=== PATIENT | male | born 1950 | race Caucasian/White ===

== ENCOUNTER 2023-08-03 16:29 | Emergency (ER) | payer OTHER, SELFPAY ==
[2023-08-03 16:45] VITALS: BP 157/77
[2023-08-03 17:07] LABS: % Basophils 0.4 % (0-2); % Eosinophils 0.8 % (0-6); % Immature Granulocytes 0.4 % (0-0.5); % Lymphocytes 19.1 % (20.5-51.1); % Monocytes 11.5 % (1.7-9.3); % Neutrophils 67.8 % (42.2-75.2); Absolute Eosinophils 0.1 10^3/uL (0-0.7); Absolute Lymphocytes 1.4 10^3/uL (1.2-3.4); Absolute Monocytes 0.8 10^3/uL (0.1-0.6); Absolute Neutrophils 4.8 10^3/uL (1.4-6.5); Hematocrit 38.2 % (39.0-52.0); Hemoglobin 14.1 g/dL (13.0-18.0); Mean Corp Hgb Conc. 36.9 g/dL (33.0-37.0); Mean Corpuscular Hgb 33.3 pg (27.0-31.0); Mean Corpuscular Volume 90.3 fL (80.0-94.0); Mean Platelet Volume 10.1 fL (7.4-10.4); Nucleated Red Blood Cells % 0 % (-); Platelet Count 271 10^3/uL (130-400); Red Blood Cell Count 4.23 10^6/uL (4.70-6.10); Red Cell Dist. Width 12.7 % (11.5-14.5); White Blood Cell Count 7.1 10^3/uL (4.8-10.8)
[2023-08-03 17:21] LABS: D-Dimer < 0.27 ug/mlFEU (0.00-0.50)
[2023-08-03 17:26] LABS: ALT (SGPT) 34 U/L (0-50); AST (SGOT) 31 U/L (17-59); Albumin 4.3 g/dl (3.5-5.0); Alkaline Phosphatase 37 U/L (38-126); Blood Urea Nitrogen 10 mg/dl (9-20); Calcium 9.3 mg/dl (8.4-10.2); Carbon Dioxide 24 mmol/L (22-30); Chloride 99 mmol/L (98-107); Glucose 139 mg/dl (70-99); Sodium 135 mmol/L (135-145); Total Bilirubin 0.8 mg/dl (0.2-1.3); Total Protein 6.8 g/dl (6.3-8.2); eGFR > 60.00
[2023-08-03 17:32] LABS: Troponin I < 0.012 ng/ml
--- NOTE | 2023-08-03 20:19 | ED.GENMED ---
History of Present Illness
General
Chief Complaint: Breathing Problem
Source: patient
Exam Limitations: none
Time Seen by Provider: 08/03/23 20:15
Travel History
Have you had any contact with someone who has COVID-19?: No
Do you have any symptoms of coronavirus? Fever > 100 degrees, chills, cough, shortness of breath, sore throat, loss of taste or smell, muscle aches, or headache?: No
History of Present Illness
History of Present Illness:
See MDM
Past History
Past History
ED Past Medical History: Cancer (Prostate CA Melanoma, right eye resected), GERD, HTN, Hypercholesterolemia, NIDDM, Psychiatric (depression, Anxiety), Other ( Trigeminal neuralgia, Sleep apnea uses CPAP, PE, C-diff) and Other (Hyponatremia,
C-diff, TIA, Gastroenteritis, Rectal bleeding, left pelvic abscess requiring IR drainage at [facility] 05/12/20, [facility] 05/12/20, Headache, Sleep apnea, PE, )
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
for removal of melanoma, right cataract removal, hemorrhoidectomy; epidurals for cervical spine disease; , Hernia repair. Twisted bowel at 4 years old)
Social History
Tobacco: Non-smoker
Alcohol: Occasional
Drug: None
Personal:
Living: alone
Employment: Disabled
Family History
Family History: Other (reviewed and noncontributory)
Phy Exam
Physical Exam
Physical Exam:
See MDM
Scores
Heart Failure Risk
Heart Failure Risk Score: Not Applicable
Course
Orders/Labs/Results
Orders:
Orders
08/03/23 16:49
EKG [Electrocardiogram (*1)] Urgent
Reason for Study: Chest Pain
08/03/23 16:50
EKG- Treatment ONCE
08/03/23 16:56
CT Chest Pe Study Urgent
Comment:
Reason For Exam: SOB
08/03/23 17:01
Complete Blood Count/With Diff Urgent
Comprehensive Metabolic Panel Urgent
D-Dimer Urgent
Troponin I Urgent
Abnormal Lab Results
08/03/23
17:01
RBC 4.23 L 10^6/uL
(4.70-6.10)
Hct 38.2 L %
(39.0-52.0)
MCH 33.3 H pg
(27.0-31.0)
Absolute Monos (auto) 0.8 H 10^3/uL
(0.1-0.6)
Lymphocytes % 19.1 L %
(20.5-51.1)
Monocytes % 11.5 H %
(1.7-9.3)
Glucose 139 H mg/dl
(70-99)
Alkaline Phosphatase 37 L U/L
(38-126)
08/03/23 17:01
08/03/23 17:01
Vital Signs
Initial and Last Documented VS:
Initial Vital Signs
Temp Pulse Resp BP Pulse Ox
98.6 F 64 19 157/77 96
08/03/23 16:45 08/03/23 16:45 08/03/23 16:45 08/03/23 16:45 08/03/23 16:45
Last Documented Vital Signs
Temp Pulse Resp BP Pulse Ox
98.6 F 64 19 157/77 96
08/03/23 16:45 08/03/23 16:45 08/03/23 16:45 08/03/23 16:45 08/03/23 16:45
MDM/Problems Addressed
Differential Diagnosis Includes:
HPI and MDM Narrative:
73-year-old male presenting with shortness of breath. He also feels mildly dizzy. This has been ongoing for the past week or so. Given his strong history of pulmonary embolism, he states his vacuum tester cans sent him in to rule out PE.
CT PE negative. Troponin negative. Normal finger-nose bilaterally. Patient looks well. Discussed follow-up with PCP
Physical exam
General: Well appearing and non-toxic
HEENT: protecting airway
Neck: appears supple
CV: No evidence of cyanosis. Regular rate and rhythm
Resp: No accessory muscle use. Lungs clear
Abd: Non-distended
Extremities: No deformities. Normal finger-nose bilaterally
Neuro: alert. No cerebellar signs
Psych: Normal affect
Skin: Intact
Problems Addressed including Acute and Chronic Conditions affecting care:
1. Shortness of breath
Acuity: acute
Prognosis: stable
Details: CT negative for PE or effusion or pneumonia
2. Dizziness
Acuity: acute
Prognosis: stable
Details: Troponin negative. EKG nonischemic. Normal finger-nose bilaterally
Updates
Differential Diagnosis (but not limited to):
Testing considered:
Drug therapy (if applicable): OTC meds, please see d/c instruction regarding Rx drugs
Amount and/or Complexity of Data Reviewed
Clinical info obtained from: Patient
External data reviewed: N/A
Labs I independently reviewed (but not limited to): Troponin normal
Radiology: The CT scan was personally and independently reviewed. In addition, official CT report reviewed.
Pulse Ox: not hypoxic
EKG independently reviewed: Sinus rhythm, normal axis, no STEMI
Cloth Bolt Bander: N/A
Critical Care: N/A
Risk of Complication:
Social Determinants of health: Good social support
Discussed with other providers: N/A
Escalation of Care includes Admit/Obs: After being observed in the Emergency Department, pt stable for discharge.
Occasional wrong word or 'sound a like' substitutions may have occurred due to the inherent limitations of voice recognition software. Read the chart carefully and recognize, using context, where substitutions have occurred.
*Critical Care Note
Total Time (30-74mins, 75-104mins- exclusive of procedures): Not Applicable
ED Attending Note
-
Portions of this chart may have been created with voice recognition software.� Occasional wrong word or��sound alike� substitutions may have occurred due to the inherent limitations of voice recognition software.
Discharge Plan
Departure
Patient Disposition: Home (Routine Discharge)
Date of Disposition: 08/03/23
Time of Disposition: 20:20
Patient with high blood pressure during this ER visit?: Yes
Discharge Problem:
Dyspnea
Instructions: Shortness of Breath (Dyspnea) (DC), BLOOD PRESSURE
Prescriptions:
No Action
lorazepam 0.5 mg Tablet
0.5 mg PO HSPRN PRN (Reason: anxiety)
Patient Comments:
06/19/2023, patient filled this medication on 06/13/2023 for 30 tablets according to PDMP.
glimepiride 4 mg Tablet
4 mg PO BID
Saccharomyces boulardii [Florastor] 250 mg Capsule
250 mg PO DAILY
cholecalciferol (vitamin D3) [Vitamin D3] 25 mcg (1,000 unit) Tablet
25 mcg PO DAILY
oxcarbazepine 600 mg Tablet
600 mg PO BID
calcium citrate 200 mg (950 mg) Tablet
200 mg PO DAILY
pantoprazole 40 MG tablet,delayed release (DR/EC)
40 mg PO QPM
Eliquis 5 mg Tablet
5 mg PO BID 30 Days Qty: 60 0RF
amlodipine 5 mg tablet
5 mg PO DAILY
ferrous sulfate 325 mg (65 mg iron) Tablet
325 mg PO DAILYPRN PRN (Reason: supplement)
Patient Comments:
06/19/2023, patient states that they take this supplement roughly three times per week.
albuterol sulfate 90 mcg/actuation HFA aerosol inhaler
2 puff INHALATION R Q4HPRN PRN (Reason: sob/wheezing)
cyclosporine 0.05 % dropperette
1 drp BOTH EYES BID
rosuvastatin [Crestor] 20 mg tablet
20 mg PO DAILY Qty: 30 0RF
furosemide [Lasix] 20 mg tablet
20 mg PO DAILY Qty: 30 0RF
carvedilol 12.5 mg Tablet
12.5 mg PO BID
hydralazine 25 mg Tablet
25 mg PO BID
Theragen Tablet
1 tab PO DAILY
Psyllium Husk Fibre Powder
1 tbsp PO DAILY
gabapentin 300 mg Capsule
300 mg PO BID
loteprednol etabonate 0.5 % Drops,Suspension
1 drp RIGHT EYE BID
fluticasone propionate [Flovent HFA] 110 mcg/actuation Hfa Aerosol Inhaler
2 puff INHALATION R BID
bisacodyl 5 mg Tablet
10 mg PO HSPRN PRN (Reason: constipation)
tadalafil 5 mg Tablet
5 mg PO DAILY
escitalopram oxalate 5 mg Tablet
5 mg PO DAILY
melatonin 10 mg Tablet
10 mg PO HS
Mounjaro 5 mg/0.5 mL Pen Injector
5 mg SC FR
metformin 500 MG tablet
500 mg PO BID
Activity Restrictions/Additional Instructions:
As we discussed, it is not certain what is causing your symptoms. The blood work for your heart was within normal limits and the CT scan was negative for blood clots.
Please return for any worsening symptoms.
You may return at any time if you have further concerns.
Please follow up with your doctor at the first available appointment, preferably this week.
Thank you for choosing [facility].
== END 2023-08-03 20:47 | disposition home or self-care (01) ==
LOC: EMR 16:29
PROVIDERS: EMERGENCY PHYSICIAN Student in an Organized Health Care Education/Training Program; FAMILY PHYSICIAN Family Medicine
DX: R06.02 Shortness of breath (principal); R42 Dizziness and giddiness; K21.9 Gastro-esophageal reflux disease without esophagitis; E11.9 Type 2 diabetes mellitus without complications; F32.A Depression, unspecified; F41.9 Anxiety disorder, unspecified; I10 Essential (primary) hypertension; Z85.048 Personal history of other malignant neoplasm of rectum, rectosigmoid junction, and anus; Z85.46 Personal history of malignant neoplasm of prostate; Z85.820 Personal history of malignant melanoma of skin; Z86.711 Personal history of pulmonary embolism; Z86.73 Personal history of transient ischemic attack (TIA), and cerebral infarction without residual deficits; Z90.79 Acquired absence of other genital organ(s)
CPT/HCPCS: 99284; 71275; 80053; 84484; 85025; 85379; 93005; Q9967

== ENCOUNTER → 2023-10-22 14:26 | Outpatient (REF) | payer OTHER, SELFPAY | LOC: HWRCS 14:26 | PROVIDERS: ATTENDING PHYSICIAN Internal Medicine Pulmonary Disease; FAMILY PHYSICIAN Family Medicine | DX: R06.00 Dyspnea, unspecified (principal); R06.02 Shortness of breath; R13.10 Dysphagia, unspecified | CPT/HCPCS: 93306 ==

== ENCOUNTER 2023-11-15 12:19 | Emergency (ER) | payer OTHER, SELFPAY ==
[2023-11-15 12:27] VITALS: BP 126/63
[2023-11-15 12:52] VITALS: BMI 28.5
[2023-11-15 13:29] VITALS: BP 122/61
[2023-11-15 13:39] LABS: % Basophils 0.4 % (0-2); % Eosinophils 0.7 % (0-6); % Immature Granulocytes 0.7 % (0-0.5); % Lymphocytes 16.3 % (20.5-51.1); % Monocytes 11.3 % (1.7-9.3); % Neutrophils 70.6 % (42.2-75.2); Absolute Eosinophils 0.1 10^3/uL (0-0.7); Absolute Immature Granulocytes 0.1 10^3/uL (0-0.05); Absolute Lymphocytes 1.1 10^3/uL (1.2-3.4); Absolute Monocytes 0.8 10^3/uL (0.1-0.6); Absolute Neutrophils 4.8 10^3/uL (1.4-6.5); Hematocrit 37.6 % (39.0-52.0); Hemoglobin 13.6 g/dL (13.0-18.0); Mean Corp Hgb Conc. 36.2 g/dL (33.0-37.0); Nucleated Red Blood Cells % 0 % (-); Platelet Count 259 10^3/uL (130-400); Red Cell Dist. Width 12.8 % (11.5-14.5); White Blood Cell Count 6.8 10^3/uL (4.8-10.8)
[2023-11-15 13:55] LABS: ALT (SGPT) 27 U/L (0-50); AST (SGOT) 24 U/L (17-59); Albumin 4.6 g/dl (3.5-5.0); Alkaline Phosphatase 41 U/L (38-126); Blood Urea Nitrogen 11 mg/dl (9-20); Calcium 9.3 mg/dl (8.4-10.2); Carbon Dioxide 22 mmol/L (22-30); Chloride 97 mmol/L (98-107); Estimated Creatinine Clearance 82 ml/min; Glucose 153 mg/dl (70-99); Potassium 3.7 mmol/L (3.5-5.1); Sodium 129 mmol/L (135-145); Total Bilirubin 0.7 mg/dl (0.2-1.3); eGFR > 60.00
[2023-11-15 14:00] VITALS: BP 134/65
[2023-11-15 14:04] LABS: NT-proBNP 26.2 pg/ml; Troponin I < 0.012 ng/ml
[2023-11-15 14:16] VITALS: BP 134/65
[2023-11-15 15:00] VITALS: BP 138/78
--- NOTE | 2023-11-15 15:16 | ED.GENMED ---
History of Present Illness
General
Chief Complaint: Chest Pain
Time Seen by Provider: 11/15/23 12:51
Travel History
Have you had any contact with someone who has COVID-19?: No
Do you have any symptoms of coronavirus? Fever > 100 degrees, chills, cough, shortness of breath, sore throat, loss of taste or smell, muscle aches, or headache?: No
History of Present Illness
History of Present Illness:
73-year-old male with history of saddle pulmonary embolism, gyo-siokoep-lymvilowl diabetes, and hypertension presents to the emergency department for evaluation of shortness of breath and dyspnea on exertion has been ongoing for the past week. He
saw his primary care physician and was referred to the emergency department for further workup. Denies any exertional chest pain and states the symptoms are nonexertional or positional. Denies any leg swelling or calf cramping. No fevers or
chills. No coughing. He is anticoagulated and has yazidi with his dosing
Past History
Past History
ED Past Medical History: Cancer (Prostate CA Melanoma, right eye resected), GERD, HTN, Hypercholesterolemia, NIDDM, Psychiatric (depression, Anxiety), Other ( Trigeminal neuralgia, Sleep apnea uses CPAP, PE, C-diff) and Other (Hyponatremia,
C-diff, TIA, Gastroenteritis, Rectal bleeding, left pelvic abscess requiring IR drainage at [facility] 05/12/20, saddle emoboli 05/12/20, Headache, Sleep apnea, PE, )
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
for removal of melanoma, right cataract removal, hemorrhoidectomy; epidurals for cervical spine disease; , Hernia repair. Twisted bowel at 4 years old)
Social History
Tobacco: Non-smoker
Alcohol: Occasional
Drug: None
Personal:
Living: alone
Employment: Disabled
Family History
Family History: Other (reviewed and noncontributory)
Review of Systems
Review of Systems
Allergies reviewed?: Yes
All Other Systems: ROS reviewed and negative except as documented in HPI and ROS
Phy Exam
Physical Exam
Physical Exam:
GEN: Well appearing, NAD, WDWN
Eyes: PERRLA, EOMs intact, no scleral icterus
HENT: NCAT, oral mucosa moist
Lungs: CTAB, no wheezes, rales, rhonchi, normal chest wall excursion
Cardiac: RRR, no M/R/G, no peripheral edema. Radial pulses 2+ bilat
Neuro: AO x 3, no focal deficits to BUE/BLE, normal sensation throughout
MSK: No gross deformity or ecchymosis. No edema. No digital clubbing
Skin: No rashes, petechiae. Normal color, no pallor or jaundice.
Psych: Calm, cooperative, proper hygiene
Scores
Heart Score for Chest Pain Patients
STEMI patient?: Not applicable
Course
Orders/Labs/Results
Orders:
Orders
11/15/23 12:21
Electrocardiogram (*1) Urgent
Reason for Study: Chest Pain
EKG- Treatment ONCE
11/15/23 12:53
CXR2 [CR Chest - 2 Views ] Urgent
Comment:
Reason For Exam: shortness of breath
11/15/23 13:30
Complete Blood Count/With Diff Urgent
Comprehensive Metabolic Panel Urgent
NT-proBNP Urgent
Troponin I Urgent
11/15/23 14:15
CT Chest Pe Study Urgent
Comment:
Reason For Exam: SOB/chest pain, prior hx of PE
Abnormal Lab Results
11/15/23
13:30
RBC 4.00 L 10^6/uL
(4.70-6.10)
Hct 37.6 L %
(39.0-52.0)
MCH 34.0 H pg
(27.0-31.0)
Abs Immat Gran (auto) 0.1 H 10^3/uL
(0-0.05)
Absolute Lymphs (auto) 1.1 L 10^3/uL
(1.2-3.4)
Absolute Monos (auto) 0.8 H 10^3/uL
(0.1-0.6)
Immature Gran % 0.7 H %
(0-0.5)
Lymphocytes % 16.3 L %
(20.5-51.1)
Monocytes % 11.3 H %
(1.7-9.3)
Sodium 129 L mmol/L
(135-145)
Chloride 97 L mmol/L
(98-107)
Glucose 153 H mg/dl
(70-99)
11/15/23 13:30
11/15/23 13:30
Vital Signs
Initial and Last Documented VS:
Initial Vital Signs
Temp Pulse Resp BP Pulse Ox
98.3 F 74 18 126/63 98
11/15/23 12:27 11/15/23 12:27 11/15/23 12:27 11/15/23 12:27 11/15/23 12:27
Last Documented Vital Signs
Temp Pulse Resp BP Pulse Ox
97.5 F 70 16 134/65 97
11/15/23 14:16 11/15/23 14:16 11/15/23 14:16 11/15/23 14:16 11/15/23 14:16
MDM/Problems Addressed
MDM/Problems Addressed:
Patient's cardiac workup is reassuring, EKG and troponin negative. Unfortunately patient does like the symptoms to her past pulmonary embolism however at this time I think this is unlikely given that he is anticoagulated. Nevertheless a PE study
was ordered however the patient opted not to stay in the emergency department for this. Due to family emergency request to be discharged immediately. He is clinically stable and I feel that PE is unlikely at this do not feel this is unreasonable.
I contacted primary care physician for close outpatient follow-up. He is also seeing his burlesque dancer recently with a benign workup
*Critical Care Note
Total Time (30-74mins, 75-104mins- exclusive of procedures): Not Applicable
ED Attending Note
-
Portions of this chart may have been created with voice recognition software.� Occasional wrong word or��sound alike� substitutions may have occurred due to the inherent limitations of voice recognition software.
Discharge Plan
Departure
Patient Disposition: Home (Routine Discharge)
Date of Disposition: 11/15/23
Time of Disposition: 15:38
Patient with high blood pressure during this ER visit?: No
Discharge Problem:
Chest pain
Instructions: Chest Pain PCP Follow Up
Prescriptions:
No Action
lorazepam 0.5 mg Tablet
0.5 mg PO HSPRN PRN (Reason: anxiety)
Patient Comments:
06/19/2023, patient filled this medication on 06/13/2023 for 30 tablets according to PDMP.
glimepiride 4 mg Tablet
4 mg PO BID
Saccharomyces boulardii [Florastor] 250 mg Capsule
250 mg PO DAILY
cholecalciferol (vitamin D3) [Vitamin D3] 25 mcg (1,000 unit) Tablet
25 mcg PO DAILY
oxcarbazepine 600 mg Tablet
600 mg PO BID
calcium citrate 200 mg (950 mg) Tablet
200 mg PO DAILY
pantoprazole 40 MG tablet,delayed release (DR/EC)
40 mg PO QPM
Eliquis 5 mg Tablet
5 mg PO BID 30 Days Qty: 60 0RF
amlodipine 5 mg tablet
5 mg PO DAILY
ferrous sulfate 325 mg (65 mg iron) Tablet
325 mg PO DAILYPRN PRN (Reason: supplement)
Patient Comments:
06/19/2023, patient states that they take this supplement roughly three times per week.
albuterol sulfate 90 mcg/actuation HFA aerosol inhaler
2 puff INHALATION R Q4HPRN PRN (Reason: sob/wheezing)
cyclosporine 0.05 % dropperette
1 drp BOTH EYES BID
rosuvastatin [Crestor] 20 mg tablet
20 mg PO DAILY Qty: 30 0RF
furosemide [Lasix] 20 mg tablet
20 mg PO DAILY Qty: 30 0RF
carvedilol 12.5 mg Tablet
12.5 mg PO BID
hydralazine 25 mg Tablet
25 mg PO BID
Theragen Tablet
1 tab PO DAILY
Psyllium Husk Fibre Powder
1 tbsp PO DAILY
gabapentin 300 mg Capsule
300 mg PO BID
loteprednol etabonate 0.5 % Drops,Suspension
1 drp RIGHT EYE BID
fluticasone propionate [Flovent HFA] 110 mcg/actuation Hfa Aerosol Inhaler
2 puff INHALATION R BID
bisacodyl 5 mg Tablet
10 mg PO HSPRN PRN (Reason: constipation)
tadalafil 5 mg Tablet
5 mg PO DAILY
escitalopram oxalate 5 mg Tablet
5 mg PO DAILY
melatonin 10 mg Tablet
10 mg PO HS
Mounjaro 5 mg/0.5 mL Pen Injector
5 mg SC FR
metformin 500 MG tablet
500 mg PO BID
Referrals:
Maritza Vaz MD [Family Provider] -
Activity Restrictions/Additional Instructions:
Do not hesitate to return if your symptoms worsen
Interventions
Interventions:
*Risk Screen - Suicide Last Done: 11/15/23 12:27
*General Assessment Last Done: 11/15/23 12:27
*Neglect/Abuse Screening Last Done: 11/15/23 12:27
ED- Fall Risk Assessment Last Done: 11/15/23 12:52
*ED COVID-19 Vaccine History Last Done: 11/15/23 12:52
ED- Cardiac Assessment Last Done: 11/15/23 12:52
Discharge Date and Time
Print Language: SETSWANA
--- NOTE | 2023-11-15 15:38 | EDRN ---
the pt pressed the call vargas and this RN entered the pts room, the pt stated to this RN, 'I can't wait for the CT scan, i need to pick my grandson up i need and want to leave now', this RN notified the provider Nikita NICKERSON and the provider spoke
with the pt
== END 2023-11-15 15:41 | disposition home or self-care (01) ==
LOC: EMR 12:19
PROVIDERS: Physician Assistant; EMERGENCY PHYSICIAN Emergency Medicine; FAMILY PHYSICIAN Family Medicine
DX: R07.89 Other chest pain (principal); I10 Essential (primary) hypertension; E11.9 Type 2 diabetes mellitus without complications
CPT/HCPCS: 99285; 71046; 80053; 83880; 84484; 85025; 93005

== ENCOUNTER 2023-12-30 22:06 | Inpatient (IN) | payer OTHER, SELFPAY ==
[2023-12-30 16:47] VITALS: BP 135/83
[2023-12-30 17:00] LABS: % Basophils 0.3 % (0-2); % Eosinophils 0.4 % (0-6); % Immature Granulocytes 0.7 % (0-0.5); % Lymphocytes 20.1 % (20.5-51.1); % Monocytes 13.1 % (1.7-9.3); % Neutrophils 65.4 % (42.2-75.2); Absolute Immature Granulocytes 0.1 10^3/uL (0-0.05); Absolute Lymphocytes 1.5 10^3/uL (1.2-3.4); Absolute Neutrophils 4.8 10^3/uL (1.4-6.5); Hematocrit 35.3 % (39.0-52.0); Hemoglobin 13.3 g/dL (13.0-18.0); Mean Corp Hgb Conc. 37.7 g/dL (33.0-37.0); Mean Corpuscular Volume 90.3 fL (80.0-94.0); Mean Platelet Volume 9.4 fL (7.4-10.4); Nucleated Red Blood Cells % 0 % (-); Platelet Count 283 10^3/uL (130-400); Red Blood Cell Count 3.91 10^6/uL (4.70-6.10); Red Cell Dist. Width 12.6 % (11.5-14.5); White Blood Cell Count 7.3 10^3/uL (4.8-10.8)
[2023-12-30 17:16] LABS: COVID-19 Antigen Negative (Negative)
[2023-12-30 17:39] LABS: ALT (SGPT) 22 U/L (0-50); AST (SGOT) 20 U/L (17-59); Albumin 4.5 g/dl (3.5-5.0); Alkaline Phosphatase 38 U/L (38-126); Blood Urea Nitrogen 10 mg/dl (9-20); Calcium 9.2 mg/dl (8.4-10.2); Carbon Dioxide 20 mmol/L (22-30); Chloride 95 mmol/L (98-107); Glucose 102 mg/dl (70-99); Potassium 3.4 mmol/L (3.5-5.1); Sodium 126 mmol/L (135-145); Total Bilirubin 0.7 mg/dl (0.2-1.3); Total Protein 6.9 g/dl (6.3-8.2); eGFR > 60.00
--- NOTE | 2023-12-30 19:35 | ED.GENMED ---
History of Present Illness
General
Chief Complaint: Weakness
Source: patient
Exam Limitations: none
Time Seen by Provider: 12/30/23 19:33
Nursing documentation reviewed up to this point in time: agreed with
History of Present Illness
History of Present Illness:
Patient is a 73-year-old male with history of PE sleep apnea COPD hypertension hyperlipidemia followed at [facility] presents to the ER for evaluation. Patient reports for the past several days he has been very short of breath. Today he felt very
fatigued. In fact he was walking out of his chair prior to arrival and felt his get a pass out. He had to hold onto the. He denies any chest pain. He is on Eliquis for history of prior PE.
Past History
Past History
ED Past Medical History: Cancer (Prostate CA Melanoma, right eye resected), GERD, HTN, Hypercholesterolemia, NIDDM, Psychiatric (depression, Anxiety), Other ( Trigeminal neuralgia, Sleep apnea uses CPAP, PE, C-diff) and Other (Hyponatremia,
C-diff, TIA, Gastroenteritis, Rectal bleeding, left pelvic abscess requiring IR drainage at [facility] 05/12/20, [facility] 05/12/20, Headache, Sleep apnea, PE, )
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
for removal of melanoma, right cataract removal, hemorrhoidectomy; epidurals for cervical spine disease; , Hernia repair. Twisted bowel at 4 years old)
Social History
Tobacco: Non-smoker
Alcohol: Occasional
Drug: None
Personal:
Living: alone
Employment: Disabled
Family History
Family History: Other (reviewed and noncontributory)
Review of Systems
Review of Systems
Allergies reviewed?: Yes
All Other Systems: ROS reviewed and negative except as documented in HPI and ROS
Constitutional: Reports fatigue; Denies fever or chills
EENT: Reports no symptoms
Respiratory: Reports cough and trouble breathing
Cardiac: Reports no symptoms; Denies chest pain
ABD/GI: Reports no symptoms
: Reports no symptoms
Musculoskeletal: Reports no symptoms
Skin: Reports no symptoms
Neurological: Reports no symptoms
Hematologic/Lymphatic: Reports no symptoms
Psychiatric: Reports no symptoms
Phy Exam
General Physical Exam
General Presentation: no apparent distress
General age: appears stated age
General Skin: warm and dry
General Habitus: normal
General Mental: alert
General Hydration: appears well hydrated
Cardiovascular Exam
Cardiovascular Exam: regular rate/rhythm, no murmur and normal peripheral pulses
Pulmonary Exam
Pulmonary Exam: lungs clear and no respiratory distress
Neurological Exam
Neurological Exam: alert and oriented x3
Musculoskeletal Exam
Musculoskeletal Exam: full ROM and neck pain
Skin Exam
Skin Exam: normal color and warm/dry
Psychiatric Exam
Psychiatric Exam: normal mood/affect
Course
Orders/Labs/Results
Orders:
Orders
12/30/23 Dinner
2000 calorie (17 carb) Diabetic
At Your Request: Full Participation
Does patient need a safe tray?: No
Fluid Restriction: 1200 mL/day (40 oz)
12/30/23 16:50
ECG [Electrocardiogram (*1)] Urgent
Reason for Study: Shortness of Breath
12/30/23 16:51
EKG- Treatment ONCE
12/30/23 16:53
COVID-19 Antigen Urgent
Source: Nasal Swab
12/30/23 16:54
Complete Blood Count/With Diff Urgent
Comprehensive Metabolic Panel Urgent
Magnesium Urgent
Comment: ADD ON
Serum Osmolality Urgent
Comment: ADD ON
12/30/23 19:36
Chest [CR Chest - 2 Views ] Urgent
Comment:
Reason For Exam: sob
12/30/23 21:33
Add On- LAB Urgent
Tests Added?: serum osmo
12/30/23 21:34
Admit/Transfer Patient As Directed
Co-Sign Provider:
Level of Care: Inpatient admission
Assign to:: Telemetry
Physician / Group: Javier
Diagnosis: Hyponatremia
Reason for Telemetry: Arrhythmia
Date to Stop Telemetry: 01/02/24
Time to Stop Telemetry: 11:00
Reason for Hospitalization: sodium management
Expected length of stay greater than two midnights?: Yes
ELOS- Estimated Length of Stay in days: 3
I certify the patient meets the requirements for IP care: Yes
12/30/23 21:42
Add On- LAB Urgent
Tests Added?: magnesium
Potassium Chloride [KCl] 40 meq PO NOW STA
12/30/23 21:45
Code Status As Directed
Resuscitation Status: Full Code
12/30/23 22:34
Urine Osmolality Random [Osmolality, Random Urine] Urgent
Date Specimen was Collected: 12/30/23
Time Specimen was Collected: 22:33
Urine Sodium Urgent
Date Specimen was Collected: 12/30/23
Time Specimen was Collected: 22:33
12/30/23 22:55
Acetaminophen [Tylenol] 650 mg PO Q4HPRN PRN
Dextrose 50%-Water [Dextrose 50% Syringe] 12.5 grams IV [id number] PRN
Glucagon [GlucaGen] 1 mg IM PRN PRN
Ipratropium/Albuterol Sulfate [Duoneb] 3 ml INH R Q4HPRN PRN
Lorazepam [Ativan] 0.5 mg PO TID
Melatonin 20 mg PO HS
12/30/23 22:55
NEPHROLOGY CONSULT Routine
Consulting Provider: Everett Sin
Was physician already notified: Yes
Bedside Glucose Monitoring As Directed
Frequency: AC&HS
Additional Instructions:: Change to q6h if pt on TPN, tube feeding or not eating
I&O [Intake/ Output] As Directed
Frequency: q12h
Vital Signs As Directed
Frequency: Per unit guidelines
Weight As Directed
Frequency: Daily
12/31/23 05:44
Basic Metabolic Panel IN AM
Complete Blood Count/No Diff IN AM
Glycohemoglobin (HgbA1c) IN AM
12/31/23 07:30
Insulin Aspart Corrective Low [Novolog Flexpen-Low Resistance] See Protocol SC AC
12/31/23 08:00
Amlodipine [Norvasc] 5 mg PO DAILY
Budesonide [Pulmicort] 0.5 mg INH R BID
Carvedilol [Coreg] 12.5 mg PO BID
Escitalopram Oxalate [Lexapro] 5 mg PO DAILY
Gabapentin [Neurontin] 300 mg PO BID
Glimepiride [Amaryl] 4 mg PO BID AT 0800,1600
HydrALAZINE [Apresoline] 25 mg PO BID
Ipratropium/Albuterol Sulfate [Duoneb] 3 ml INH R QID
METFORMIN HCl [Glucophage] 500 mg PO BID AT 0800,1700
Oxcarbazepine [Trileptal] 600 mg PO BID
Pantoprazole [Protonix] 40 mg PO BID
Rosuvastatin Calcium [Crestor] 20 mg PO DAILY
Saccharomyces Boulardii [Florastor] 250 mg PO DAILY
01/02/24 11:00
DC Protocol for Telemetry ONCE
Abnormal Lab Results
12/30/23
16:54
RBC 3.91 L 10^6/uL
(4.70-6.10)
Hct 35.3 L %
(39.0-52.0)
MCH 34.0 H pg
(27.0-31.0)
MCHC 37.7 H g/dL
(33.0-37.0)
Abs Immat Gran (auto) 0.1 H 10^3/uL
(0-0.05)
Absolute Monos (auto) 1.0 H 10^3/uL
(0.1-0.6)
Immature Gran % 0.7 H %
(0-0.5)
Lymphocytes % 20.1 L %
(20.5-51.1)
Monocytes % 13.1 H %
(1.7-9.3)
Sodium 126 L mmol/L
(135-145)
Potassium 3.4 L mmol/L
(3.5-5.1)
Chloride 95 L mmol/L
(98-107)
Carbon Dioxide 20 L mmol/L
(22-30)
Glucose 102 H mg/dl
(70-99)
Serum Osmolality 259 L mOsm/kg
(275-300)
12/30/23 16:54
12/30/23 16:54
Vital Signs
Initial and Last Documented VS:
Initial Vital Signs
Temp Pulse Resp BP Pulse Ox
98.5 F 70 18 135/83 97
12/30/23 16:47 12/30/23 16:47 12/30/23 16:47 12/30/23 16:47 12/30/23 16:47
Last Documented Vital Signs
Temp Pulse Resp BP Pulse Ox
98.2 F 71 16 127/71 97
01/01/24 11:43 01/01/24 11:43 01/01/24 11:43 01/01/24 11:43 01/01/24 11:43
[employer] consulted with Physician
[employer] consulted with physician?: Yes
Name of Physician Consulted: barbara
MDM/Problems Addressed
Differential Diagnosis Includes:
Not limited to dehydration electrolyte abnormality anemia pneumonia
MDM/Problems Addressed:
Patient is a 73-year-old male who presents to the ER for evaluation. Patient has been intermittently short of breath and as documented has history of lung disease. In addition he felt like he was going to pass out today and has been very
fatigued. Patient presents to the ER however awake alert no acute distress. He had no associated chest pain symptoms. He is afebrile with normal white count stable hemoglobin. Patient has a low sodium of 126. He has had issues with hyponatremia
in the past. No chest pain no acute EKG findings. Will admit for near syncope and symptomatic hyponatremia. Case discussed admitting hospitalist
*Pulse Oximetry
Patient hypoxic: no
*EKG
Interpreted by ED Provider?: Yes
Heart Rate: 73
Rate: normal
Rhythm: sinus
Ischemia: no ischemia
*Critical Care Note
Total Time (30-74mins, 75-104mins- exclusive of procedures): Not Applicable
ED Attending Note
-
Portions of this chart may have been created with voice recognition software.� Occasional wrong word or��sound alike� substitutions may have occurred due to the inherent limitations of voice recognition software.
Discharge Plan
Departure
Patient Disposition: Admit
Date of Disposition: 12/30/23
Time of Disposition: 21:13
Admit to: Med/Surg
Presentation/result/management discussed w/ accepting MD/DO: Hospitalist
Patient with high blood pressure during this ER visit?: Yes
Condition: Fair
Covid-19: Not Applicable
Discharge Problem:
Acute hyponatremia, Fatigue
Interventions
Interventions:
*Risk Screen - Suicide Last Done: 12/30/23 22:39
*General Assessment Last Done: 12/30/23 22:39
*Neglect/Abuse Screening Last Done: 12/30/23 22:39
ED- Fall Risk Assessment Last Done: 12/30/23 22:39
*ED COVID-19 Vaccine History Last Done: 12/30/23 22:39
*Nursing Disposition Last Done: 12/30/23 22:39
ED- Cardiac Assessment Last Done: 12/30/23 19:15
ED- Neurological Assessment Last Done: 12/30/23 19:15
ED- Pulmonary Assessment Last Done: 12/30/23 19:15
Discharge Date and Time
Discharge Date/Time: 12/30/23 22:40
[2023-12-30 20:40] VITALS: BP 150/94
[2023-12-30 21:00] VITALS: BP 169/84
--- NOTE | 2023-12-30 21:47 | HPS.HSE ---
Family Physician
-
Family Physician: Rigoberto Conway
Chief Complaint
-
Generalized weakness and shortness of breath
History of Present Illness
Patient is a 73-year-old male past medical history of nonobstructive coronary artery disease, hypertension, diabetes mellitus, and pulmonary embolism who presents with weakness and shortness of breath. Patient reports he has had increased shortness
of breath, described as difficulty taking full breaths for the last several days. He states he feels as though he is trying to breathe through a straw. He has also noted increased generalized weakness over the last several days. Today he felt so
poorly that he developed dizziness and almost passed out while at the supermarket. He denies chest pain or palpitations. He denies fever, sweats or chills. Workup in the emergency department with sodium 126. Patient notes that his PCP recently
increase his Lexapro from 5 mg to 10 mg daily. He denies following a fluid restriction, but does not appear to drink excessive amounts of fluid over the course of the day. He denies lower extremity edema.
Medical History
Past Medical History
Past Medical History: Reports Other
Additional Past Medical History:
Non-Obstructing Coronary Artery Disease
COPD
Essential Hypertension
Hyperlipidemia
Diabetes Mellitus, Type II
Pulmonary Embolism
Trigeminal Neuralgia
Obstructive Sleep Apnea
GERD
Prostate Cancer
Right Eye Melanoma
Past Surgical History: Reports Other
Additional Past Surgical History:
Prostatectomy
Hernia Repair
[facility] for Melanoma Removal
Cervical Spine Fusion
Bilateral Knee Surgeries
Right Shoulder Surgery
Social History
Tobacco: Non-smoker
Alcohol: None
Personal:
Family History
Family History: Not pertinent
Allergies / Home Medications
Allergies reflects when Allergies were last updated in [facility].
Home Medications with original date entered in [facility]
Allergy/Medication List:
Allergies
Allergy/AdvReac Type Severity Reaction Status Date / Time
butorphanol Allergy Pharmacy Verified 12/30/23 16:48
to Review
onabotulinumtoxinA Allergy FACIAL PAIN Verified 12/30/23 16:48
[From Botox]
Home Medications
Saccharomyces boulardii 250 mg capsule (Florastor) 250 mg PO DAILY Supplement 02/16/22
cholecalciferol (vitamin D3) 25 mcg (1,000 unit) tablet (Vitamin D3) 25 mcg PO DAILY Supplement 02/16/22
glimepiride 4 mg tablet 4 mg PO BID Diabetes 02/16/22
lorazepam 0.5 mg tablet 0.5 mg PO TID 02/16/22
calcium citrate 200 mg (950 mg) tablet 200 mg PO DAILY Supplement 03/27/22
oxcarbazepine 600 mg tablet 600 mg PO BID Seizures 03/27/22
pantoprazole 40 mg tablet,delayed release 40 mg PO QPM GERD 03/27/22
apixaban 5 mg tablet (Eliquis) 5 mg PO BID 30 days #60 tabs 04/11/22
albuterol sulfate 90 mcg/actuation aerosol inhaler 2 puff inhalation R Q4HPRN PRN sob/wheezing 01/29/23
amlodipine 5 mg tablet 5 mg PO DAILY Blood Pressure 01/29/23
cyclosporine 0.05 % eye drops in a dropperette 1 drp BOTH EYES BID Eye Condition 01/29/23
furosemide 20 mg tablet (Lasix) 20 mg PO DAILY #30 tabs 02/01/23
rosuvastatin 20 mg tablet (Crestor) 20 mg PO DAILY #30 tabs 02/01/23
carvedilol 12.5 mg tablet 12.5 mg PO BID 06/19/23
gabapentin 300 mg capsule 300 mg PO BID 06/19/23
hydralazine 25 mg tablet 25 mg PO BID 06/19/23
melatonin 10 mg tablet 20 mg PO HS 06/19/23
metformin 500 mg tablet 500 mg PO BID Diabetes 06/19/23
psyllium 1 tbsp PO DAILY 06/19/23
tadalafil 5 mg tablet 5 mg PO DAILY 06/19/23
therapeutic multivitamin 1 tab PO DAILY 06/19/23
tirzepatide 5 mg/0.5 mL subcutaneous pen injector (Mounjaro) 10 mg SC FR 06/19/23
cetirizine 10 mg tablet (Zyrtec) 10 mg PO DAILY 12/30/23
escitalopram oxalate 10 mg tablet 10 mg PO DAILY 12/30/23
fluticasone fur. 100 mcg-umeclid 62.5 mcg-vilant 25 mcg inhalat.powder (Trelegy Ellipta) 1 inh inhalation DAILY 12/30/23
Review of Systems
-
A 12 point ROS was completed and negative except as noted: Yes
Constitutional: Denies Fever or Chills
Respiratory: Reports Trouble Breathing; Denies Cough
Cardiac: Denies Chest Pain or Palpitations
Abdomen/GI: Reports Bloody Stools and Other (Difficulty swallowing); Denies Abdominal Pain, Nausea, Vomiting or Diarrhea
Physical Exam
Vital Signs
Vital Signs
Temp Pulse Resp BP Pulse Ox
98.5 F 73 19 169/84 97
12/30/23 16:47 12/30/23 21:30 12/30/23 21:30 12/30/23 21:00 12/30/23 21:30
Physical Exam
General: Comfortable and Conversant
HEENT: Anicteric and Other (Mucous membrane appear slightly dry)
Respiratory: Clear (Slightly diminished) and Non Labored Respirations; No Wheezes
Cardiac: S1/S2 and Regular Rhythm
GI: Soft and Non Tender
Rectal: Deferred by Provider
Musculoskeletal: No Clubbing, No Cyanosis and No Edema
Skin: Warm and Dry
Neuro: Awake, Alert, Oriented and Nonfocal/grossly intact
Psych: Calm
Laboratory Results
-
12/30/23 16:54
12/30/23 16:54
Laboratory Results
Total Bilirubin 0.7 mg/dl (0.2-1.3) 12/30/23 16:54
AST 20 U/L (17-59) 12/30/23 16:54
ALT 22 U/L (0-50) 12/30/23 16:54
Alkaline Phosphatase 38 U/L (38-126) 12/30/23 16:54
Data Reviewed
-
Diagnostic Radiology: Report Reviewed by me
Lab Data: Labs Reviewed by me
Old Records: Reviewed
Impression/Plan
-
Dysphagia/Odynophagia
-Consult GI
-Increase Protonix to BID
Rectal Bleeding, intermittent episodes of bright red blood per rectum
-Consult GI
-Hold Eliquis
Acute on Chronic Hyponatremia, likely related to increased Lexapro dose
-Consult Nephrology
-Check urine sodium and urine osmo
-Decrease Lexapro back to previous dose of 5mg Daily
-Hold Lasix
-Continue fluid restriction
COPD, no acute exacerbation
-Transition Trelegy to Pulmicort Neb and Duoneb QID during hospitalization
Essential Hypertension
-Continue amlodipine and carvedilol
Hyperlipidemia
-Continue Crestor
Diabetes Mellitus, Type II
-Continue metformin and glipizide
-Patient maintained on Mounjaro as outpatient
-Monitor sugars and continue coverage insulin
Trigeminal Neuralgia
-Continue gabapentin and oxcarbazepine
Obstructive Sleep Apnea
-Continue CPAP
Hx Pulmonary Embolism
-Eliquis on hold due to reports of bright red blood per rectum
Code Status: Full Code
[2023-12-30 22:00] VITALS: BP 181/100
[2023-12-30 22:17] LABS: Magnesium 1.7 mg/dl (1.6-2.3)
--- NOTE | 2023-12-30 22:18 | W.PN.UPDATE ---
Update Note
Progress Note Update
This is an addendum to the H&P written by LIYA Garcia on 12/30/2023. Patient seen and examined independently with PA.
73-year-old male past medical history of pulmonary embolism on Eliquis, sleep apnea, COPD, diabetes, hypertension, hyperlipidemia, hyponatremia, trigeminal neuralgia, presenting for shortness of breath, fatigue and almost passing out. He has
recently been having pain in his throat which he notices when he eats food and possibly difficulty swallowing which may be worse with solids. He has also been noticing bright red blood in his stool over the past several weeks. He saw ENT 6 weeks
ago before odynophagia started and evaluation was unremarkable. Sore throat was attributed to GERD. He has weight loss which is intentional.
Labs show hyponatremia sodium of 126 from prior sodium level 129 in November. Baseline is around 129. Also hypokalemia with potassium 3.4. Denies excessive fluid intake. Denies alcohol. Recently dose of escitalopram was increased.
# Dysphagia/odynophagia
-Possible underlying esophagitis
-Increased dose of Protonix to twice daily
-GI consulted
# Rectal bleeding
-Possibly upper GI related
-Hold Eliquis for now
# Dyspnea unclear etiology
-Seems to be related to upper GI problems
-Patient not hypoxic
-Chest x-ray unremarkable
-recently had echo which was unremarkable
# Fatigue/presyncope likely related to hyponatremia/hypokalemia
-See individually below
# Euvolemic hyponatremia
-Likely SIADH related to increased dose of SSRI
-Workup pending
-Fluid restriction
-Nephrology consult
# Hypokalemia
-Replete potassium
[2023-12-30 22:24] LABS: Osmolality Serum 259 mOsm/kg (275-300)
[2023-12-30 22:57] VITALS: BMI 37.0
[2023-12-30 23:05] LABS: Urine Sodium 63 mmol/L (30-90)
[2023-12-30 23:13] LABS: Glucose - Point of Care 107 mg/dl (70-99)
[2023-12-30 23:14] VITALS: BP 163/79
[2023-12-30] MEDS: KCL ELIXIR 40 MEQ PO (23:23)
[2023-12-30] MEDS: MELATONIN 20 MG PO (23:24)
[2023-12-30] MEDS: ATIVAN 0.5 MG PO (23:24)
[2023-12-31] VITALS (8 sets, daily range): BP systolic 120–152; BP diastolic 68–82; PULSE 68–76; O2SAT 96; BMI 36.9
[2023-12-31 00:21] LABS: Osmolality Urine 389 mOsm/kg (300-900)
[2023-12-31] MEDS: TYLENOL 650 MG PO ×3 (02:58→15:16)
[2023-12-31 06:07] LABS: Hematocrit 37.8 % (39.0-52.0); Hemoglobin 13.8 g/dL (13.0-18.0); Mean Corp Hgb Conc. 36.5 g/dL (33.0-37.0); Mean Corpuscular Hgb 33.8 pg (27.0-31.0); Mean Corpuscular Volume 92.6 fL (80.0-94.0); Mean Platelet Volume 9.8 fL (7.4-10.4); Platelet Count 261 10^3/uL (130-400); Red Blood Cell Count 4.08 10^6/uL (4.70-6.10); Red Cell Dist. Width 12.5 % (11.5-14.5); White Blood Cell Count 7.9 10^3/uL (4.8-10.8)
--- NOTE | 2023-12-31 06:28 | PTCARENOTE ---
Patient arrived on unit @2240 via stretcher from ED, ambulate to bed with single point cane. Patient AAOx3, denies pain or discomfort, med rec competed, skin assessment completed, oriented to unit, call vargas within reach.
[2023-12-31 06:29] LABS: Blood Urea Nitrogen 9 mg/dl (9-20); Calcium 9.3 mg/dl (8.4-10.2); Carbon Dioxide 20 mmol/L (22-30); Chloride 98 mmol/L (98-107); Estimated Creatinine Clearance > 125 ml/min; Glucose 88 mg/dl (70-99); Potassium 3.8 mmol/L (3.5-5.1); Sodium 129 mmol/L (135-145); eGFR > 60.00
--- NOTE | 2023-12-31 06:40 | CON.GI ---
Addendum entered and electronically signed by Radames Correa MD 12/31/23 14:22:
Patient seen and examined, agree with nurse practitioner note. Patient presents with weakness and shortness of breath, found to have significant hyponatremia. We consulted for new symptom over the past few weeks which he describes as a catch in
his throat. This is not related to eating, and feels that he has to cough at times to clear secretions. He has no significant dysphagia or odynophagia, regurgitation. He had laryngoscopy which was unremarkable. He does note increasing shortness
of breath and again fatigue over the past few weeks. He did have an endoscopy in 2020 which was normal. He also has intermittent rectal bleeding which is a chronic issue and not new, last colonoscopy in 2021 with hemorrhoids and ulceration of the
anus with inflammation. On exam he has no obvious thrush, neck lymph nodes or mass. The remainder of his exam is unremarkable. Chest x-ray was unremarkable. At this point is unclear whether or not this symptom is GI related as he has no true
dysphagia or odynophagia symptoms. Could be possibly related to relative oropharyngeal dysphagia though this seems less likely. He has been seen by speech and cleared for regular food and thin liquids. Will check video swallow to further define,
though hold on endoscopy for now. Would be okay for anticoagulation resumption as we will not plan on EGD at this time.
Original Note:
Consultation
-
Date/Time Consultation Requested: 12/30/23 1935
Date/Time Consultation Performed: 12/31/23 0700
Requesting Provider: Delisa Garcia PA-C
Performing Provider: TEZ Orr, Stefano Correa MD
Reason for Consultation: rectal bleeding
Medical History
Chief Complaint / HPI
Chief Complaint: shortness of breath
History of Present Illness:
Pt is a 73yo with hx multiple med problems prior bowl resection as child, prostate CA with prior prostatectomy and radiation, COPD, CAD, PE on Eliquis, NIDDM on Mounjaro last 3 months with prior Ozempic use, GERD, prior c-diff, colon polyps,
melanoma with eye resection with admission with weakness and shortness of breath. On admission noted with na 126. Pt also reports odynophagia/dysphagia and rectal bleeding and asked to evaluate. Last sigmoidoscopy 2021 with perianal skin tags,
area of moderate inflammation and ulceration at anus with neg bx. Last full Colonoscopy: [facility] 2021 polyp TC, IH bx neg and EGD normal 2020.
In reviewing with patient he felt not well yesterday with increased shortness of breath. He relates some chronic resp issue managed by [facility] but then sent to [place] for evaluation. He was concerned at some point was using a Cpap machine
that eventually was recalled and may have done damage to lung with prior note PE. He currently is followed with [facility] for medical management of his symptoms. He began about 3 weeks ago with feeling of 'catch' in his throat that has
persisted. He denies specific odynophagia or dysphagia with eating but will get feeling of something stuck in throat without eating. He has had some wt loss of 20 + lbs with use of Ozempic then Mounjaro switch due to supply issue. He denies GERD
but currently takes Protonix before dinner and antiacid BID. No nausea/vomiting, and minimal abdominal pain at night. No issues with diarrhea/constipation but some intermittent bleeding. He also complains of 'brain fog' and unsure if related to
Na issues.
Past Medical History
Past Medical History: CAD, Cancer (prostate CA), COPD, GERD, HTN, Hypercholesterolemia, NIDDM, Psychiatric (depression/anxiety) and Other (Prostate cancer status post recent radiation, melanoma, pulmonary embolus previously on Eliquis, hypertension,
TIA, hemorrhoidectomy, trigeminal neuralgia, sleep apnea,c-diff, hyponatremaia rectal bleeding , pelvic abscess with drainage, TA polyps)
Past Surgical History: Orthopedic (b/l knee surgery, shoulder surgery, cervical fusion, finger surgery, ), Urological (prostatectomy) and Other (Hemorrhoidectomy, bowel resection as child, eye surgery for melanoma, cataract surgery)
Social History
Tobacco: Non-Smoker
Alcohol: None
Drug: None
Living: Alone
Employment: Retired
Family History
Family History: Other (no family hx GI malignancies )
Allergies / Home Medications
Allergy/AdvReac Type Severity Reaction Status Date / Time
butorphanol Allergy Pharmacy Verified 12/30/23 16:48
to Review
onabotulinumtoxinA Allergy FACIAL PAIN Verified 12/30/23 16:48
[From Botox]
�Medication �Instructions �Recorded
Saccharomyces boulardii 250 mg 250 mg PO DAILY Supplement 02/16/22
capsule (Florastor)
cholecalciferol (vitamin D3) 25 25 mcg PO DAILY Supplement 02/16/22
mcg (1,000 unit) tablet (Vitamin
D3)
glimepiride 4 mg tablet 4 mg PO BID Diabetes 02/16/22
lorazepam 0.5 mg tablet 0.5 mg PO TID 02/16/22
calcium citrate 200 mg (950 mg) 200 mg PO DAILY Supplement 03/27/22
tablet
oxcarbazepine 600 mg tablet 600 mg PO BID Seizures 03/27/22
pantoprazole 40 mg tablet,delayed 40 mg PO QPM GERD 03/27/22
release
apixaban 5 mg tablet (Eliquis) 5 mg PO BID 30 days #60 tabs 04/11/22
albuterol sulfate 90 mcg/actuation 2 puff inhalation R Q4HPRN PRN 01/29/23
aerosol inhaler sob/wheezing
amlodipine 5 mg tablet 5 mg PO DAILY Blood Pressure 01/29/23
cyclosporine 0.05 % eye drops in a 1 drp BOTH EYES BID Eye Condition 01/29/23
dropperette
furosemide 20 mg tablet (Lasix) 20 mg PO DAILY #30 tabs 02/01/23
rosuvastatin 20 mg tablet (Crestor) 20 mg PO DAILY #30 tabs 02/01/23
carvedilol 12.5 mg tablet 12.5 mg PO BID 06/19/23
gabapentin 300 mg capsule 300 mg PO BID 06/19/23
hydralazine 25 mg tablet 25 mg PO BID 06/19/23
melatonin 10 mg tablet 20 mg PO HS 06/19/23
metformin 500 mg tablet 500 mg PO BID Diabetes 06/19/23
psyllium 1 tbsp PO DAILY 06/19/23
tadalafil 5 mg tablet 5 mg PO DAILY 06/19/23
therapeutic multivitamin 1 tab PO DAILY 06/19/23
tirzepatide 5 mg/0.5 mL 10 mg SC FR 06/19/23
subcutaneous pen injector
(Mounjaro)
cetirizine 10 mg tablet (Zyrtec) 10 mg PO DAILY 12/30/23
escitalopram oxalate 10 mg tablet 10 mg PO DAILY 12/30/23
fluticasone fur. 100 mcg-umeclid 1 inh inhalation DAILY 12/30/23
62.5 mcg-vilant 25 mcg
inhalat.powder (Trelegy Ellipta)
Review of Systems
-
History Source: Patient
Constitutional: Reports Weight Loss and Fatigue
EENT: Reports Other (dysphagia, odynophagia )
Respiratory: Reports Trouble Breathing
Abdomen/GI: Reports Bloody Stools
: Reports No Symptoms
Musculoskeletal: Reports No Symptoms
Neurological: Reports Weakness
Endocrine: Reports No Symptoms
Hematologic/Lymphatic: Reports Bleeding
Vital Signs
Temp Pulse Resp BP Pulse Ox
98.3 F 72 20 152/82 98
12/31/23 03:00 12/31/23 03:00 12/31/23 03:00 12/31/23 03:00 12/31/23 03:00
Physical Exam
Exam
General: Well Developed, Well Nourished and No Apparent Distress
HEENT: Normocephalic, Anicteric and Other (no thrush in mouth )
Respiratory: Other (slight dyspnea at times )
Cardiac: Regular Rhythm
GI: Soft, Non Tender and Non Distended
Rectal: Other (pt agreeable to exam no masses or lesions, no blood or stool noted )
Musculoskeletal: No Clubbing and No Cyanosis
Skin: Warm and Dry
Neuro: Awake, Alert and Oriented
Psych: Calm
Results
WBC 7.9 10^3/uL (4.8-10.8) 12/31/23 05:44
Hgb 13.8 g/dL (13.0-18.0) 12/31/23 05:44
Hct 37.8 % (39.0-52.0) L 12/31/23 05:44
MCV 92.6 fL (80.0-94.0) 12/31/23 05:44
Plt Count 261 10^3/uL (130-400) 12/31/23 05:44
Absolute Neuts (auto) 4.8 10^3/uL (1.4-6.5) 12/30/23 16:54
Sodium 129 mmol/L (135-145) L 12/31/23 05:44
Potassium 3.8 mmol/L (3.5-5.1) 12/31/23 05:44
Chloride 98 mmol/L (98-107) 12/31/23 05:44
Carbon Dioxide 20 mmol/L (22-30) L 12/31/23 05:44
BUN 9 mg/dl (9-20) 12/31/23 05:44
Creatinine 0.6 mg/dL (0.7-1.3) L 12/31/23 05:44
Calcium 9.3 mg/dl (8.4-10.2) 12/31/23 05:44
Total Bilirubin 0.7 mg/dl (0.2-1.3) 12/30/23 16:54
AST 20 U/L (17-59) 12/30/23 16:54
ALT 22 U/L (0-50) 12/30/23 16:54
Alkaline Phosphatase 38 U/L (38-126) 12/30/23 16:54
Diagnostic Image Results:
6/24/24 CXR
IMPRESSION:
No acute cardiopulmonary process.
Prior GI Procedures:
EGD: [facility] 2020 - Normal esophagus.
- Z-line regular, 45 cm from the incisors.
- Normal stomach.
- Normal duodenal bulb and second portion of the
duodenum.
Colonoscopy: 2021 polyp TC, IH bx neg
sigmoidoscopy - 2021 with perianal skin tags, area of moderate inflammation and ulceration at anus
Assessment / Plan
-
Pt is a 73yo with hx multiple med problems prior bowl resection as child, prostate CA with prior prostatectomy and radiation, COPD, CAD, PE on Eliquis, NIDDM, GERD, prior c-diff, colon polyps, melanoma with eye resection with admission with weakness
and shortness of breath. On admission noted with na 126. Pt also reports odynophagia/dysphagia and feeling of 'catch' in throat and rectal bleeding and asked to evaluate. Last sigmoidoscopy 2021 with perianal skin tags, area of moderate
inflammation and ulceration at anus with neg bx. Last full Colonoscopy: 2021 polyp TC, IH bx neg and EGD normal 2020.
-rectal bleeding
-odynophagia/dysphagia
-shortness of breath
-hyponatremia
-PE on Eliquis
-wt loss with recent change from Ozempic to Mounjaro
other medical problems:
-prostate CA with prior prostatectomy with prior radiation
-COPD
-CAD
-NIDDM
-GERD
-hx c-diff
-colon polyp
-melanoma of eye with resection
PLAN:
Etiology of odynophagia/dysphagia with some shortness of breath related to underlying chronic lung issues vs ant, newly started Moujaro (though no specific dysphagia reported in side effect) vs other
will review with Dr. Correa for EGD vs esophagram as some underlying resp issue with follow at [facility]
etiology of bleeding related to radiation proctitis, hemorrhoids vs other-- chronic issues continue to monitor stools during admission if increased bleeding consider flex to eval for APC treatment with hx ulceration noted with prior flex
cont to treat hyponatremia Na 129 today
cont ADA diet
Eliquis current hold-- will review plan with Dr. Correa then decide on resuming vs need for heparin bridge at pt report hx PE while off therapy
-
-
Thank you for consultation and allowing me to participate in the patient's care. Please call the [facility] [employer] [facility] GI physician during the after hours with any questions or concerns.
[2023-12-31 07:24] LABS: Glucose - Point of Care 105 mg/dl (70-99)
[2023-12-31] MEDS: DUONEB 3 ML INH ×3 (07:31→19:30)
[2023-12-31] MEDS: PULMICORT 0.5 MG INH ×2 (07:31→19:30)
[2023-12-31] MEDS: DUONEB INH (07:51)
[2023-12-31] MEDS: NOVOLOG FLEXPEN-LOW RESISTANCE SC (07:54)
[2023-12-31] MEDS: NEURONTIN 300 MG PO ×2 (07:56→20:52)
[2023-12-31] MEDS: PROTONIX 40 MG PO ×2 (07:56→20:52)
[2023-12-31] MEDS: ATIVAN 0.5 MG PO ×3 (07:57→22:29)
[2023-12-31] MEDS: GLUCOPHAGE 500 MG PO ×2 (07:57→17:05)
[2023-12-31] MEDS: FLORASTOR 250 MG PO (07:57)
[2023-12-31] MEDS: NORVASC 5 MG PO (07:57)
[2023-12-31] MEDS: CRESTOR 20 MG PO (07:57)
[2023-12-31] MEDS: APRESOLINE 25 MG PO ×2 (07:57→20:52)
[2023-12-31] MEDS: COREG 12.5 MG PO ×2 (07:57→20:52)
[2023-12-31] MEDS: TRILEPTAL 600 MG PO ×2 (07:57→20:53)
[2023-12-31] MEDS: AMARYL 4 MG PO ×2 (07:57→15:14)
[2023-12-31] MEDS: LEXAPRO 10 MG PO (08:09)
[2023-12-31 09:30] LABS: Glycohemoglobin (HgbA1c) 5.5 % (4.0-5.6)
[2023-12-31 11:43] LABS: Glucose - Point of Care 162 mg/dl (70-99)
[2023-12-31] MEDS: RESTASIS 0.05% OPHTHALMIC EMULSION 1 DROPS BOTH EYES ×2 (12:05→20:52)
[2023-12-31] MEDS: NOVOLOG FLEXPEN-LOW RESISTANCE 1 UNITS SC ×2 (12:07→17:05)
--- NOTE | 2023-12-31 12:19 | W.PN.HOSP.TC ---
Today's Communication/Plan
-
Holding Eliquis pending GI input
c/w Breathing treatments
Home O2 upon dc
c/w fluid restriction.
Assessment / Plan
Assessment / Plan
Physical Exam
General: Comfortable and Conversant
HEENT: Anicteric and Other (Mucous membrane appear slightly dry)
Respiratory: Clear. No Wheezes
Cardiac: S1/S2 and Regular Rhythm
GI: Soft and Non Tender
Musculoskeletal: No Clubbing, No Cyanosis and No Edema
Skin: Warm and Dry
Neuro: Awake, Alert, Oriented and Nonfocal/grossly intact
Psych: Calm
# Hx of chronic sob
He visit ER in November 2023 with same issue. Pro-BNP and troponin were normal.
No fever
No worsening cough
No leukocytosis
Chest x ray no active disease
Known PE and compliant with Eliquis treatment.
He reports hx of ANNY and using his C pap machine.
He reports COPD but no hx of smoking, on Trelegy at home
c/w DuoNeb & Pulmicort for now.
Patient follows with [facility] [facility]. Local pulmonary group advised him to follow downtown since he was not feeling better.
Eventual Home O2 evaluation.
# Dysphagia/Odynophagia
-Consult GI
-Increase Protonix to BID
Appreciate GI input
#Rectal Bleeding, intermittent episodes of bright red blood per rectum
No drop in HGB
-Consult GI
-Hold Eliquis
Acute on Chronic Hyponatremia.
Admission sodium 126
- Patient had low sodium before starting Lexapro ( was started in 02/2023)
-Serum osmolality 259. Urine osmolality 389, urine sodium 63. Serum consistent with SIADH component
-Hold Lasix
-Continue fluid restriction
-Appreciate nephrology input
Essential Hypertension
-Continue amlodipine and carvedilol
Hyperlipidemia
-Continue Crestor
Diabetes Mellitus, Type II
-Continue metformin and glipizide
-Patient maintained on Mounjaro as outpatient
-Monitor sugars and continue coverage insulin
Trigeminal Neuralgia
-Continue gabapentin and oxcarbazepine
Obstructive Sleep Apnea
-Continue CPAP
Hx Pulmonary Embolism
-Eliquis on hold due to reports of bright red blood per rectum
Code Status: Full Code
Total time spent to see the patient on the floor, examine the patient, review data and lab results, discuss treatment plan with patient, nursing staff around 55 minutes
Anticipated Discharge: 24 - 48 hours
Subjective/Interval History
-
Date of Service: December 31, 2023
He reports chronic sob
No chest pain
No fevers
Objective Data
-
Labs:
Laboratory Results
12/31/23
05:44
WBC 7.9
Hgb 13.8
Hct 37.8 L
Plt Count 261
Sodium 129 L
Potassium 3.8
Chloride 98
Carbon Dioxide 20 L
BUN 9
Creatinine 0.6 L
Glucose 88
Calcium 9.3
Vital Signs:
Vital Signs
Temp Pulse Resp BP Pulse Ox
98 F 73 14 144/74 95
12/31/23 11:12 12/31/23 11:12 12/31/23 11:12 12/31/23 11:12 12/31/23 11:12
--- NOTE | 2023-12-31 12:29 | PTOTSP ---
Dysphagia Evaluation
Patient with a history of mild-moderate pharyngeal dysphagia as well as concerns for esophageal dysphagia based on video swallow study 10/12/2022. Patient now reporting globus sensation (in absence of PO) and worsened feeling of solid stasis on right
side of throat. GI consulted this admission to further assess esophagus.
Patient without signs of aspiration complications (chest x-ray 12/30/2023 w/o PNA). Continue diet with strategies below. If GI work up unrevealing, consider repeat video swallow study as appropriate to r/o worsened pharyngeal dysphagia.
Recommend:
1. Regular (pick soft/moist foods), Thin Liquids
2. Upright to 90 degrees
3. Strategies: small single sips by cup with chin tucked, small single bites of food which has been cut well, avoid straws, avoid continuous drinking, intersperse liquids, remain upright for 30 minutes after PO intake as a reflux precaution
4. Medications - as best tolerated; crush large pills if medically cleared to do so
5. Will follow to determine if further objective assessment warranted.
--- NOTE | 2023-12-31 12:29 | CM ---
Met with pt at bedside
Pt lives alone in a 2 story home
Describes self as independent - drives, does own shopping, laundry, meal prep
DME - CPAP, nebulizer, cane
SNF - denies past hx
HH - has had in past, unable to recall agency
Has ride at d/c
PCP - Dr Rigoberto Conway
Pharm - [facility]
CM will follow for d/c needs
Plan - anticipate home no needs vs with HH
--- NOTE | 2023-12-31 13:52 | W.CON.NEPH ---
Consultation
-
Date/Time Consultation Requested: December 31, 2023 10 AM
Date/Time Consultation Performed: December 31, 2023 1 PM
Requesting Provider: Dr. Herrera
Performing Provider: Dr. Sin
Reason for Consultation: Hyponatremia
Medical History
-
Chief Complaint: Shortness of breath
History of Present Illness:
This is a 73-year-old gentleman who has COPD though not from smoking on chronic medications, hypertension on a multidrug regimen as well as diabetes on oral medications. He does have trigeminal neuralgia treated with oxcarbazepine without new
issues. He seems to also have chronic hyponatremia running around 130 on average. He does take Lasix 20 mg daily but is on no why he is on it. He does not believe that it is for his hyponatremia. He started Lexapro 6 months ago at 5 mg for some
anxiety based on his shortness of breath. On follow-up with his primary last week it was recommended that he increase his Lexapro to 10 mg daily. He then developed weakness and shortness of breath and came to the emergency room where his sodium
was noted to be 126. We are asked to assist with management of his hyponatremia. He does not drink more than 40 ounces per day by his report.
Past Medical History
Non-Obstructing Coronary Artery Disease
COPD
Chronic hyponatremia
Essential Hypertension
Hyperlipidemia
Diabetes Mellitus, Type II
Pulmonary Embolism
Trigeminal Neuralgia
Obstructive Sleep Apnea
GERD
Prostate Cancer
Right Eye Melanoma
Prostatectomy
Hernia Repair
[facility] for Melanoma Removal
Cervical Spine Fusion
Bilateral Knee Surgeries
Right Shoulder Surgery
Social History
Tobacco: Non-Smoker
Alcohol: None
Family History
Family History: Not Pertinent
Allergies / Home Medications
Allergy/AdvReac Type Severity Reaction Status Date / Time
butorphanol Allergy Pharmacy Verified 12/30/23 16:48
to Review
onabotulinumtoxinA Allergy FACIAL PAIN Verified 12/30/23 16:48
[From Botox]
�Medication �Instructions �Recorded �Confirmed �Type
Saccharomyces boulardii 250 mg 250 mg PO DAILY Supplement 02/16/22 12/30/23 History
capsule (Florastor)
cholecalciferol (vitamin D3) 25 25 mcg PO DAILY Supplement 02/16/22 12/30/23 History
mcg (1,000 unit) tablet (Vitamin
D3)
glimepiride 4 mg tablet 4 mg PO BID Diabetes 02/16/22 12/30/23 History
lorazepam 0.5 mg tablet 0.5 mg PO TID Mental Health/Anxiety 02/16/22 12/30/23 History
calcium citrate 200 mg (950 mg) 200 mg PO DAILY Supplement 03/27/22 12/30/23 History
tablet
oxcarbazepine 600 mg tablet 600 mg PO BID Trigeminal neuralgia 03/27/22 12/30/23 History
pantoprazole 40 mg tablet,delayed 40 mg PO QPM GERD 03/27/22 12/30/23 History
release
albuterol sulfate 90 mcg/actuation 2 puff inhalation R Q4HPRN PRN 01/29/23 12/30/23 History
aerosol inhaler sob/wheezing
amlodipine 5 mg tablet 5 mg PO DAILY Blood Pressure 01/29/23 12/30/23 History
cyclosporine 0.05 % eye drops in a 1 drp BOTH EYES BID Eye Condition 01/29/23 12/30/23 History
dropperette
rosuvastatin 20 mg tablet (Crestor) 20 mg PO DAILY #30 tabs 02/01/23 12/30/23 Rx
carvedilol 12.5 mg tablet 12.5 mg PO BID Heart 06/19/23 12/30/23 History
Disease/Condition
gabapentin 300 mg capsule 300 mg PO BID Neurological 06/19/23 12/30/23 History
Condition
hydralazine 25 mg tablet 25 mg PO BID Blood Pressure 06/19/23 12/30/23 History
melatonin 10 mg tablet 20 mg PO HS Sleep 06/19/23 12/30/23 History
metformin 500 mg tablet 500 mg PO BID Diabetes 06/19/23 12/30/23 History
psyllium 1 tbsp PO DAILY Supplement 06/19/23 12/30/23 History
tadalafil 5 mg tablet 5 mg PO DAILY Urinary Issue 06/19/23 12/30/23 History
therapeutic multivitamin 1 tab PO DAILY Supplement 06/19/23 12/30/23 History
tirzepatide 5 mg/0.5 mL 10 mg SC FR Diabetes 06/19/23 12/30/23 History
subcutaneous pen injector
(Mounjaro)
cetirizine 10 mg tablet (Zyrtec) 10 mg PO DAILY Allergies 12/30/23 12/30/23 History
escitalopram oxalate 10 mg tablet 10 mg PO DAILY Depression 12/30/23 12/30/23 History
fluticasone fur. 100 mcg-umeclid 1 inh inhalation DAILY 12/30/23 12/30/23 History
62.5 mcg-vilant 25 mcg Lung/Breathing Issues
inhalat.powder (Trelegy Ellipta)
apixaban 5 mg tablet (Eliquis) 5 mg PO BID Blood Clot 12/31/23 12/30/23 History
Prevention/Tx
furosemide 20 mg tablet (Lasix) 20 mg PO DAILY Fluid 12/31/23 12/30/23 History
Retention/Swelling
Review of Systems
-
Weakness, shortness of breath. No chest pain. Occasional rectal bleeding when constipated
All other systems: Negative unless noted
Physical Exam
Vital Signs
Vital Signs
Temp Pulse Resp BP Pulse Ox
98 F 68 16 144/74 97
12/31/23 11:12 12/31/23 12:50 12/31/23 12:50 12/31/23 11:12 12/31/23 12:50
Lab Results
WBC 7.9 10^3/uL (4.8-10.8) 12/31/23 05:44
RBC 4.08 10^6/uL (4.70-6.10) L 12/31/23 05:44
Hgb 13.8 g/dL (13.0-18.0) 12/31/23 05:44
Hct 37.8 % (39.0-52.0) L 12/31/23 05:44
Plt Count 261 10^3/uL (130-400) 12/31/23 05:44
Sodium 129 mmol/L (135-145) L 12/31/23 05:44
Potassium 3.8 mmol/L (3.5-5.1) 12/31/23 05:44
Chloride 98 mmol/L (98-107) 12/31/23 05:44
Carbon Dioxide 20 mmol/L (22-30) L 12/31/23 05:44
BUN 9 mg/dl (9-20) 12/31/23 05:44
Creatinine 0.6 mg/dL (0.7-1.3) L 12/31/23 05:44
eGFR > 60.00 12/31/23 05:44
Glucose 88 mg/dl (70-99) 12/31/23 05:44
Calcium 9.3 mg/dl (8.4-10.2) 12/31/23 05:44
Albumin 4.5 g/dl (3.5-5.0) 12/30/23 16:54
Physical Exam
Patient is awake alert oriented and in no distress. Mood and affect were pleasant, insight and judgment were good. Pupils are equal round and reactive to light, extraocular movements are intact, sclera were anicteric. Hearing was normal, ears and
nose are intact. Oropharynx was clear. Neck was supple with trachea midline and no thyromegaly. Heart was regular rate and rhythm without rubs. Lower extremities without edema. Lungs were clear to auscultation bilaterally and with normal
excursion. Abdomen was soft, nontender, with normal active bowel sounds, and no hepatosplenomegaly. Skin was without rash and with normal turgor.
Data Reviewed
-
Radiology: Image Personally Visualized and interpreted (Chest x-ray on 12/30/2023 by my reading shows no acute disease)
Medical Tests (Nuc Med, Echo etc): Image Personally Visualized and interpreted (EKG on 12/30/2023 by my reading shows normal sinus rhythm first-degree AV block left axis deviation anterior Q)
Labs: Labs Reviewed by me (WBC 7.9, hemoglobin 13.8, platelets 261, sodium 129, potassium 3.8, BUN 9, creatinine 0.6, urine osmolality 389, urine sodium 63)
Assessment/Plan
-
Assessment
COPD
Shortness of breath
Anxiety
Acute on chronic hyponatremia
Hypertension
Trigeminal neuralgia
Diabetes mellitus type 2
Intermittent rectal bleeding
Hyperlipidemia
GERD
Plan
He would appear to have excess ADH. There are many reasons for this. These include COPD, oxcarbazepine, trigeminal neuralgia, Lexapro. I doubt that the recent increase in Lexapro has worsened his situation though it is possible. Is also unlikely
that his sodium level has improved without intervention within 24 hours with simply holding Lexapro.
He may return to Lexapro at the 10 mg dose on discharge
[facility] trial
He should continue Lasix 20 mg daily
We may consider the addition of salt tablets if needed.
I would be happy to accept a sodium level of 130 for this gentleman
GI evaluation for rectal bleeding
[2023-12-31] MEDS: SAMSCA 15 MG PO (15:11)
[2023-12-31 16:25] LABS: Glucose - Point of Care 165 mg/dl (70-99)
[2023-12-31] MEDS: ELIQUIS 5 MG PO (20:52)
[2023-12-31 21:10] LABS: Glucose - Point of Care 104 mg/dl (70-99)
[2023-12-31] MEDS: MELATONIN 20 MG PO (22:29)
[2024-01-01 03:46] VITALS: BP 126/77
[2024-01-01 06:00] VITALS: BMI 35.8
[2024-01-01 06:14] LABS: Hematocrit 38.7 % (39.0-52.0); Hemoglobin 14.2 g/dL (13.0-18.0); Mean Corp Hgb Conc. 36.7 g/dL (33.0-37.0); Mean Corpuscular Hgb 34.1 pg (27.0-31.0); Mean Platelet Volume 9.9 fL (7.4-10.4); Platelet Count 281 10^3/uL (130-400); Red Blood Cell Count 4.16 10^6/uL (4.70-6.10); Red Cell Dist. Width 13.2 % (11.5-14.5); White Blood Cell Count 8.8 10^3/uL (4.8-10.8)
[2024-01-01 06:48] LABS: Blood Urea Nitrogen 13 mg/dl (9-20); Calcium 9.7 mg/dl (8.4-10.2); Carbon Dioxide 22 mmol/L (22-30); Chloride 103 mmol/L (98-107); Estimated Creatinine Clearance 107 ml/min; Glucose 110 mg/dl (70-99); Potassium 4.3 mmol/L (3.5-5.1); Sodium 136 mmol/L (135-145); eGFR > 60.00
--- NOTE | 2024-01-01 07:02 | W.PN.GI.CBS2 ---
Today's Communication / Plan
-
Please see assessment and plan for details.
Assessment / Plan
-
1. Questionable dysphagia: with overall vague symptoms, describes more as a 'catching 'sensation without true dysphagia or odynophagia. At this point will await modified barium swallow to assess oropharyngeal function. If this is normal hold on
any further GI workup for now. No plans for EGD at this point, okay to continue anticoagulation.
Subjective
Subjective
Date of Service: January 01, 2024
Patient feeling okay overnight no 'catching 'episodes. No abdominal pain, nausea or vomiting.
Objective
Data Reviewed
Laboratory Data:
Laboratory Results
01/01/24 05:49
01/01/24 05:49
Laboratory Results
Magnesium 1.7 mg/dl (1.6-2.3) 12/30/23 16:54
Total Bilirubin 0.7 mg/dl (0.2-1.3) 12/30/23 16:54
AST 20 U/L (17-59) 12/30/23 16:54
ALT 22 U/L (0-50) 12/30/23 16:54
Alkaline Phosphatase 38 U/L (38-126) 12/30/23 16:54
Vital Signs and I&O:
Vital Signs
Temp Pulse Resp BP Pulse Ox
97.8 F 73 20 126/77 98
01/01/24 03:46 01/01/24 03:46 01/01/24 03:46 01/01/24 03:46 01/01/24 03:46
I&O
12/31/23 01/01/24 01/02/24
06:59 06:59 06:59
Intake Total 1460 / 1460
Balance 1460 / 1460
Physical Exam
Physical Exam
General: NAD
Abdomen: normal bowel sounds, soft, no tenderness, no masses or bruits, no ascites
[2024-01-01] MEDS: TRILEPTAL 600 MG PO (07:31)
[2024-01-01] MEDS: RESTASIS 0.05% OPHTHALMIC EMULSION 1 DROPS BOTH EYES (07:31)
[2024-01-01] MEDS: CRESTOR 20 MG PO (07:31)
[2024-01-01] MEDS: FLORASTOR 250 MG PO (07:31)
[2024-01-01] MEDS: NEURONTIN 300 MG PO (07:31)
[2024-01-01] MEDS: LEXAPRO 10 MG PO (07:31)
[2024-01-01] MEDS: GLUCOPHAGE 500 MG PO (07:31)
[2024-01-01] MEDS: AMARYL 4 MG PO (07:31)
[2024-01-01] MEDS: ATIVAN 0.5 MG PO (07:32)
[2024-01-01] MEDS: COREG 12.5 MG PO (07:32)
[2024-01-01] MEDS: APRESOLINE 25 MG PO (07:32)
[2024-01-01] MEDS: PROTONIX 40 MG PO (07:32)
[2024-01-01] MEDS: NORVASC 5 MG PO (07:33)
[2024-01-01] MEDS: ELIQUIS 5 MG PO (07:33)
[2024-01-01 07:39] VITALS: BP 128/75
[2024-01-01] MEDS: DUONEB 3 ML INH (07:40)
[2024-01-01] MEDS: PULMICORT 0.5 MG INH (07:41)
[2024-01-01 07:51] LABS: Glucose - Point of Care 154 mg/dl (70-99)
[2024-01-01] MEDS: NOVOLOG FLEXPEN-LOW RESISTANCE 1 UNITS SC (07:53)
--- NOTE | 2024-01-01 10:28 | W.DCSUMMARY ---
Discharge Summary
Discharge Data
Date of Admission: 12/30/23
Date of Discharge: 01/01/24
-
Pending Results: No
Hospital Course
73 years old male who presented with swallowing difficulty and weakness. Patient was found to have hyponatremia. Patient had history of hyponatremia and sodium on admission was 126. Patient had chronic hyponatremia before the initiation of
Lexapro. 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 Multiple reasons for SIADH including underlying lung disease, oxcarbazepine, trigeminal neuralgia, Lexapro. Patient was put on fluid restriction and was given
1 dose of tolvaptan. Her sodium increased slowly to 136 upon discharge. Patient felt better with resolution of weakness. He did not have fever or chills. No leukocytosis.
Patient complaining of chronic shortness of breath. Oxygen level remained normal around 97 to 98% on exertion and ambulation. Chest radiography did not show active pulmonary disease. Patient was given nebulizer treatment. Patient was advised to
follow-up with primary learning disabilities resource teacher Dr. Montana Wong at [facility] for further recommendations. Patient reporting compliance to Eliquis treatment. He was advised to continue using CPAP machine for his obstructive sleep apnea. He was
advised to continue to follow healthy diet to lose weight.
Regarding swallowing difficulty. Patient was evaluated by software test developer. No indication for upper endoscopy. He was evaluated by speech and he had video swallow that did not show significant retention or aspiration. Patient was maintained on
regular diet and thin liquids. He did not have nausea or vomiting or abdominal pain.
Physical Exam
General: Comfortable and Conversant
HEENT: Anicteric and Other (Mucous membrane appear slightly dry)
Respiratory: Clear. No Wheezes
Cardiac: S1/S2 and Regular Rhythm
GI: Soft and Non Tender
Musculoskeletal: No Clubbing, No Cyanosis and No Edema
Skin: Warm and Dry
Neuro: Awake, Alert, Oriented and Nonfocal/grossly intact
Psych: Calm
Total discharge time spent to see the patient on the floor, examine the patient, review data and lab results, discuss discharge plan with patient, consultants, nursing staff around 65 minutes
Discharge Plan
-
Patient Disposition: Home (Routine Discharge)
Discharge Diagnosis/Procedures: Acute on chronic hyponatremia, continue fluid restriction and Lasix.
Swallowing difficulty. Video swallow did not show significant aspiration or retention of food.
Shortness of breath. Chest radiography did not show acute disease. No hypoxia on exertion.
You were given nebulizer treatment including Pulmicort and DuoNeb. A call was put out to your primary learning disabilities resource teacher Dr. Montana Wong
Diet: Regular and Restrict fluids to 64 oz
Referrals:
Rigoberto Conway MD [Family Provider] -
Montana Wong MD [Non-Admitting Privileges] - in one to two weeks
Prescriptions:
Continued
lorazepam 0.5 mg Tablet
0.5 mg PO TID
Patient Comments:
06/19/2023, patient filled this medication on 06/13/2023 for 30 tablets according to PDMP.
glimepiride 4 mg Tablet
4 mg PO BID
Saccharomyces boulardii [Florastor] 250 mg Capsule
250 mg PO DAILY
cholecalciferol (vitamin D3) [Vitamin D3] 25 mcg (1,000 unit) Tablet
25 mcg PO DAILY
oxcarbazepine 600 mg Tablet
600 mg PO BID
calcium citrate 200 mg (950 mg) Tablet
200 mg PO DAILY
pantoprazole 40 MG tablet,delayed release (DR/EC)
40 mg PO QPM
amlodipine 5 mg tablet
5 mg PO DAILY
albuterol sulfate 90 mcg/actuation HFA aerosol inhaler
2 puff INHALATION R Q4HPRN PRN (Reason: sob/wheezing)
cyclosporine 0.05 % dropperette
1 drp BOTH EYES BID
rosuvastatin [Crestor] 20 mg tablet
20 mg PO DAILY Qty: 30 0RF
carvedilol 12.5 mg Tablet
12.5 mg PO BID
hydralazine 25 mg Tablet
25 mg PO BID
therapeutic multivitamin Tablet
1 tab PO DAILY
psyllium Powder
1 tbsp PO DAILY
gabapentin 300 mg Capsule
300 mg PO BID
tadalafil 5 mg Tablet
5 mg PO DAILY
melatonin 10 mg Tablet
20 mg PO HS
Mounjaro 5 mg/0.5 mL Pen Injector
10 mg SC FR
metformin 500 MG tablet
500 mg PO BID
cetirizine [Zyrtec] 10 mg Tablet
10 mg PO DAILY
escitalopram oxalate 10 mg Tablet
10 mg PO DAILY
Trelegy Ellipta 100-62.5-25 mcg Blister With Device
1 inh INHALATION DAILY
furosemide [Lasix] 20 mg tablet
20 mg PO DAILY
Eliquis 5 mg tablet
5 mg PO BID
Discharge Orders:
Discharge Patient (As Directed); Ordered 01/01/24
Ordered By: Sima Quintero
Discharge Date and Time
Print Language: ALBANIAN
--- NOTE | 2024-01-01 11:05 | PTOTSP ---
Video Swallow Study
Summary: Patient presents with functional oral stage of swallowing and mild pharyngeal stage of swallowing. There was deep laryngeal penetration which partially cleared to upper laryngeal vestibule with thin and mildly thick liquids via
consecutive drinking. No aspiration occurred. There was at most mild diffuse residue with solids which decreased with a spontaneous secondary swallow. Esophageal sweep revealed retention and retrograde flow below PES with a liquid wash.
Recommend:
1. Regular, Thin Liquids
2. Strategies: upright to 90 degrees, small single sips, intersperse liquids, reflux precautions
3. Medications -as best tolerated; crush large pills if medically cleared to do so
4. No further dysphagia tx warranted. Consider further assessment of esophageal stage with GI as medically indiciated.
--- NOTE | 2024-01-01 11:18 | W.PN.NEPH.PH ---
Today's Communication / Plan
-
- sign off
Assessment/Plan
-
Assessment
COPD
Shortness of breath
Anxiety
Acute on chronic hyponatremia
Hypertension
Trigeminal neuralgia
Diabetes mellitus type 2
Intermittent rectal bleeding
Hyperlipidemia
GERD
Plan
He would appear to have excess ADH. There are many reasons for this. These include COPD, oxcarbazepine, trigeminal neuralgia, Lexapro. I doubt that the recent increase in Lexapro has worsened his situation though it is possible. Is also unlikely
that his sodium level has improved without intervention within 24 hours with simply holding Lexapro.
He may return to Lexapro at the 10 mg dose on discharge
Trialed samsca, Na up to 136
He should continue Lasix 20 mg daily
We may consider the addition of salt tablets if needed.
I would be happy to accept a sodium level of 130 for this gentleman
Nephrology to sign off. Patient to follow up with Dr. Sin after discharge
-
-
Date of Service: January 01, 2024
CC / HPI / ROS
-
Chief Complaint:
hyponatremia
History of Present Illness:
Na 126 -->136
s/p samsca
Review of Systems:
feeling well
Labs
-
Labs:
WBC 8.8 10^3/uL (4.8-10.8) 01/01/24 05:49
RBC 4.16 10^6/uL (4.70-6.10) L 01/01/24 05:49
Hgb 14.2 g/dL (13.0-18.0) 01/01/24 05:49
Hct 38.7 % (39.0-52.0) L 01/01/24 05:49
Plt Count 281 10^3/uL (130-400) 01/01/24 05:49
Sodium 136 mmol/L (135-145) 01/01/24 05:49
Potassium 4.3 mmol/L (3.5-5.1) 01/01/24 05:49
Chloride 103 mmol/L (98-107) 01/01/24 05:49
Carbon Dioxide 22 mmol/L (22-30) 01/01/24 05:49
BUN 13 mg/dl (9-20) 01/01/24 05:49
Creatinine 0.8 mg/dL (0.7-1.3) 01/01/24 05:49
eGFR > 60.00 01/01/24 05:49
Glucose 110 mg/dl (70-99) H 01/01/24 05:49
Calcium 9.7 mg/dl (8.4-10.2) 01/01/24 05:49
Albumin 4.5 g/dl (3.5-5.0) 12/30/23 16:54
Physical Exam
-
Vital Signs:
Vital Signs
Temp Pulse Resp BP Pulse Ox
98.1 F 61 18 128/75 97
01/01/24 07:39 01/01/24 07:45 01/01/24 07:45 01/01/24 07:39 01/01/24 07:45
Cardiovascular:: Regular rate and rhythm
Respiratory:: Bilateral: CTA
Lung Excursion:: Normal
Abdomen:: Nontender and Soft
Bowel Sounds:: Normal
Extremity Edema:: None: Bilateral:
Castle Catheter: No
--- NOTE | 2024-01-01 11:26 | CM ---
Case management following for d/c planning
Pt for d/c today
Has ride home
Discussed IMM
Plan - anticipate home no needs
[2024-01-01 11:43] VITALS: BP 127/71
== END 2024-01-01 13:30 | disposition home or self-care (01) | DRG 644 ==
LOC: 3 WEST ACU 22:06
PROVIDERS: Emergency Medicine; Physician Assistant Medical; ADMITTING PHYSICIAN Hospitalist; ATTENDING PHYSICIAN Internal Medicine; CONSULT PHYSICIAN Internal Medicine Gastroenterology; CONSULT PHYSICIAN Specialist; EMERGENCY PHYSICIAN Student in an Organized Health Care Education/Training Program; FAMILY PHYSICIAN Family Medicine
DX: E22.2 Syndrome of inappropriate secretion of antidiuretic hormone (principal); K62.5 Hemorrhage of anus and rectum; G47.33 Obstructive sleep apnea (adult) (pediatric); J44.9 Chronic obstructive pulmonary disease, unspecified; I10 Essential (primary) hypertension; E11.9 Type 2 diabetes mellitus without complications
CPT/HCPCS: 71046; 74230; 80048; 80053; 82962; 83036; 83735; 83930; 83935; 84300; 85025; 85027; 87070; 87811; 92610; 92611; 93005; 94640; 97162; 97166; 99285

== ENCOUNTER 2024-01-18 23:26 | Inpatient (IN) | payer OTHER, SELFPAY ==
[2024-01-18 17:48] VITALS: BMI 37.2
[2024-01-18 17:58] VITALS: BP 144/74
[2024-01-18 18:28] LABS: ALT (SGPT) 22 U/L (0-50); AST (SGOT) 23 U/L (17-59); Albumin 4.7 g/dl (3.5-5.0); Alkaline Phosphatase 39 U/L (38-126); Blood Urea Nitrogen 10 mg/dl (9-20); Calcium 9.1 mg/dl (8.4-10.2); Carbon Dioxide 22 mmol/L (22-30); Chloride 98 mmol/L (98-107); Glucose 126 mg/dl (70-99); Sodium 130 mmol/L (135-145); Total Bilirubin 0.6 mg/dl (0.2-1.3); Total Protein 6.9 g/dl (6.3-8.2); eGFR > 60.00
[2024-01-18 19:03] LABS: % Basophils 0.5 % (0-2); % Eosinophils 0.8 % (0-6); % Immature Granulocytes 0.3 % (0-0.5); % Lymphocytes 17.3 % (20.5-51.1); % Monocytes 9.7 % (1.7-9.3); % Neutrophils 71.4 % (42.2-75.2); Absolute Eosinophils 0.1 10^3/uL (0-0.7); Absolute Lymphocytes 1.1 10^3/uL (1.2-3.4); Absolute Monocytes 0.6 10^3/uL (0.1-0.6); Absolute Neutrophils 4.4 10^3/uL (1.4-6.5); Hematocrit 35.9 % (39.0-52.0); Mean Corp Hgb Conc. 36.2 g/dL (33.0-37.0); Mean Corpuscular Hgb 34.4 pg (27.0-31.0); Mean Platelet Volume 10.1 fL (7.4-10.4); Nucleated Red Blood Cells % 0 % (-); Platelet Count 262 10^3/uL (130-400); Red Blood Cell Count 3.78 10^6/uL (4.70-6.10); Red Cell Dist. Width 13.2 % (11.5-14.5); White Blood Cell Count 6.2 10^3/uL (4.8-10.8)
[2024-01-18 20:24] VITALS: BP 148/73
--- NOTE | 2024-01-18 20:43 | ED.GENMED ---
History of Present Illness
<Elizabeth Verdugo PA-C - Last Filed: 01/18/24 23:48>
General
Chief Complaint: Abnormal Lab Value
Source: patient
Exam Limitations: none
Time Seen by Provider: 01/18/24 19:05
Nursing documentation reviewed up to this point in time: agreed with
History of Present Illness
History of Present Illness:
73 Y/O M with h/o SIADH, htn, hld, dm, pe on eliquis
here with concerns for hyponatremia
he has had symptoms of headache, muscles aches, feeling off balance, fatigue
and he has had these symptoms with low sodium before and so when he started feeling this way 4 days ago he called dr. lo from nephrology and he sent pt for labs, which resulted today with na of 130
ddr. lo called in salt tabs and told him to double lasix which he did but he felt not well so he decided to come in
he was hospitalized last in december and sodium was as low as 126
he has not had any visoin changes, cp, abdomianl pain, vomiting, diarrhea, focal wekaness, falls
he felt his balance was off but did nto actually fall
he apparnetly has chronic headaches
Past History
<Elizabeth Verdugo PA-C - Last Filed: 01/18/24 23:48>
Past History
ED Past Medical History: Cancer (Prostate CA Melanoma, right eye resected), GERD, HTN, Hypercholesterolemia, NIDDM, Psychiatric (depression, Anxiety), Other ( Trigeminal neuralgia, Sleep apnea uses CPAP, PE, C-diff) and Other (Hyponatremia,
C-diff, TIA, Gastroenteritis, Rectal bleeding, left pelvic abscess requiring IR drainage at [facility] 05/12/[address], [facility] 05/12/20, Headache, Sleep apnea, PE, )
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
for removal of melanoma, right cataract removal, hemorrhoidectomy; epidurals for cervical spine disease; , Hernia repair. Twisted bowel at 4 years old)
Social History
Tobacco: Non-smoker
Alcohol: Occasional
Drug: None
Personal:
Living: alone
Employment: Disabled
Family History
Family History: Other (reviewed and noncontributory)
Review of Systems
<Elizabeth Verdugo PA-C - Last Filed: 01/18/24 23:48>
Review of Systems
Allergies reviewed?: Yes
All Other Systems: Not applicable
Phy Exam
<Elizabeth Verdugo PA-C - Last Filed: 01/18/24 23:48>
Physical Exam
Physical Exam:
GENERAL: Alert , in no apparent distress, strange affect, frequently squinting his eyes, says because they are dry
HEAD: NCAT
EYE: pupils equal and reactive, no nystagmus, no photophobia
NECK: Supple,full rom, nontender
ENT: o/p clr, mmm.
CARDIAC: Regular rate and rhythm . no edema
LUNGS: Clear breath sounds bilaterally, no acute respiratory distress, no wheezes/rales/rhonchi
ABDOMEN: Soft, without focal tenderness, no r/g, no cvat
NEUROLOGICAL: Alert and orientedx 4, cn intact, no facial asymmetry, 5/5 strength in UE/LE, sensation intact, romberg neg, ambulates without assistance, neg pronator drift
SKIN: Warm and dry, skin intact.
MUSCULOSKELETAL: wears compressio nstockings but no significant edema
nontender
normal strength
PSYCH: Normal and appropriate interaction.
Course
<Elizabeth Verdugo PA-C - Last Filed: 01/18/24 23:48>
Orders/Labs/Results
Orders:
Orders
01/18/24 18:09
CMP [Comprehensive Metabolic Panel] Urgent
Complete Blood Count/With Diff Urgent
Creatine Phosphokinase Urgent
Comment: ADDON
01/18/24 20:06
Add On- LAB Urgent
Tests Added?: cpk
01/18/24 20:09
Electrocardiogram (*1) Urgent
Reason for Study: Fatigue / Weakness
EKG- Treatment ONCE
01/18/24 20:10
CT Head W/o Iv Contrast Urgent
Comment:
Reason For Exam: headache
01/18/24 20:18
COVID-19 Antigen Urgent
Source: Nasal Swab
01/18/24 23:26
Admit/Transfer Patient As Directed
Co-Sign Provider:
Level of Care: Inpatient admission
Assign to:: Medical/Surgical
Physician / Group: Adam
Diagnosis: Hyponatremia
Reason for Hospitalization: Nephrology
Expected length of stay greater than two midnights?: Yes
ELOS- Estimated Length of Stay in days: 3
I certify the patient meets the requirements for IP care: Yes
01/18/24 23:35
Code Status As Directed
Resuscitation Status: Full Code
Abnormal Lab Results
01/18/24
18:09
RBC 3.78 L 10^6/uL
(4.70-6.10)
Hct 35.9 L %
(39.0-52.0)
MCV 95.0 H fL
(80.0-94.0)
MCH 34.4 H pg
(27.0-31.0)
Absolute Lymphs (auto) 1.1 L 10^3/uL
(1.2-3.4)
Lymphocytes % 17.3 L %
(20.5-51.1)
Monocytes % 9.7 H %
(1.7-9.3)
Sodium 130 L mmol/L
(135-145)
Creatinine 0.6 L mg/dL
(0.7-1.3)
Glucose 126 H mg/dl
(70-99)
01/18/24 18:09
01/18/24 18:09
Vital Signs
Initial and Last Documented VS:
Initial Vital Signs
Pulse Resp BP Pulse Ox
78 18 144/74 95
01/18/24 17:58 01/18/24 17:58 01/18/24 17:58 01/18/24 17:58
Last Documented Vital Signs
Pulse Resp BP Pulse Ox
72 19 159/90 94
01/18/24 21:45 01/18/24 20:20 01/18/24 21:00 01/18/24 21:45
<Sheri Isaac, DO - Last Filed: 01/18/24 23:05>
Orders/Labs/Results
Orders:
Orders
01/18/24 18:09
CMP [Comprehensive Metabolic Panel] Urgent
Complete Blood Count/With Diff Urgent
Creatine Phosphokinase Urgent
Comment: ADDON
01/18/24 20:06
Add On- LAB Urgent
Tests Added?: cpk
01/18/24 20:09
Electrocardiogram (*1) Urgent
Reason for Study: Fatigue / Weakness
EKG- Treatment ONCE
01/18/24 20:10
CT Head W/o Iv Contrast Urgent
Comment:
Reason For Exam: headache
01/18/24 20:18
COVID-19 Antigen Urgent
Source: Nasal Swab
01/18/24 23:26
Admit/Transfer Patient As Directed
Co-Sign Provider:
Level of Care: Inpatient admission
Assign to:: Medical/Surgical
Physician / Group: Adam
Diagnosis: Hyponatremia
Reason for Hospitalization: Nephrology
Expected length of stay greater than two midnights?: Yes
ELOS- Estimated Length of Stay in days: 3
I certify the patient meets the requirements for IP care: Yes
01/18/24 23:35
Code Status As Directed
Resuscitation Status: Full Code
Abnormal Lab Results
01/18/24
18:09
RBC 3.78 L 10^6/uL
(4.70-6.10)
Hct 35.9 L %
(39.0-52.0)
MCV 95.0 H fL
(80.0-94.0)
MCH 34.4 H pg
(27.0-31.0)
Absolute Lymphs (auto) 1.1 L 10^3/uL
(1.2-3.4)
Lymphocytes % 17.3 L %
(20.5-51.1)
Monocytes % 9.7 H %
(1.7-9.3)
Sodium 130 L mmol/L
(135-145)
Creatinine 0.6 L mg/dL
(0.7-1.3)
Glucose 126 H mg/dl
(70-99)
01/18/24 18:09
01/18/24 18:09
Vital Signs
Initial and Last Documented VS:
Initial Vital Signs
Pulse Resp BP Pulse Ox
78 18 144/74 95
01/18/24 17:58 01/18/24 17:58 01/18/24 17:58 01/18/24 17:58
Last Documented Vital Signs
Pulse Resp BP Pulse Ox
72 19 159/90 94
01/18/24 21:45 01/18/24 20:20 01/18/24 21:00 01/18/24 21:45
<Elizabeth Verdugo PA-C - Last Filed: 01/18/24 23:48>
MDM/Problems Addressed
Differential Diagnosis Includes:
hyponatremia, myalgias, rhabdo
MDM/Problems Addressed:
73 y/o M with h/o hypnatremia
here with compains that he feels are c/w previous hyponatremia episodes with fatigue, muscle aches, headaches, balance problems
his outpatient labs showed sodium of 130
he had instructions to start salt tabs and double lasix but pt wanted to be evaluated
here he has no focal weakness
stable vitals
is squinting a lot due to dry eyes, has strange affect
no focal neuro deficits
no significant edema
doesn't appear overly dry
na is 130
cpk normal
unclear reasons for patient symptoms
i even spke with dr lo whom is his weld engineer who agreed that his sodium at 130 shoould really be causing these symptoms
i overheard the patient telling his RN 'get your a out of here' and raising his voice at her and i went in to discuss code of conduct and pt then became verbally abusive; he was told he was medically screened and could be discahrged if he would
continue to act this way
ed attneding dr. isaac in withp patient as well
she felt that pt was also medically cleared, that symptoms were not of emergent concern and pt could be discharged
he refused the head ct and then the patient called dr. lo from nephrology himself via cell phone
ultimately teresita deleon recommended admission, observation, fluid restrictions, lasix and salt tabs.
irish dout to the hospitalist who initially felt that pt did not require hospitalization for stable sodium of 130.- ultimately, he spoke with dr. lo directly to review the admission.
<Elizabeth Verdugo PA-C - Last Filed: 01/18/24 23:48>
*Critical Care Note
Total Time (30-74mins, 75-104mins- exclusive of procedures): Not Applicable
ED Attending Note
<Elizabeth Verdugo PA-C - Last Filed: 01/18/24 23:48>
-
Portions of this chart may have been created with voice recognition software.� Occasional wrong word or��sound alike� substitutions may have occurred due to the inherent limitations of voice recognition software.
<Sherirene Isaac DO - Last Filed: 01/18/24 23:05>
ED Attending Note
Patient seen and examined by attending physician: Yes
I performed the substantive portion of visit, reviewed & personally made and approve the management plan that is documented in note by myself or JACOB.: Yes
I performed a history and physical exam of patient and discussed management with resident, I reviewed resident's note and agree with documented findings and plan of care.: Yes
ED Attending Note:
Patient seen and evaluated at bedside. Called to bedside after patient became agitated. Patient making inappropriate comments to nursing staff and to JACOB. Attempted to diffuse situation, however patient remains agitated. Patient reports that he
is primarily concerned about his sodium which she feels is being ignored. Patient has history of SIADH, hypertension, hyperlipidemia, diabetes. He is followed by nephrology, had outpatient laboratory testing, and was told that his sodium was 130.
He was told to increase his Lasix and take a salt pill which she has been doing. He presents to the hospital because he has been having generalized muscle aches and feels off balance which tributes to his sodium. Patient has had the symptoms in
the past. Vital signs are normal.
Patient resting comfortably in examination room. No increased work of breathing, heart rate regular. Patient moving all extremities equally. Patient mentating normally. Laboratory analysis reviewed, sodium appears to be near baseline. Sodium is
130, without indication for admission. No clinical signs of dehydration. JACOB did discuss care with nephrology. Feel patient can appropriately be managed outpatient. Initial plan for CT brain imaging given report of patient feeling off balance,
however patient does not want to proceed. Patient continues to be agitated, verbally aggressive to staff despite multiple de-escalation attempts.
22:45 -patient called the weld engineer directly. Continues to express concern over his sodium. Per nephrology, now recommending observation admission.
Discharge Plan
Departure
Patient Disposition: Admit
Date of Disposition: 01/18/24
Time of Disposition: 22:21
Admit to: Telemetry
Presentation/result/management discussed w/ accepting MD/DO: Hospitalist
Condition: Fair
Covid-19: Not Applicable
Discharge Problem:
Chronic hyponatremia, Weakness
Prescriptions:
No Action
lorazepam 0.5 mg Tablet
0.5 mg PO TID
Patient Comments:
06/19/2023, patient filled this medication on 06/13/2023 for 30 tablets according to PDMP.
glimepiride 4 mg Tablet
4 mg PO BID
Saccharomyces boulardii [Florastor] 250 mg Capsule
250 mg PO DAILY
cholecalciferol (vitamin D3) [Vitamin D3] 25 mcg (1,000 unit) Tablet
25 mcg PO DAILY
oxcarbazepine 600 mg Tablet
600 mg PO BID
calcium citrate 200 mg (950 mg) Tablet
200 mg PO DAILY
pantoprazole 40 MG tablet,delayed release (DR/EC)
40 mg PO QPM
amlodipine 5 mg tablet
5 mg PO DAILY
albuterol sulfate 90 mcg/actuation HFA aerosol inhaler
2 puff INHALATION R Q4HPRN PRN (Reason: sob/wheezing)
cyclosporine 0.05 % dropperette
1 drp BOTH EYES BID
rosuvastatin [Crestor] 20 mg tablet
20 mg PO DAILY Qty: 30 0RF
carvedilol 12.5 mg Tablet
12.5 mg PO BID
hydralazine 25 mg Tablet
25 mg PO BID
therapeutic multivitamin Tablet
1 tab PO DAILY
psyllium Powder
1 tbsp PO DAILY
gabapentin 300 mg Capsule
300 mg PO BID
tadalafil 5 mg Tablet
5 mg PO DAILY
melatonin 10 mg Tablet
20 mg PO HS
Mounjaro 5 mg/0.5 mL Pen Injector
10 mg SC FR
metformin 500 MG tablet
500 mg PO BID
cetirizine [Zyrtec] 10 mg Tablet
10 mg PO DAILY
escitalopram oxalate 10 mg Tablet
10 mg PO DAILY
Trelegy Ellipta 100-62.5-25 mcg Blister With Device
1 inh INHALATION DAILY
furosemide [Lasix] 20 mg tablet
20 mg PO DAILY
Eliquis 5 mg tablet
5 mg PO BID
sodium chloride 1,000 mg Tablet,Soluble
1,000 mg PO DAILY
Referrals:
Rigoberto Conway MD [Family Provider] -
Interventions
Interventions:
*Risk Screen - Suicide Last Done: 01/18/24 17:58
*General Assessment Last Done: 01/18/24 17:58
*Neglect/Abuse Screening Last Done: 01/18/24 17:58
ED- Fall Risk Assessment Last Done: 01/18/24 19:45
*ED COVID-19 Vaccine History Last Done: 01/18/24 17:58
Discharge Date and Time
Print Language: BAHAMIAN
[2024-01-18 20:56] LABS: COVID-19 Antigen Negative (Negative)
[2024-01-18 20:58] LABS: Creatine Phosphokinase 73 U/L (55-170)
[2024-01-18 21:00] VITALS: BP 159/90
[2024-01-18 22:00] VITALS: BP 168/72
[2024-01-18 23:00] VITALS: BP 148/82
--- NOTE | 2024-01-18 23:41 | HPS.HSE ---
Addendum entered and electronically signed by Ge Medina MD 01/19/24 00:11:
Patient seen and examined
Discussed with physician funeral director's assistant
Agree with assessment and plan
Impression:
Presentation with imbalance
Acute on chronic hyponatremia
Other conditions:
Type 2 diabetes
Obesity
Dyslipidemia
Essential hypertension
Trigeminal neuralgia.
Anxiety/depression.
Obstructive sleep apnea on CPAP
History of pulmonary embolism on anticoagulation with Eliquis.
Plan:
Chronic hyponatremia likely multifactorial.
Sodium level of 130. Patient with mild imbalance, although with no focal neurologic findings with preserved cognition.
Declined evaluation with CT scan of the head while in ED.
Not hyperglycemic.
Discussed with nephrology.
Plan is to continue free water restriction, salt tabs. Increase Lasix to 40 mg a day. Follow BMP.
Type 2 diabetes
Update hemoglobin A1c.
Continue preadmission regimen with metformin and glipizide
Patient reports being on Mounjaro
History of pulmonary embolism.
Continue anticoagulation with Eliquis.
Physical therapy assessment for imbalance.
Original Note:
Family Physician
-
Family Physician: Rigoberto Conway
Chief Complaint
-
Weakness, 'Imbalance'
History of Present Illness
Patient is a 73-year-old male past medical history of SIADH with chronic hyponatremia, CAD, COPD, DM, PE, trigeminal neuralgia, and depression who presents with weakness and 'imbalance'. Patient reports he started with weakness and fatigue several
days ago. He reports that symptoms were similar to when he was hospitalized in December for hyponatremia. He contacted his electrical maintenance supervisor who obtained outpatient blood work which revealed a sodium level of 130. Symptoms persisted to the today, and he
contacted his electrical maintenance supervisor again instructed him to take double dose of Lasix and started on sodium tablets. Patient notes when he went to the pharmacy today to fruit picker the sodium tablets he had 2 episodes of 'imbalance' where he had to hold onto
the counter to steady himself. He did take the double dose of Lasix and the sodium tablet, but continued with symptoms and therefore presented to the emergency department for evaluation. Patient reports he has been compliant with his fluid
restriction. He notes he completed a course of Keflex today for a toe infection. He denies nausea, vomiting, diarrhea. He denies fever, sweats or chills.
Medical History
Past Medical History
Past Medical History: Reports Other
Additional Past Medical History:
Non-Obstructing Coronary Artery Disease
COPD
Essential Hypertension
Hyperlipidemia
Diabetes Mellitus, Type II
Pulmonary Embolism
Trigeminal Neuralgia
Obstructive Sleep Apnea
GERD
Prostate Cancer
Right Eye Melanoma
Past Surgical History: Reports Other
Additional Past Surgical History:
Prostatectomy
Hernia Repair
[facility] for Melanoma Removal
Cervical Spine Fusion
Bilateral Knee Surgeries
Right Shoulder Surgery
Social History
Tobacco: Non-smoker
Alcohol: None
Personal:
Family History
Family History: Not pertinent
Allergies / Home Medications
Allergies reflects when Allergies were last updated in [facility].
Home Medications with original date entered in [facility]
Allergy/Medication List:
Allergies
Allergy/AdvReac Type Severity Reaction Status Date / Time
butorphanol Allergy Pharmacy Verified 01/18/24 18:00
to Review
onabotulinumtoxinA Allergy FACIAL PAIN Verified 01/18/24 18:00
[From Botox]
Home Medications
Saccharomyces boulardii 250 mg capsule (Florastor) 250 mg PO DAILY Supplement 02/16/22
cholecalciferol (vitamin D3) 25 mcg (1,000 unit) tablet (Vitamin D3) 25 mcg PO DAILY Supplement 02/16/22
glimepiride 4 mg tablet 4 mg PO BID Diabetes 02/16/22
lorazepam 0.5 mg tablet 0.5 mg PO TID Mental Health/Anxiety 02/16/22
calcium citrate 200 mg (950 mg) tablet 200 mg PO DAILY Supplement 03/27/22
oxcarbazepine 600 mg tablet 600 mg PO BID Trigeminal neuralgia 03/27/22
pantoprazole 40 mg tablet,delayed release 40 mg PO QPM GERD 03/27/22
albuterol sulfate 90 mcg/actuation aerosol inhaler 2 puff inhalation R Q4HPRN PRN sob/wheezing 01/29/23
amlodipine 5 mg tablet 5 mg PO DAILY Blood Pressure 01/29/23
cyclosporine 0.05 % eye drops in a dropperette 1 drp BOTH EYES BID Eye Condition 01/29/23
rosuvastatin 20 mg tablet (Crestor) 20 mg PO DAILY #30 tabs 02/01/23
carvedilol 12.5 mg tablet 12.5 mg PO BID Heart Disease/Condition 06/19/23
gabapentin 300 mg capsule 300 mg PO BID Neurological Condition 06/19/23
hydralazine 25 mg tablet 25 mg PO BID Blood Pressure 06/19/23
melatonin 10 mg tablet 20 mg PO HS Sleep 06/19/23
metformin 500 mg tablet 500 mg PO BID Diabetes 06/19/23
psyllium 1 tbsp PO DAILY Supplement 06/19/23
tadalafil 5 mg tablet 5 mg PO DAILY Urinary Issue 06/19/23
therapeutic multivitamin 1 tab PO DAILY Supplement 06/19/23
tirzepatide 5 mg/0.5 mL subcutaneous pen injector (Mounjaro) 10 mg SC FR Diabetes 06/19/23
cetirizine 10 mg tablet (Zyrtec) 10 mg PO DAILY Allergies 12/30/23
escitalopram oxalate 10 mg tablet 10 mg PO DAILY Depression 12/30/23
fluticasone fur. 100 mcg-umeclid 62.5 mcg-vilant 25 mcg inhalat.powder (Trelegy Ellipta) 1 inh inhalation DAILY Lung/Breathing Issues 12/30/23
apixaban 5 mg tablet (Eliquis) 5 mg PO BID Blood Clot Prevention/Tx 12/31/23
furosemide 20 mg tablet (Lasix) 20 mg PO DAILY Fluid Retention/Swelling 12/31/23
sodium chloride 1,000 mg soluble tablet 1,000 mg PO DAILY 01/18/24
Review of Systems
-
A 12 point ROS was completed and negative except as noted: Yes
Constitutional: Denies Fever or Chills
Respiratory: Denies Cough or Trouble Breathing
Cardiac: Denies Chest Pain or Palpitations
Abdomen/GI: Denies Abdominal Pain, Nausea, Vomiting or Diarrhea
Physical Exam
Vital Signs
Vital Signs
Pulse Resp BP Pulse Ox
72 19 159/90 94
01/18/24 21:45 01/18/24 20:20 01/18/24 21:00 01/18/24 21:45
Physical Exam
General: Comfortable and Conversant
HEENT: Anicteric and Other (Mucous membranes appear slightly )
Respiratory: Clear and Non Labored Respirations
Cardiac: S1/S2 and Regular Rhythm
GI: Soft and Non Tender
Rectal: Deferred by Provider
Musculoskeletal: No Clubbing, No Cyanosis, No Edema and Other (Compression Stockings)
Skin: Warm and Dry
Neuro: Awake, Alert, Oriented and Nonfocal/grossly intact
Psych: Calm
Laboratory Results
-
01/18/24 18:09
01/18/24 18:09
Laboratory Results
Total Bilirubin 0.6 mg/dl (0.2-1.3) 01/18/24 18:09
AST 23 U/L (17-59) 01/18/24 18:09
ALT 22 U/L (0-50) 01/18/24 18:09
Alkaline Phosphatase 39 U/L (38-126) 01/18/24 18:09
Data Reviewed
-
Lab Data: Labs Reviewed by me
Old Records: Reviewed
Impression/Plan
-
Acute on Chronic Hyponatremia
-Consult Nephrology
-Continue fluid restriction
-Continue Lasix 40mg Daily
-Continue Sodium 0.5gm BID
-Recheck sodium level in AM
Disequilibrium
-Possibly related to hyponatremia - Check orthostatic VS as possible
-Patient refused Head CT
COPD, no acute exacerbation
-Continue Trelegy
Essential Hypertension
-Continue amlodipine and carvedilol
Hyperlipidemia
-Continue Crestor
Diabetes Mellitus, Type II
-Continue metformin and glipizide
-Patient maintained on Mounjaro as outpatient
-Monitor sugars and continue coverage insulin
Trigeminal Neuralgia
-Continue gabapentin and oxcarbazepine
Depression
-Continue Lexapro
Obstructive Sleep Apnea
-Continue CPAP
Hx Pulmonary Embolism
-Continue Eliquis
Code Status: Full Code
[2024-01-19] VITALS: BP 155/77
[2024-01-19 01:28] VITALS: BP 136/77; BMI 36.8
[2024-01-19] MEDS: ELIQUIS 5 MG PO ×2 (02:41→10:27)
[2024-01-19] MEDS: SODIUM CHLORIDE 0.5 GRAM PO ×2 (02:41→07:34)
[2024-01-19 04:55] VITALS: BMI 36.8
[2024-01-19 05:27] LABS: Hematocrit 34.2 % (39.0-52.0); Hemoglobin 12.8 g/dL (13.0-18.0); Mean Corp Hgb Conc. 37.4 g/dL (33.0-37.0); Mean Corpuscular Hgb 34.5 pg (27.0-31.0); Mean Corpuscular Volume 92.2 fL (80.0-94.0); Mean Platelet Volume 10.1 fL (7.4-10.4); Platelet Count 250 10^3/uL (130-400); Red Blood Cell Count 3.71 10^6/uL (4.70-6.10); White Blood Cell Count 6.4 10^3/uL (4.8-10.8)
[2024-01-19 05:54] LABS: Blood Urea Nitrogen 10 mg/dl (9-20); Carbon Dioxide 23 mmol/L (22-30); Chloride 98 mmol/L (98-107); Estimated Creatinine Clearance > 125 ml/min; Glucose 93 mg/dl (70-99); Potassium 4.4 mmol/L (3.5-5.1); Sodium 130 mmol/L (135-145); eGFR > 60.00
[2024-01-19 06:23] LABS: Cortisol, Random 2.3 ug/dl; TSH Reflex To Free T4 1.13 uIU/ml (0.47-4.68)
[2024-01-19] MEDS: APRESOLINE 25 MG PO (07:33)
[2024-01-19] MEDS: GLUCOPHAGE 500 MG PO (07:33)
[2024-01-19] MEDS: CRESTOR 20 MG PO (07:33)
[2024-01-19] MEDS: FLORASTOR 250 MG PO (07:33)
[2024-01-19] MEDS: ATIVAN 0.5 MG PO ×2 (07:33→16:13)
[2024-01-19] MEDS: COREG 12.5 MG PO (07:33)
[2024-01-19] MEDS: NEURONTIN 300 MG PO (07:33)
[2024-01-19] MEDS: NORVASC 5 MG PO (07:34)
[2024-01-19] MEDS: LEXAPRO 10 MG PO (07:34)
[2024-01-19] MEDS: TRILEPTAL 600 MG PO (07:34)
[2024-01-19] MEDS: LASIX 40 MG PO (07:34)
[2024-01-19 07:45] VITALS: BP 126/68; BP 136/67; BP 139/74; PULSE 71; PULSE 72; PULSE 73
[2024-01-19] MEDS: AMARYL 4 MG PO (07:49)
--- NOTE | 2024-01-19 08:11 | W.CON.NEPH ---
Consultation
-
Date/Time Consultation Requested: January 19, 2024 8 AM
Date/Time Consultation Performed: January 19, 2024 8 AM
Requesting Provider: Dr. Medina
Performing Provider: Dr. Sin
Reason for Consultation: Hyponatremia
Medical History
-
Chief Complaint: Cramping, fatigue
History of Present Illness:
This is a 73-year-old gentleman who has COPD though not from smoking on chronic medications, hypertension on a multidrug regimen as well as diabetes on oral medications. He does have trigeminal neuralgia treated with oxcarbazepine without new
issues. He seems to also have chronic hyponatremia running around 130 on average. He does take Lasix 20 mg daily. He was recently in the hospital at the end of December with a sodium level of 126. His admission diagnosis at that time was weakness
and shortness of breath. His hyponatremia was treated with fluid restriction as well as Samsca. He was 137 at the time of discharge. In the last few days however he has developed weakness again with cramping which he blames on low sodium level
blood work was repeated which showed a sodium level of 130. He called the answering service. He was instructed to increase Lasix to twice daily and to add salt tablets. He was to maintain a fluid restriction. There is also discussion of weaning
his Lexapro dose. On his way to get salt tablets in the pharmacy he developed and balance issues and the pharmacist recommended he go to emergency room and so he did. History level maintained at 130 though he is and that the hyponatremia is his
primary issue.
Past Medical History
Non-Obstructing Coronary Artery Disease
COPD
Chronic hyponatremia
Essential Hypertension
Hyperlipidemia
Diabetes Mellitus, Type II
Pulmonary Embolism
Trigeminal Neuralgia
Obstructive Sleep Apnea
GERD
Prostate Cancer
Right Eye Melanoma
Prostatectomy
Hernia Repair
[facility] for Melanoma Removal
Cervical Spine Fusion
Bilateral Knee Surgeries
Right Shoulder Surgery
Social History
Tobacco: Non-Smoker
Alcohol: None
Family History
Family History: Not Pertinent
Allergies / Home Medications
Allergy/AdvReac Type Severity Reaction Status Date / Time
butorphanol Allergy Pharmacy Verified 01/18/24 18:00
to Review
onabotulinumtoxinA Allergy FACIAL PAIN Verified 01/18/24 18:00
[From Botox]
�Medication �Instructions �Recorded �Confirmed �Type
Saccharomyces boulardii 250 mg 250 mg PO DAILY Supplement 02/16/22 01/18/24 History
capsule (Florastor)
cholecalciferol (vitamin D3) 25 25 mcg PO DAILY Supplement 02/16/22 01/18/24 History
mcg (1,000 unit) tablet (Vitamin
D3)
glimepiride 4 mg tablet 4 mg PO BID Diabetes 02/16/22 01/18/24 History
lorazepam 0.5 mg tablet 0.5 mg PO TID Mental Health/Anxiety 02/16/22 01/18/24 History
calcium citrate 200 mg (950 mg) 200 mg PO DAILY Supplement 03/27/22 01/18/24 History
tablet
oxcarbazepine 600 mg tablet 600 mg PO BID Trigeminal neuralgia 03/27/22 01/18/24 History
pantoprazole 40 mg tablet,delayed 40 mg PO QPM GERD 03/27/22 01/18/24 History
release
albuterol sulfate 90 mcg/actuation 2 puff inhalation R Q4HPRN PRN 01/29/23 01/18/24 History
aerosol inhaler sob/wheezing
amlodipine 5 mg tablet 5 mg PO DAILY Blood Pressure 01/29/23 01/18/24 History
cyclosporine 0.05 % eye drops in a 1 drp BOTH EYES BID Eye Condition 01/29/23 01/18/24 History
dropperette
rosuvastatin 20 mg tablet (Crestor) 20 mg PO DAILY #30 tabs 02/01/23 01/18/24 Rx
carvedilol 12.5 mg tablet 12.5 mg PO BID Heart 06/19/23 01/18/24 History
Disease/Condition
gabapentin 300 mg capsule 300 mg PO BID Neurological 06/19/23 01/18/24 History
Condition
hydralazine 25 mg tablet 25 mg PO BID Blood Pressure 06/19/23 01/18/24 History
melatonin 10 mg tablet 20 mg PO HS Sleep 06/19/23 01/18/24 History
metformin 500 mg tablet 500 mg PO BID Diabetes 06/19/23 01/18/24 History
psyllium 1 tbsp PO DAILY Supplement 06/19/23 01/18/24 History
tadalafil 5 mg tablet 5 mg PO DAILY Urinary Issue 06/19/23 01/18/24 History
therapeutic multivitamin 1 tab PO DAILY Supplement 06/19/23 01/18/24 History
tirzepatide 5 mg/0.5 mL 10 mg SC FR Diabetes 06/19/23 01/18/24 History
subcutaneous pen injector
(Mounjaro)
cetirizine 10 mg tablet (Zyrtec) 10 mg PO DAILY Allergies 12/30/23 01/18/24 History
escitalopram oxalate 10 mg tablet 10 mg PO DAILY Depression 12/30/23 01/18/24 History
fluticasone fur. 100 mcg-umeclid 1 inh inhalation DAILY 12/30/23 01/18/24 History
62.5 mcg-vilant 25 mcg Lung/Breathing Issues
inhalat.powder (Trelegy Ellipta)
apixaban 5 mg tablet (Eliquis) 5 mg PO BID Blood Clot 12/31/23 01/18/24 History
Prevention/Tx
furosemide 20 mg tablet (Lasix) 20 mg PO DAILY Fluid 12/31/23 01/18/24 History
Retention/Swelling
sodium chloride 1,000 mg soluble 1,000 mg PO DAILY Supplement 01/18/24 History
tablet
Review of Systems
-
Imbalance no chronic given lumbar stenosis issues, walks with a cane, muscle cramping
All other systems: Negative unless noted
Physical Exam
Vital Signs
Vital Signs
Temp Pulse Resp BP Pulse Ox
98.5 F 69 18 136/77 96
01/19/24 01:28 01/19/24 01:28 01/19/24 01:28 01/19/24 01:28 01/19/24 01:28
Lab Results
WBC 6.4 10^3/uL (4.8-10.8) 01/19/24 04:56
RBC 3.71 10^6/uL (4.70-6.10) L 01/19/24 04:56
Hgb 12.8 g/dL (13.0-18.0) L 01/19/24 04:56
Hct 34.2 % (39.0-52.0) L 01/19/24 04:56
Plt Count 250 10^3/uL (130-400) 01/19/24 04:56
Sodium 130 mmol/L (135-145) L 01/19/24 04:56
Potassium 4.4 mmol/L (3.5-5.1) 01/19/24 04:56
Chloride 98 mmol/L (98-107) 01/19/24 04:56
Carbon Dioxide 23 mmol/L (22-30) 01/19/24 04:56
BUN 10 mg/dl (9-20) 01/19/24 04:56
Creatinine 0.7 mg/dL (0.7-1.3) 01/19/24 04:56
eGFR > 60.00 01/19/24 04:56
Glucose 93 mg/dl (70-99) 01/19/24 04:56
Calcium 9.0 mg/dl (8.4-10.2) 01/19/24 04:56
Albumin 4.7 g/dl (3.5-5.0) 01/18/24 18:09
Physical Exam
Patient is awake alert oriented and in no distress. Mood and affect were pleasant, insight and judgment were good. Pupils are equal round and reactive to light, extraocular movements are intact, sclera were anicteric. Hearing was normal, ears and
nose are intact. Oropharynx was clear. Neck was supple with trachea midline and no thyromegaly. Heart was regular rate and rhythm without rubs. Lower extremities without edema. Lungs were clear to auscultation bilaterally and with normal
excursion. Abdomen was soft, nontender, with normal active bowel sounds, and no hepatosplenomegaly. Skin was without rash and with normal turgor.
Data Reviewed
-
Medical Tests (Nuc Med, Echo etc): Image Personally Visualized and interpreted (EKG on 01/18/2024 by my reading shows normal sinus rhythm first-degree AV block left anterior fascicular block anterior Q-wave)
Labs: Labs Reviewed by me (Hemoglobin 12.8 WBC 6.4, sodium 130, potassium 4.4, BUN 10, creatinine 0.7, urine osmolality 389, urine sodium 63)
Old Records: Reviewed (On January 01, 2024 sodium 136)
Assessment/Plan
-
Assessment
COPD
Shortness of breath
Anxiety
Acute on chronic hyponatremia
Hypertension
Trigeminal neuralgia
Diabetes mellitus type 2
Intermittent rectal bleeding
Hyperlipidemia
GERD
Plan
He would appear to have excess ADH. There are many reasons for this. These include COPD, oxcarbazepine, trigeminal neuralgia, Lexapro.
I do not currently believe that his hyponatremia is causing his current level of symptoms.
We will offer low-dose Samsca today
Continue Lasix 20 mg twice daily, salt tablets 5 mg twice daily
Repeat blood work in the afternoon. If his sodium level has improved and he wishes to leave he could be discharged from a renal perspective
[2024-01-19 08:14] LABS: Glucose - Point of Care 135 mg/dl (70-99)
[2024-01-19] MEDS: SPIRIVA RESPIMAT 2.5 MCG 2 PUFF INH (08:17)
[2024-01-19] MEDS: SYMBICORT 80/4.5 MCG INHALER 2 PUFF INH (08:17)
[2024-01-19] MEDS: ProAIR HFA INHALER 2 PUFF INH (08:18)
[2024-01-19] MEDS: SAMSCA 7.5 MG PO (09:01)
--- NOTE | 2024-01-19 09:04 | W.PN.HOSP.TC ---
Addendum entered and electronically signed by Marilyn Cee MD 01/19/24 09:20:
cortisol level is low this AM (2.3 with lower level of 4.5 prior to 10 AM)--consider outpt cosyntropin stim test--will defer to PCP or Dr. Sin
Original Note:
Today's Communication/Plan
-
if sodium improved can d/c
Assessment / Plan
Assessment / Plan
pt is a 73 year old male
Acute on Chronic Hyponatremia--has been lower before--apprec renal--lots of reason to be hyponatremic--cont fluid restriction (has 2 large water glasses plus 2 coffee sized drinks on his breakfast tray)--says he follows this but doubt--Continue
fluid restriction--Continue Lasix 40mg Daily--Continue Sodium 0.5gm BID--Recheck sodium level at 3 PM--if OK then d/c
myalgias (upper thigh and hip)--likely due to neuropathy, arthritis, possibly crestor....no need for US to r/o DVT--calves soft--no chest pain, not hypoxic PLUS already on Eliquis....
Disequilibrium---Patient refused Head CT--PT/OT-- Check orthostatic VS as possible
COPD, no acute exacerbation-Continue Trelegy
Essential Hypertension-Continue amlodipine and carvedilol
Hyperlipidemia-Continue Crestor
Diabetes Mellitus, Type II-Continue metformin and glipizide-Patient maintained on Mounjaro as outpatient-Monitor sugars and continue coverage insulin
Trigeminal Neuralgia-Continue gabapentin and oxcarbazepine
Depression-Continue Lexapro
Obstructive Sleep Apnea-Continue CPAP
Hx Pulmonary Embolism-Continue Eliquis
Code Status: Full Code
Anticipated Discharge: Today
Subjective/Interval History
-
Date of Service: January 19, 2024
pt adamant he wants INPATIENT workup for chronic issues
Objective Data
-
Labs:
Laboratory Results
07/14/24 07/14/24
04:56 15:00
WBC 6.4
Hgb 12.8 L
Hct 34.2 L
Plt Count 250
Sodium 130 L Pending
Potassium 4.4 Pending
Chloride 98 Pending
Carbon Dioxide 23 Pending
BUN 10 Pending
Creatinine 0.7 Pending
Glucose 93 Pending
Calcium 9.0 Pending
Vital Signs:
max temp for 24 hours
01/19/24
01:28
Temp 98.5 F
Vital Signs
Temp Pulse Resp BP Pulse Ox
98.4 F 71 18 139/74 96
01/19/24 07:45 01/19/24 07:45 01/19/24 07:45 01/19/24 07:45 01/19/24 07:45
I&O
01/18/24 01/19/24 01/20/24
06:59 06:59 06:59
Intake Total 480 / 480
Balance 480 / 480
Review of Systems
-
All other systems: Reviewed and negative
Musculoskeletal: Reports Myalgias
Physical Exam
-
General: Well Developed, Well Nourished and No Apparent Distress
Respiratory: Clear to Auscultation; Negative Wheezes or Rhonchi
Cardiac: Regular Rhythm; Negative Murmur
GI: Soft, Nontender, Nondistended and Normal Bowel Sounds
Musculoskeletal: No Clubbing, No Cyanosis, No Edema and Other (no calf pain to palpation)
Psych: Anxious
[2024-01-19] MEDS: TYLENOL 650 MG PO (10:33)
[2024-01-19] MEDS: ZYRTEC 10 MG PO (10:39)
[2024-01-19 11:42] LABS: Glucose - Point of Care 144 mg/dl (70-99)
--- NOTE | 2024-01-19 13:11 | CM ---
Addendum entered by Julieta aMrk 01/19/24 13:16:
Pt for dc today. Pt drove himself here and says that he will drive himself home.
Original Note:
Initial assessment was completed with pt at bedside.
Pt is a 73yr old male admitted with hyponatremia and weakness.
At baseline, pt lives in a multi level home alone that has 1 step to enter and a 2nd floor bed and full bath.
Pt uses a cane at baseline for stability but it otherwise independent.
Pt does talk about his overall fatigue and weakness that has prevented him from doing his daily life activities as usual.
SW talked about hiring supports and/or [place] [employer], but pt says he does have enough to hire, but too much for assistance.
Pt does have [facility] for med assistance
SW offered Home Health, to which pt declined, but says that he has an appointment with his PCP Saturday and will ask for order if he changes his mind.
PCP; Rigoberto Conway
PLAN; dc to home no needs
[2024-01-19] MEDS: DUONEB 3 ML INH (13:27)
--- NOTE | 2024-01-19 13:53 | W.DCSUMMARY ---
Discharge Summary
Discharge Data
Date of Admission: 01/18/24
Date of Discharge: 01/19/24
-
Pending Results: No
Hospital Course
Primary care physician : Rigoberto Conway
Principal Discharge diagnosis : Acute on chronic hyponatremia, myalgias
Chronic Discharge diagnosis : Disequilibrium (patient walks with cane at baseline), chronic obstructive pulmonary disease, essential hypertension, hyperlipidemia, type 2 diabetes mellitus, trigeminal neuralgia, depression, obstructive sleep apnea,
history of pulmonary embolism
Hospital Course : Patient was a 73-year-old male with a history of SIADH with chronic hyponatremia who presented with weakness and 'imbalance'. He states that he had fatigue several days prior to admission. He stated the symptoms were similar to
when he was hospitalized in December for hyponatremia. His automobile racer obtained outpatient blood work which revealed a sodium of 130. He did contact his automobile racer again and instructed him to take double his dose of Lasix and started him on sodium
tablets. Patient stated that when he went to bead picker the sodium tablets he had 2 episodes of imbalance again. Patient was found to have a sodium level of 130 and was admitted.
Problem #1: Acute on chronic hyponatremia. This is from chronic SIADH. Patient was seen in consultation by nephrology and given a double dose of Lasix as well as salt tablets started. Patient states he is compliant with his fluid restriction
however, there are 2 large glasses of water at his bedside along with 2 coffee sized cups on his breakfast tray. In addition, patient has multiple reasons to have SIADH which include chronic obstructive pulmonary disease, oxcarbazepine, trigeminal
neuralgia, Lexapro. He has been lower in the past and his sodium level is not as low as previous. Plan is to continue Lasix twice daily along with salt tablets and Samsca and repeat blood work at 3 PM. If his blood work is stable. He is able to
be discharged. Of note, patient's cortisol level which was checked as part of his workup and was found to be low at 2.3 (lower limit of normal before 10 AM is 4.5). Will defer further workup as an outpatient to his PCP and/or his automobile racer.
Problem #2: Myalgias. Patient complains of cramps in his upper thigh and hip. He is concerned for a blood clot. He has no symptoms. He is also on Eliquis. The likelihood that this is a blood clot is exceedingly low. Therefore I have not
ordered this study. Patient is upset and 'wants to get to the bottom of what is wrong'. I did explain to him that this does not require hospitalization to do so and that he should follow-up with his primary care physician. There are myriad of
reasons why he could have myalgias including arthritis, statin, Lasix itself, neuropathy, etc.
Problem #3: All other medical issues. These include Disequilibrium (patient walks with cane at baseline), chronic obstructive pulmonary disease, essential hypertension, hyperlipidemia, type 2 diabetes mellitus, trigeminal neuralgia, depression,
obstructive sleep apnea, history of pulmonary embolism. These medical issues were stable during his hospitalization. Medications were continued as able. In regards to his disequilibrium, patient actually refused a CAT scan of his head on
admission.
Patient is stable for discharge home at this time. He should follow-up with his primary care physician to further evaluate his ongoing chronic complaints. If there are any questions regarding this dictation or his hospital stay, please not
hesitate to call. Our office number is [phone].
Discharge Plan
-
Patient Disposition: Home (Routine Discharge)
Discharge Diagnosis/Procedures: acute on chronic hyponatremia, myalgias, diselquilibrium, Chronic obstructive pulmonary disease, essential hypertension, hyperlipidemia, type 2 diabetes mellitus, trigeminal neuralgia, anxiety, dpression, obstructive
sleep apnea, history of pulm embolism ON eliquis
Condition: Good
Diet: Diabetic, Carb Controlled and Other diet
Additional Diets: restrict fluids to 1200ml/day (40 oz)
Activity: As tolerated
Driving Restrictions: As prior to admission
Bathing Restrictions: None
Specialty Instructions: Weigh Daily- Call MD for wt gain/loss 3 lbs overnight/5 lbs in 1 week
Referrals:
Rigoberto Conway MD [Family Provider] - in less than 1 week
Prescriptions:
New
sodium chloride 1,000 mg Tablet,Soluble
500 mg PO BID Qty: 0 0RF
Continued
lorazepam 0.5 mg Tablet
0.5 mg PO TID
Patient Comments:
06/19/2023, patient filled this medication on 06/13/2023 for 30 tablets according to PDMP.
glimepiride 4 mg Tablet
4 mg PO BID
Saccharomyces boulardii [Florastor] 250 mg Capsule
250 mg PO DAILY
cholecalciferol (vitamin D3) [Vitamin D3] 25 mcg (1,000 unit) Tablet
25 mcg PO DAILY
oxcarbazepine 600 mg Tablet
600 mg PO BID
calcium citrate 200 mg (950 mg) Tablet
200 mg PO DAILY
pantoprazole 40 MG tablet,delayed release (DR/EC)
40 mg PO QPM
amlodipine 5 mg tablet
5 mg PO DAILY
albuterol sulfate 90 mcg/actuation HFA aerosol inhaler
2 puff INHALATION R Q4HPRN PRN (Reason: sob/wheezing)
cyclosporine 0.05 % dropperette
1 drp BOTH EYES BID
rosuvastatin [Crestor] 20 mg tablet
20 mg PO DAILY Qty: 30 0RF
carvedilol 12.5 mg Tablet
12.5 mg PO BID
hydralazine 25 mg Tablet
25 mg PO BID
therapeutic multivitamin Tablet
1 tab PO DAILY
psyllium Powder
1 tbsp PO DAILY
gabapentin 300 mg Capsule
300 mg PO BID
tadalafil 5 mg Tablet
5 mg PO DAILY
melatonin 10 mg Tablet
20 mg PO HS
Mounjaro 5 mg/0.5 mL Pen Injector
10 mg SC FR
metformin 500 MG tablet
500 mg PO BID
cetirizine [Zyrtec] 10 mg Tablet
10 mg PO DAILY
escitalopram oxalate 10 mg Tablet
10 mg PO DAILY
Trelegy Ellipta 100-62.5-25 mcg Blister With Device
1 inh INHALATION DAILY
furosemide [Lasix] 20 mg tablet
20 mg PO DAILY
Eliquis 5 mg tablet
5 mg PO BID
Discontinued
sodium chloride 1,000 mg Tablet,Soluble
1,000 mg PO DAILY
Discharge Orders:
Discharge Patient (As Directed); Ordered 01/19/24
Ordered By: Marilyn Cee
Discharge Date and Time
Print Language: ARMENIAN
[2024-01-19 15:01] LABS: Blood Urea Nitrogen 10 mg/dl (9-20); Carbon Dioxide 22 mmol/L (22-30); Chloride 99 mmol/L (98-107); Estimated Creatinine Clearance > 125 ml/min; Glucose 113 mg/dl (70-99); Potassium 4.2 mmol/L (3.5-5.1); Sodium 135 mmol/L (135-145); eGFR > 60.00
[2024-01-19] MEDS: LASIX 20 MG PO (16:13)
== END 2024-01-19 16:41 | disposition home or self-care (01) | DRG 645 ==
LOC: 2 NORTH 23:26
PROVIDERS: Physician Assistant; Physician Assistant Medical; Student in an Organized Health Care Education/Training Program; ADMITTING PHYSICIAN Internal Medicine; ATTENDING PHYSICIAN Internal Medicine; CONSULT PHYSICIAN Specialist; EMERGENCY PHYSICIAN Student in an Organized Health Care Education/Training Program; FAMILY PHYSICIAN Family Medicine
DX: E22.2 Syndrome of inappropriate secretion of antidiuretic hormone (principal); G62.9 Polyneuropathy, unspecified; J44.9 Chronic obstructive pulmonary disease, unspecified; I10 Essential (primary) hypertension; E78.5 Hyperlipidemia, unspecified; E11.9 Type 2 diabetes mellitus without complications; G47.33 Obstructive sleep apnea (adult) (pediatric); F32.A Depression, unspecified; Z79.84 Long term (current) use of oral hypoglycemic drugs; Z86.711 Personal history of pulmonary embolism; Z79.01 Long term (current) use of anticoagulants
CPT/HCPCS: 80048; 80053; 82533; 82550; 82962; 83735; 84443; 85025; 85027; 87811; 93005; 94640; 94660; 99285

== ENCOUNTER → 2024-01-29 10:30 | Outpatient (REF) | payer OTHER, SELFPAY ==
[2024-01-29 10:59] LABS: % Basophils 0.4 % (0-2); % Eosinophils 0.7 % (0-6); % Immature Granulocytes 0.8 % (0-0.5); % Lymphocytes 12.8 % (20.5-51.1); % Monocytes 10.7 % (1.7-9.3); % Neutrophils 74.6 % (42.2-75.2); Absolute Eosinophils 0.1 10^3/uL (0-0.7); Absolute Immature Granulocytes 0.1 10^3/uL (0-0.05); Absolute Lymphocytes 0.9 10^3/uL (1.2-3.4); Absolute Monocytes 0.8 10^3/uL (0.1-0.6); Absolute Neutrophils 5.3 10^3/uL (1.4-6.5); Hematocrit 39.3 % (39.0-52.0); Hemoglobin 14.1 g/dL (13.0-18.0); Mean Corp Hgb Conc. 35.9 g/dL (33.0-37.0); Mean Corpuscular Hgb 34.8 pg (27.0-31.0); Mean Platelet Volume 9.9 fL (7.4-10.4); Nucleated Red Blood Cells % 0 % (-); Platelet Count 258 10^3/uL (130-400); Red Blood Cell Count 4.05 10^6/uL (4.70-6.10); Red Cell Dist. Width 13.2 % (11.5-14.5); White Blood Cell Count 7.1 10^3/uL (4.8-10.8)
[2024-01-29 11:30] LABS: ALT (SGPT) 27 U/L (0-50); AST (SGOT) 24 U/L (17-59); Albumin 4.6 g/dl (3.5-5.0); Alkaline Phosphatase 33 U/L (38-126); Blood Urea Nitrogen 18 mg/dl (9-20); Calcium 9.1 mg/dl (8.4-10.2); Carbon Dioxide 23 mmol/L (22-30); Chloride 103 mmol/L (98-107); Glucose 181 mg/dl (70-99); Potassium 4.4 mmol/L (3.5-5.1); Sodium 135 mmol/L (135-145); Total Bilirubin 0.7 mg/dl (0.2-1.3); Total Protein 6.9 g/dl (6.3-8.2); eGFR > 60.00
[2024-01-29 12:00] LABS: Erythrocyte Sed Rate 19 mm/hour (0-20)
[2024-01-30 15:04] LABS: Vitamin B12 414 pg/ml (239-931)
== END ==
LOC: REG 10:30
PROVIDERS: ATTENDING PHYSICIAN Nurse Practitioner Family; FAMILY PHYSICIAN Family Medicine
DX: R42 Dizziness and giddiness (principal); G44.209 Tension-type headache, unspecified, not intractable
CPT/HCPCS: 36415; 80053; 82607; 82746; 85025; 85652

== ENCOUNTER → 2024-02-11 08:45 | Outpatient (REF) | payer OTHER, SELFPAY | LOC: RSP 08:45 | PROVIDERS: ATTENDING PHYSICIAN Family Medicine | DX: R06.02 Shortness of breath (principal) | CPT/HCPCS: 94727; 94729; 88738; 94010 ==

== ENCOUNTER 2024-03-17 05:52 | Day surgery (SDC) | payer OTHER, SELFPAY ==
[2024-03-17] VITALS (9 sets, daily range): BP systolic 112–138; BP diastolic 59–88; BMI 39.1
[2024-03-17 06:53] LABS: Glucose - Point of Care 164 mg/dl (70-99)
--- NOTE | 2024-03-17 08:13 | ITS.CL.CATH ---
Air Bag Buffer - Catheterization
Cardiac Catheterization
Procedure Report:
RIGHT HEART CATHETERIZATION
Date of Procedure: March 17, 2024
Referring: Jodie Gutierrez PA-C, Michelle BalbuenaO.
INDICATION: Obtain invasive hemodynamics in the setting of chronic dyspnea on exertion
Hemodynamics (mmHg):
RA (m) : 10
RV (s/d,m) : 04/01, 12
PA (s/d, m) : ,
PCWP (m) : 16
PA saturation: 72.4% on room air
AO saturation: 92.0% on room air
SVC saturation: 71.6% on room air
Cardiac Output : 7.52 L/min
Cardiac Index : 3.16 L/min/m-2
Pulmonary vascular resistance: 0.80 manzano unit
RADIATION SUMMARY: Fluoro Time (min): 1.6, Dose (mGy): 20.12, DAP (Gy.cm2) : 2.0115
CONCLUSION:
1. Mildly elevated right and left-sided filling pressures with normal cardiac output.
Copy to: Jodie Burrows PA-C, Ora White D.O.
Yamilet Carson MD, [facility], [facility]
[2024-03-17] MEDS: LASIX 20 MG IV (08:24)
== END 2024-03-17 10:08 | disposition home or self-care (01) ==
LOC: CATH 05:52
PROVIDERS: ATTENDING PHYSICIAN Internal Medicine Interventional Cardiology; FAMILY PHYSICIAN Family Medicine; OTHER PHYSICIAN Internal Medicine Cardiovascular Disease
DX: R06.09 Other forms of dyspnea (principal); E87.1 Hypo-osmolality and hyponatremia; I10 Essential (primary) hypertension; E78.5 Hyperlipidemia, unspecified; K21.9 Gastro-esophageal reflux disease without esophagitis; E11.9 Type 2 diabetes mellitus without complications; G47.33 Obstructive sleep apnea (adult) (pediatric); I25.10 Atherosclerotic heart disease of native coronary artery without angina pectoris; J44.9 Chronic obstructive pulmonary disease, unspecified; Z85.46 Personal history of malignant neoplasm of prostate; Z79.84 Long term (current) use of oral hypoglycemic drugs; Z79.85 Long-term (current) use of injectable non-insulin antidiabetic drugs; Z79.01 Long term (current) use of anticoagulants; Z79.4 Long term (current) use of insulin
CPT/HCPCS: 82962; 93451; C1769; C1894

== ENCOUNTER 2024-03-18 16:39 | Emergency (ER) | payer OTHER, SELFPAY ==
[2024-03-18] VITALS (7 sets, daily range): BP systolic 130–146; BP diastolic 56–122; BMI 38.0
--- NOTE | 2024-03-18 19:09 | ED.GENMED ---
History of Present Illness
General
Chief Complaint: Weakness
Source: patient and physician
Exam Limitations: none
Time Seen by Provider: 03/18/24 19:02
Nursing documentation reviewed up to this point in time: agreed with
History of Present Illness
History of Present Illness:
74-year-old male presents emergency ferment complaining of not feeling well, intermittent confusion, weakness and difficulty walking for the past 4 days. He had a right heart catheterization yesterday, and increased dose of Lasix. Primary care
ordered sodium today that was 135. He feels very unlike himself. He had some difficulty with driving, but then was able to drive to the hospital.
Past History
Past History
ED Past Medical History: Cancer (Prostate CA Melanoma, right eye resected), GERD, HTN, Hypercholesterolemia, NIDDM, Psychiatric (depression, Anxiety), Other ( Trigeminal neuralgia, Sleep apnea uses CPAP, PE, C-diff) and Other (Hyponatremia,
C-diff, TIA, Gastroenteritis, Rectal bleeding, left pelvic abscess requiring IR drainage at [facility] 05/12/20, [facility] 05/12/20, Headache, Sleep apnea, PE, )
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
for removal of melanoma, right cataract removal, hemorrhoidectomy; epidurals for cervical spine disease; , Hernia repair. Twisted bowel at 4 years old)
Social History
Tobacco: Non-smoker
Alcohol: Occasional
Drug: None
Personal:
Living: alone
Employment: Disabled
Family History
Family History: Other (reviewed and noncontributory)
Review of Systems
Review of Systems
Allergies reviewed?: Yes
All Other Systems: Not applicable
Constitutional: Reports no symptoms
EENT: Reports no symptoms
Respiratory: Reports trouble breathing
Cardiac: Reports no symptoms; Denies chest pain
ABD/GI: Reports no symptoms
: Reports no symptoms
Musculoskeletal: Reports no symptoms
Skin: Reports no symptoms
Neurological: Reports dizzy, weakness and other (Confusion)
Endocrine: Reports no symptoms
Hematologic/Lymphatic: Reports no symptoms
Psychiatric: Reports no symptoms
Phy Exam
Physical Exam
Physical Exam:
Physical Exam
General: no apparent distress, not acutely ill
Neck: supple. no meningeal signs. normal posterior pharynx
Heart: s1/s2 regular rate and rhythm, no murmur. equal radial
pulses.
HEENT: Pupils equal round reactive to light, EOMI
Lungs: no acute respiratory distress. clear bilaterally
Abdomen: normal bowel sounds. not tender. no CVAT
Neuro: alert and oriented. no focal neurological deficits cranial nerves II through XII intact
Skin: no rash
Psychiatric: well kept. interactive and cooperative
Extremities: no edema. no calf tenderness. negative homans. good distal pulses
Course
Orders/Labs/Results
Orders:
Orders
03/18/24 16:39
EKG [Electrocardiogram (*1)] Urgent
Reason for Study: Shortness of Breath
03/18/24 16:40
EKG- Treatment ONCE
03/18/24 19:05
Cardiac Monitoring- Treatment ONCE
IV Insert/Care/Rem.- Treatment PRN
Pulse Ox/cont/shift [RESP] Stat
Quantity: 1
03/18/24 19:07
Electrocardiogram (*1) Stat
Reason for Study: Other
Other Reason for Exam: pneumonia
EKG- Treatment ONCE
03/18/24 19:08
CT Head W/o Iv Contrast Urgent
Comment:
Reason For Exam: confusion
03/18/24 19:23
Complete Blood Count/With Diff Urgent
Comprehensive Metabolic Panel Urgent
Magnesium Urgent
NT-proBNP Urgent
Troponin I Urgent
03/18/24 20:58
CR Chest - 2 Views Urgent
Comment:
Reason For Exam: short of breath
Abnormal Lab Results
03/18/24
19:23
RBC 3.93 L 10^6/uL
(4.70-6.10)
Hct 35.9 L %
(39.0-52.0)
MCH 33.6 H pg
(27.0-31.0)
Absolute Monos (auto) 0.9 H 10^3/uL
(0.1-0.6)
Lymphocytes % 16.3 L %
(20.5-51.1)
Monocytes % 10.5 H %
(1.7-9.3)
Sodium 134 L mmol/L
(135-145)
Chloride 97 L mmol/L
(98-107)
Glucose 159 H mg/dl
(70-99)
03/18/24 19:23
03/18/24 19:23
Vital Signs
Initial and Last Documented VS:
Initial Vital Signs
Temp Pulse Resp BP Pulse Ox
98.7 F 64 18 144/69 95
03/18/24 16:42 03/18/24 16:42 03/18/24 16:42 03/18/24 16:42 03/18/24 16:42
Last Documented Vital Signs
Temp Pulse Resp BP Pulse Ox
98.7 F 66 17 141/122 96
03/18/24 16:42 03/18/24 22:45 03/18/24 22:45 03/18/24 22:00 03/18/24 22:15
MDM/Problems Addressed
Differential Diagnosis Includes:
CVA, hyponatremia
MDM/Problems Addressed:
74-year-old male with weakness, unclear etiology. No signs of CVA. No neurologic deficits. Stable for discharge.
Chronic conditions affecting care: Cardiomyopathy
Acute Exacerbation and/or Progression of Chronic Illness: Cardiomyopathy
*Radiology
Radiology exam reviewed: radiology read reviewed (CT head no acute findings)
*Pulse Oximetry
Patient hypoxic: no
*EKG
Interpreted by ED Provider?: Yes
EKG Intrepretation Date: 03/18/24
EKG Intrepretation Time: 16:54
Interpretation: abnormal
Comparison EKG: changes noted
Heart Rate: 70
Rate: normal
Rhythm: sinus
[place]: normal axis
Interval: normal interval
QRS Pattern: left vent hypertrophy
Ischemia: no ischemia
*Roofing Technician Interpretation
Rate: normal
Interpretation: normal
Heart Rate: 70
Rhythm: sinus
*Critical Care Note
Total Time (30-74mins, 75-104mins- exclusive of procedures): Not Applicable
Data Reviewed
Review of Other/Old Records Reveals: Operative Reports (Recent cardiac catheterization normal EF)
Patient Management
Social determinants of health affecting care: Living situation
Escalation/DeEscalation of care consider admission/obs:
Admit not indicated, shared decision making with patient, elected to go home
ED Attending Note
-
Portions of this chart may have been created with voice recognition software.� Occasional wrong word or��sound alike� substitutions may have occurred due to the inherent limitations of voice recognition software.
Discharge Plan
Departure
Patient Disposition: Home (Routine Discharge)
Date of Disposition: 03/18/24
Time of Disposition: 22:47
Patient with high blood pressure during this ER visit?: Yes
Condition: Good
Discharge Problem:
Weakness
Instructions: Generalized Weakness (DC), BLOOD PRESSURE
Prescriptions:
No Action
lorazepam 0.5 mg Tablet
0.5 mg PO TID
Patient Comments:
06/19/2023, patient filled this medication on 06/13/2023 for 30 tablets according to PDMP.
glimepiride 4 mg Tablet
4 mg PO BID
oxcarbazepine 600 mg Tablet
300 mg PO BID
pantoprazole 40 MG tablet,delayed release (DR/EC)
40 mg PO QPM
amlodipine 5 mg tablet
5 mg PO DAILY
albuterol sulfate 90 mcg/actuation HFA aerosol inhaler
2 puff INHALATION R Q4HPRN PRN (Reason: sob/wheezing)
cyclosporine 0.05 % dropperette
1 drp BOTH EYES BID
carvedilol 12.5 mg Tablet
12.5 mg PO BID
hydralazine 25 mg Tablet
25 mg PO BID
gabapentin 300 mg Capsule
300 mg PO BID
tadalafil 5 mg Tablet
5 mg PO DAILY
melatonin 10 mg Tablet
20 mg PO HS
Mounjaro 5 mg/0.5 mL Pen Injector
7.5 mg SC FR
metformin 500 MG tablet
500 mg PO BID
cetirizine [Zyrtec] 10 mg Tablet
10 mg PO DAILY
Trelegy Ellipta 100-62.5-25 mcg Blister With Device
1 inh INHALATION DAILY
Eliquis 5 mg tablet
5 mg PO BID
sodium chloride 1,000 mg Tablet,Soluble
500 mg PO BID Qty: 0 0RF
famotidine 10 mg Tablet
10 mg PO DAILY
multivitamin Tablet
1 tab PO DAILY
calcium 600 mg Capsule
1,200 mg PO DAILY
ascorbic acid (vitamin C) 1,000 mg Tablet
1,000 mg PO DAILY
albuterol sulfate 2.5 mg /3 mL (0.083 %) Solution For Nebulization
2.5 mg INHALATION QID PRN (Reason: Pain)
acetaminophen 500 mg Tablet
500 mg PO Q6H PRN (Reason: pain)
insulin aspart U-100 [Novolog FlexPen U-100 Insulin] 100 unit/mL (3 mL) Insulin Pen
1 sliding scale dose SC DIRECTED
rosuvastatin 5 mg Tablet
5 mg PO DAILY
furosemide [Lasix] 40 mg tablet
40 mg PO BID Qty: 60 5RF
Referrals:
Rigoberto Conway MD [Family Provider] - Call in 1-3 days for appt
Interventions
Interventions:
*Risk Screen - Suicide Last Done: 03/18/24 16:42
*General Assessment Last Done: 03/18/24 16:42
*Neglect/Abuse Screening Last Done: 03/18/24 16:42
ED- Fall Risk Assessment Last Done: 03/18/24 16:48
*ED COVID-19 Vaccine History Last Done: 03/18/24 16:42
ED- Cardiac Assessment Last Done: 03/18/24 17:31
ED- Neurological Assessment Last Done: 03/18/24 17:31
ED- Pulmonary Assessment Last Done: 03/18/24 17:31
Discharge Date and Time
Print Language: SWAZI
[2024-03-18 19:33] LABS: % Basophils 0.4 % (0-2); % Eosinophils 0.9 % (0-6); % Immature Granulocytes 0.5 % (0-0.5); % Lymphocytes 16.3 % (20.5-51.1); % Monocytes 10.5 % (1.7-9.3); % Neutrophils 71.4 % (42.2-75.2); Absolute Eosinophils 0.1 10^3/uL (0-0.7); Absolute Lymphocytes 1.3 10^3/uL (1.2-3.4); Absolute Monocytes 0.9 10^3/uL (0.1-0.6); Absolute Neutrophils 5.9 10^3/uL (1.4-6.5); Hematocrit 35.9 % (39.0-52.0); Hemoglobin 13.2 g/dL (13.0-18.0); Mean Corp Hgb Conc. 36.8 g/dL (33.0-37.0); Mean Corpuscular Hgb 33.6 pg (27.0-31.0); Mean Corpuscular Volume 91.3 fL (80.0-94.0); Mean Platelet Volume 9.9 fL (7.4-10.4); Nucleated Red Blood Cells % 0 % (-); Platelet Count 249 10^3/uL (130-400); Red Blood Cell Count 3.93 10^6/uL (4.70-6.10); Red Cell Dist. Width 12.6 % (11.5-14.5); White Blood Cell Count 8.2 10^3/uL (4.8-10.8)
[2024-03-18 19:46] LABS: ALT (SGPT) 27 U/L (0-50); AST (SGOT) 27 U/L (17-59); Albumin 4.5 g/dl (3.5-5.0); Alkaline Phosphatase 43 U/L (38-126); Blood Urea Nitrogen 12 mg/dl (9-20); Calcium 9.3 mg/dl (8.4-10.2); Carbon Dioxide 25 mmol/L (22-30); Chloride 97 mmol/L (98-107); Estimated Creatinine Clearance 124 ml/min; Glucose 159 mg/dl (70-99); Magnesium 1.8 mg/dl (1.6-2.3); Potassium 3.6 mmol/L (3.5-5.1); Sodium 134 mmol/L (135-145); Total Bilirubin 0.5 mg/dl (0.2-1.3); Total Protein 6.8 g/dl (6.3-8.2); eGFR > 60.00
[2024-03-18 19:52] LABS: Anisocytosis Slight
[2024-03-18 19:53] LABS: Macrocytosis Slight; Poikilocytosis Slight
[2024-03-18 19:55] LABS: Normal RBC Morphology No
[2024-03-18 19:59] LABS: NT-proBNP 46.6 pg/ml; Troponin I < 0.012 ng/ml
== END 2024-03-18 23:10 | disposition home or self-care (01) ==
LOC: EMR 16:39
PROVIDERS: EMERGENCY PHYSICIAN Emergency Medicine; FAMILY PHYSICIAN Family Medicine
DX: R53.1 Weakness (principal); K21.9 Gastro-esophageal reflux disease without esophagitis; I10 Essential (primary) hypertension; E78.00 Pure hypercholesterolemia, unspecified; E11.9 Type 2 diabetes mellitus without complications; F41.8 Other specified anxiety disorders; G47.30 Sleep apnea, unspecified; Z85.46 Personal history of malignant neoplasm of prostate; Z85.820 Personal history of malignant melanoma of skin; Z86.73 Personal history of transient ischemic attack (TIA), and cerebral infarction without residual deficits; Z90.79 Acquired absence of other genital organ(s)
CPT/HCPCS: 99284; 36415; 70450; 71046; 80053; 83735; 83880; 84484; 85025; 93005

== ENCOUNTER → 2024-03-27 06:15 | Day surgery (SDC) | payer OTHER, SELFPAY ==
[2024-03-27 08:34] LABS: Glucose - Point of Care 126 mg/dl (70-99)
== END ==
LOC: GI 06:15
PROVIDERS: ATTENDING PHYSICIAN Specialist
DX: K29.70 Gastritis, unspecified, without bleeding (principal); K25.9 Gastric ulcer, unspecified as acute or chronic, without hemorrhage or perforation; F45.8 Other somatoform disorders
CPT/HCPCS: 43239; 88305; 82962; 88342

== ENCOUNTER → 2024-03-30 12:34 | Outpatient (REF) | payer OTHER, SELFPAY ==
[2024-03-30 13:05] LABS: % Basophils 0.4 % (0-2); % Immature Granulocytes 0.5 % (0-0.5); % Lymphocytes 11.6 % (20.5-51.1); % Monocytes 10.3 % (1.7-9.3); % Neutrophils 76.2 % (42.2-75.2); Absolute Eosinophils 0.1 10^3/uL (0-0.7); Absolute Monocytes 0.9 10^3/uL (0.1-0.6); Absolute Neutrophils 6.4 10^3/uL (1.4-6.5); Hematocrit 39.1 % (39.0-52.0); Hemoglobin 14.1 g/dL (13.0-18.0); Mean Corp Hgb Conc. 36.1 g/dL (33.0-37.0); Mean Corpuscular Hgb 32.9 pg (27.0-31.0); Mean Corpuscular Volume 91.1 fL (80.0-94.0); Mean Platelet Volume 10.1 fL (7.4-10.4); Nucleated Red Blood Cells % 0 % (-); Platelet Count 318 10^3/uL (130-400); Red Blood Cell Count 4.29 10^6/uL (4.70-6.10); Red Cell Dist. Width 12.6 % (11.5-14.5); White Blood Cell Count 8.4 10^3/uL (4.8-10.8)
== END ==
LOC: REG 12:34
PROVIDERS: ATTENDING PHYSICIAN Nurse Practitioner Family; FAMILY PHYSICIAN Family Medicine
DX: K92.1 Melena (principal)
CPT/HCPCS: 36415; 85025

== ENCOUNTER → 2024-03-31 12:06 | Outpatient (REF) | payer OTHER, SELFPAY | LOC: REG 12:06 | PROVIDERS: ATTENDING PHYSICIAN Nurse Practitioner Family; REFERRING PHYSICIAN Specialist | DX: K92.1 Melena (principal) | CPT/HCPCS: 87045; 87046; 87324; 87328; 87329; 87427; 87449 ==

== ENCOUNTER → 2024-04-22 13:06 | Outpatient (REF) | payer OTHER, SELFPAY | LOC: RAD 13:06 | PROVIDERS: ATTENDING PHYSICIAN Physician Assistant; FAMILY PHYSICIAN Family Medicine; REFERRING PHYSICIAN Physical Medicine & Rehabilitation | DX: M25.551 Pain in right hip (principal) | CPT/HCPCS: 73502 ==

== ENCOUNTER → 2024-06-12 09:44 | Outpatient (REF) | payer OTHER, SELFPAY | LOC: RST 09:44 | PROVIDERS: ATTENDING PHYSICIAN Family Medicine | DX: R13.0 Aphagia (principal) | CPT/HCPCS: 74230; 92611 ==

== ENCOUNTER → 2024-06-18 11:00 | Outpatient (REF) | payer OTHER, SELFPAY | LOC: MRI 3T 11:00 | PROVIDERS: ATTENDING PHYSICIAN Physical Medicine & Rehabilitation; FAMILY PHYSICIAN Family Medicine | DX: M54.12 Radiculopathy, cervical region (principal) | CPT/HCPCS: 72141 ==

== ENCOUNTER 2024-08-07 19:28 | Emergency (ER) | payer OTHER, SELFPAY ==
[2024-08-07 19:38] VITALS: BP 153/77
--- NOTE | 2024-08-07 19:39 | ED.GENMED ---
ED Provider Triage
<Barbara Hussein PA-C - Last Filed: 08/07/24 19:42>
-
Patient seen by provider in Triage?: Seen in Triage
Attestation: A medical screening examination has been initiated by a qualified medical provider. Based on the assessment performed at this time, it has been determined that an emergent medical condition may exist and the patient has been informed
that further medical evaluation and possible additional diagnostic testing may be needed.
HPI: 74yoM here for low sodium (129) on outpatient labs 2 days ago. C/o not feeling well for a couple of weeks. Having headache, dizziness, confusion.
GENERAL: Alert , in no apparent distress
EYE: No visual abnormalities.
NECK: Trachea midline
ENT: No visible abnormalities.
LUNGS: No acute respiratory distress
NEUROLOGICAL: Alert and oriented
SKIN: Skin intact. No visible changes.
MUSCULOSKELETAL: Moving extremities normally
PSYCH: Normal and appropriate interaction.
This is a medical evaluation conducted in person to initiate diagnostic evaluation and provide initial therapeutics. Please see further documentation by the treating clinician.
Cardiac labs, TSH, UA, EKG, and CT head ordered.
History of Present Illness
<Barbara Hussein PA-C - Last Filed: 08/07/24 19:42>
General
Chief Complaint: Abnormal Lab Value
Time Seen by Provider: 08/08/24 04:45
<Silvana Rodrigues DO - Last Filed: 08/08/24 07:16>
General
Source: patient and previous hospital records (Previous hospitalization December as well as January for acute on chronic hyponatremia. ED visit March 2024 for very similar complaints)
Exam Limitations: none
Nursing documentation reviewed up to this point in time: agreed with
History of Present Illness
History of Present Illness:
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 Maintained on salt tablets
twice daily as well as furosemide and encouraged to maintain daily fluid restriction.
He complains of URI symptoms over the past week or 2 with nasal congestion, intermittent sneezing but no cough, no fever. Along with this he complains of feeling off balance, disequilibrium as well as feeling somewhat confused. He has had no falls.
Walks with a cane at baseline.
Very similar complaints of disequilibrium, confusion during previous hospitalizations as well as during ED visit March her sodium at that time was 134.
He was evaluated by his PCP and had blood work done which showed sodium of 129 and reported to come to the ED.
Patient states after hospitalization in January, he was recommended to follow-up with nephrology, Dr. Sin but after making an appointment he states he was called by the office and recommended to cancel the appointment that further outpatient follow-up
was not needed and to otherwise follow-up with his PCP.
Past History
<Barbara Hussein PA-C - Last Filed: 08/07/24 19:42>
Past History
ED Past Medical History: Cancer (Prostate CA Melanoma, right eye resected), GERD, HTN, Hypercholesterolemia, NIDDM, Psychiatric (depression, Anxiety), Other ( Trigeminal neuralgia, Sleep apnea uses CPAP, PE, C-diff) and Other (Hyponatremia,
C-diff, TIA, Gastroenteritis, Rectal bleeding, left pelvic abscess requiring IR drainage at [facility] 05/12/20, [facility] 05/12/20, Headache, Sleep apnea, PE, )
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
for removal of melanoma, right cataract removal, hemorrhoidectomy; epidurals for cervical spine disease; , Hernia repair. Twisted bowel at 4 years old)
Social History
Tobacco: Non-smoker
Alcohol: Occasional
Drug: None
Personal:
Living: alone
Employment: Disabled
Family History
Family History: Other (reviewed and noncontributory)
<Silvana Rodrigues DO - Last Filed: 08/08/24 07:16>
Past History
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
Phy Exam
<Silvana Rodrigues DO - Last Filed: 08/08/24 07:16>
Physical Exam
Physical Exam:
GENERAL: 74-year-old gentleman appears his stated age, awake and alert, appears in no acute distress. Easily communicative. Oriented x 3. Intermittently argumentative. Mild nasal, stuffy voice is noted. No cough appreciated. Afebrile.
EYE: pupils equal and reactive. anicteric
NECK: Supple, nontender, no meningismus, no significant adenopathy.
ENT: posterior pharynx is without injection, scant clear postnasal drip is noted, oral mucosa is moist. TM clear b/l, nares have mildly boggy turbinates with scant clear rhinorrhea.
CARDIAC: Regular rate and rhythm. no murmur.
LUNGS: Clear breath sounds bilaterally, no acute respiratory distress, no wheezes/rales/rhonchi
ABDOMEN: Rotund, soft, nondistended, without focal tenderness, normoactive BS.
NEUROLOGICAL: Alert and oriented x3, no focal neuro deficits. Ambulatory with cane.
SKIN: Warm and dry, normal color, skin intact. No rash.
MUSCULOSKELETAL: No C/C/E. peripheral pulses are full and equal b/l. No palpable tenderness.
PSYCH: Normal and appropriate interaction.
Course
<Barbara Hussein PA-C - Last Filed: 08/07/24 19:42>
Orders/Labs/Results
Orders:
Orders
08/07/24 19:31
EKG [Electrocardiogram (*1)] Urgent
Reason for Study: Fatigue / Weakness
08/07/24 19:32
EKG- Treatment ONCE
08/07/24 19:41
Urinalysis Reflex To Culture Urgent
Date Specimen was Collected: 08/08/24
Time Specimen was Collected: 03:15
08/07/24 19:47
Complete Blood Count/With Diff Urgent
Comprehensive Metabolic Panel Urgent
TSH Reflex To Free T4 Urgent
Troponin I Urgent
08/08/24 03:46
COVID-19 Antigen Urgent
Source: Nasal Swab
Influenza A+B Rapid Molecular Urgent
SHERINE Source: Nasal Swab
Specimen Description:
08/08/24 05:02
0.9% Sodium Chloride 500 ml [Nss] 500 ml IV BOLUS
08/08/24 05:03
Sodium Chloride 0.5 gram PO NOW STA
Abnormal Lab Results
08/07/24
19:47
RBC 3.92 L 10^6/uL
(4.70-6.10)
Hct 36.1 L %
(39.0-52.0)
MCH 33.9 H pg
(27.0-31.0)
Abs Immat Gran (auto) 0.1 H 10^3/uL
(0-0.05)
Absolute Lymphs (auto) 1.1 L 10^3/uL
(1.2-3.4)
Absolute Monos (auto) 0.8 H 10^3/uL
(0.1-0.6)
Immature Gran % 0.8 H %
(0-0.5)
Lymphocytes % 14.4 L %
(20.5-51.1)
Monocytes % 10.5 H %
(1.7-9.3)
Sodium 130 L mmol/L
(135-145)
Chloride 96 L mmol/L
(98-107)
Glucose 127 H mg/dl
(70-99)
Albumin 5.1 H g/dl
(3.5-5.0)
08/07/24 19:47
08/07/24 19:47
Vital Signs
Initial and Last Documented VS:
Initial Vital Signs
Temp Pulse Resp BP Pulse Ox
99.4 F 73 16 153/77 98
08/07/24 19:38 08/07/24 19:38 08/07/24 19:38 08/07/24 19:38 08/07/24 19:38
Last Documented Vital Signs
Temp Pulse Resp BP Pulse Ox
99.4 F 67 19 156/76 97
08/07/24 19:38 08/08/24 05:30 08/08/24 05:30 08/08/24 03:10 08/08/24 05:15
<Silvana Rodrigues, DO - Last Filed: 08/08/24 07:16>
Orders/Labs/Results
Orders:
Orders
08/07/24 19:31
EKG [Electrocardiogram (*1)] Urgent
Reason for Study: Fatigue / Weakness
08/07/24 19:32
EKG- Treatment ONCE
08/07/24 19:41
Urinalysis Reflex To Culture Urgent
Date Specimen was Collected: 08/08/24
Time Specimen was Collected: 03:15
08/07/24 19:47
Complete Blood Count/With Diff Urgent
Comprehensive Metabolic Panel Urgent
TSH Reflex To Free T4 Urgent
Troponin I Urgent
08/08/24 03:46
COVID-19 Antigen Urgent
Source: Nasal Swab
Influenza A+B Rapid Molecular Urgent
SHERINE Source: Nasal Swab
Specimen Description:
08/08/24 05:02
0.9% Sodium Chloride 500 ml [Nss] 500 ml IV BOLUS
08/08/24 05:03
Sodium Chloride 0.5 gram PO NOW STA
Abnormal Lab Results
08/07/24
19:47
RBC 3.92 L 10^6/uL
(4.70-6.10)
Hct 36.1 L %
(39.0-52.0)
MCH 33.9 H pg
(27.0-31.0)
Abs Immat Gran (auto) 0.1 H 10^3/uL
(0-0.05)
Absolute Lymphs (auto) 1.1 L 10^3/uL
(1.2-3.4)
Absolute Monos (auto) 0.8 H 10^3/uL
(0.1-0.6)
Immature Gran % 0.8 H %
(0-0.5)
Lymphocytes % 14.4 L %
(20.5-51.1)
Monocytes % 10.5 H %
(1.7-9.3)
Sodium 130 L mmol/L
(135-145)
Chloride 96 L mmol/L
(98-107)
Glucose 127 H mg/dl
(70-99)
Albumin 5.1 H g/dl
(3.5-5.0)
08/07/24 19:47
08/07/24 19:47
Vital Signs
Initial and Last Documented VS:
Initial Vital Signs
Temp Pulse Resp BP Pulse Ox
99.4 F 73 16 153/77 98
08/07/24 19:38 08/07/24 19:38 08/07/24 19:38 08/07/24 19:38 08/07/24 19:38
Last Documented Vital Signs
Temp Pulse Resp BP Pulse Ox
99.4 F 67 19 156/76 97
08/07/24 19:38 08/08/24 05:30 08/08/24 05:30 08/08/24 03:10 08/08/24 05:15
Timlt;Silvana Rodrigues, DO - Last Filed: 08/08/24 07:16>
MDM/Problems Addressed
Differential Diagnosis Includes:
Concern for recurrent hyponatremia, concern for peripheral vertigo, other consideration is CVA/central vertigo.
Labs are unremarkable save for mild hyponatremia with sodium of 130. Near patient's baseline.
I do not suspect sodium of 130 as cause for patient's symptoms; he disagrees.
I have recommended a CT of the his head which she declines. Recommend chest x-ray to assess for potential occult pneumonia which may be aggravating hyponatremia�he again declines.
I have encouraged strict fluid restriction.
He is insisting on IV fluids and thus will give 500 cc IV normal saline and will also replete sodium with oral salt tablet.
At this point no indication for acute hospitalization but encouraged to follow-up with PCP and will refer to nephrology as well.
Chronic conditions affecting care: DM, HTN, COPD, Psychiatric illness and Other (Chronic hyponatremia related to SIADH)
<Silvana Rodrigues DO - Last Filed: 08/08/24 07:16>
*Pulse Oximetry
Patient hypoxic: no
*EKG
Interpreted by ED Provider?: Yes
Comparison EKG: no changes (Unchanged from previous March 2024)
Rate: normal
Rhythm: sinus
[place]: left axis deviation
Interval: first degree heart block
QRS Pattern: normal QRS
Ischemia: no ischemia
*[employer] Interpretation
Rate: normal
Interpretation: normal
Rhythm: sinus
*Critical Care Note
Total Time (30-74mins, 75-104mins- exclusive of procedures): Not Applicable
<Silvana Rodrigues DO - Last Filed: 08/08/24 07:16>
Update Note
Update Note:
Patient remains well in appearance.
After small bolus of IV fluids, sodium tablet he has been discharged to home.
Ambulated out of ED with steady unaided gait.
As above, recommend follow-up with PCP and has been referred to nephrology as well.
I have continued to stressed the importance of water restriction on a daily basis.
ED Attending Note
<Barbara Hussein PA-C - Last Filed: 08/07/24 19:42>
-
Portions of this chart may have been created with voice recognition software.� Occasional wrong word or��sound alike� substitutions may have occurred due to the inherent limitations of voice recognition software.
Discharge Plan
Departure
Patient Disposition: Home (Routine Discharge)
Date of Disposition: 08/08/24
Time of Disposition: 05:27
Patient with high blood pressure during this ER visit?: No
Condition: Good
Discharge Problem:
Chronic hyponatremia
Instructions: Syndrome of inappropriate antidiuretic hormone secretion (SIADH)
Prescriptions:
No Action
lorazepam 0.5 mg Tablet
0.5 mg PO TID
Patient Comments:
06/19/2023, patient filled this medication on 06/13/2023 for 30 tablets according to PDMP.
glimepiride 4 mg Tablet
4 mg PO BID
oxcarbazepine 600 mg Tablet
300 mg PO BID
pantoprazole 40 MG tablet,delayed release (DR/EC)
40 mg PO QPM
amlodipine 5 mg tablet
5 mg PO DAILY
albuterol sulfate 90 mcg/actuation HFA aerosol inhaler
2 puff INHALATION R Q4HPRN PRN (Reason: sob/wheezing)
cyclosporine 0.05 % dropperette
1 drp BOTH EYES BID
carvedilol 12.5 mg Tablet
12.5 mg PO BID
hydralazine 25 mg Tablet
25 mg PO BID
gabapentin 300 mg Capsule
300 mg PO BID
tadalafil 5 mg Tablet
5 mg PO DAILY
melatonin 10 mg Tablet
20 mg PO HS
Mounjaro 5 mg/0.5 mL Pen Injector
7.5 mg SC FR
metformin 500 MG tablet
500 mg PO BID
cetirizine [Zyrtec] 10 mg Tablet
10 mg PO DAILY
Trelegy Ellipta 100-62.5-25 mcg Blister With Device
1 inh INHALATION DAILY
Eliquis 5 mg tablet
5 mg PO BID
sodium chloride 1,000 mg Tablet,Soluble
500 mg PO BID Qty: 0 0RF
famotidine 10 mg Tablet
10 mg PO DAILY
multivitamin Tablet
1 tab PO DAILY
calcium 600 mg Capsule
1,200 mg PO DAILY
ascorbic acid (vitamin C) 1,000 mg Tablet
1,000 mg PO DAILY
albuterol sulfate 2.5 mg /3 mL (0.083 %) Solution For Nebulization
2.5 mg INHALATION QID PRN (Reason: Pain)
acetaminophen 500 mg Tablet
500 mg PO Q6H PRN (Reason: pain)
insulin aspart U-100 [Novolog FlexPen U-100 Insulin] 100 unit/mL (3 mL) Insulin Pen
1 sliding scale dose SC DIRECTED
rosuvastatin 5 mg Tablet
5 mg PO DAILY
furosemide [Lasix] 40 mg tablet
40 mg PO BID Qty: 60 5RF
Referrals:
Rigoberto Conway MD [Family Provider] - Call in 1-3 days for appt
Radha Wong MD [Active] - Call in 1-3 days for appt
Interventions
Interventions:
*Risk Screen - Suicide Last Done: 08/07/24 19:38
*General Assessment Last Done: 08/07/24 19:38
*Neglect/Abuse Screening Last Done: 08/07/24 19:38
ED- Fall Risk Assessment Last Done: 08/08/24 03:52
*ED COVID-19 Vaccine History Last Done: 08/07/24 19:38
*Nursing Disposition Last Done: 08/08/24 07:06
Discharge Date and Time
Discharge Date/Time: 08/08/24 07:07
Print Language: PALAUAN
[2024-08-07 20:01] LABS: % Basophils 0.4 % (0-2); % Eosinophils 0.4 % (0-6); % Immature Granulocytes 0.8 % (0-0.5); % Lymphocytes 14.4 % (20.5-51.1); % Monocytes 10.5 % (1.7-9.3); % Neutrophils 73.5 % (42.2-75.2); Absolute Immature Granulocytes 0.1 10^3/uL (0-0.05); Absolute Lymphocytes 1.1 10^3/uL (1.2-3.4); Absolute Monocytes 0.8 10^3/uL (0.1-0.6); Absolute Neutrophils 5.9 10^3/uL (1.4-6.5); Hematocrit 36.1 % (39.0-52.0); Hemoglobin 13.3 g/dL (13.0-18.0); Mean Corp Hgb Conc. 36.8 g/dL (33.0-37.0); Mean Corpuscular Hgb 33.9 pg (27.0-31.0); Mean Corpuscular Volume 92.1 fL (80.0-94.0); Mean Platelet Volume 9.2 fL (7.4-10.4); Nucleated Red Blood Cells % 0 % (-); Platelet Count 276 10^3/uL (130-400); Red Blood Cell Count 3.92 10^6/uL (4.70-6.10); Red Cell Dist. Width 13.1 % (11.5-14.5); White Blood Cell Count 7.9 10^3/uL (4.8-10.8)
[2024-08-07 20:22] LABS: Troponin I < 0.012 ng/ml
[2024-08-07 20:27] LABS: ALT (SGPT) 25 U/L (0-50); AST (SGOT) 23 U/L (17-59); Albumin 5.1 g/dl (3.5-5.0); Alkaline Phosphatase 41 U/L (38-126); Blood Urea Nitrogen 11 mg/dl (9-20); Calcium 8.8 mg/dl (8.4-10.2); Carbon Dioxide 23 mmol/L (22-30); Chloride 96 mmol/L (98-107); Glucose 127 mg/dl (70-99); Potassium 4.6 mmol/L (3.5-5.1); Sodium 130 mmol/L (135-145); Total Bilirubin 0.7 mg/dl (0.2-1.3); Total Protein 7.5 g/dl (6.3-8.2); eGFR > 60.00
[2024-08-07 20:41] LABS: TSH Reflex To Free T4 0.98 uIU/ml (0.47-4.68)
[2024-08-08 03:10] VITALS: BP 156/76
[2024-08-08 04:22] LABS: COVID-19 Antigen Negative (Negative)
--- NOTE | 2024-08-08 04:30 | EDRN ---
Patient was asking for something for the cramping, patient informed the that provider has to see him first it is just extremely busy and they are doing their best
[2024-08-08] MEDS: NSS 500 IV (05:15)
[2024-08-08] MEDS: SODIUM CHLORIDE 0.5 GRAM PO (05:15)
== END 2024-08-08 07:07 | disposition home or self-care (01) ==
LOC: EMR 19:28
PROVIDERS: Physician Assistant; EMERGENCY PHYSICIAN Emergency Medicine; FAMILY PHYSICIAN Family Medicine
DX: E22.2 Syndrome of inappropriate secretion of antidiuretic hormone (principal); R41.0 Disorientation, unspecified; E11.9 Type 2 diabetes mellitus without complications; E78.00 Pure hypercholesterolemia, unspecified; I10 Essential (primary) hypertension; F41.9 Anxiety disorder, unspecified; G47.30 Sleep apnea, unspecified; K21.9 Gastro-esophageal reflux disease without esophagitis; Z79.899 Other long term (current) drug therapy; Z85.46 Personal history of malignant neoplasm of prostate; Z85.820 Personal history of malignant melanoma of skin; Z86.73 Personal history of transient ischemic attack (TIA), and cerebral infarction without residual deficits; Z90.79 Acquired absence of other genital organ(s)
CPT/HCPCS: 99283; 96360; 80053; 84443; 84484; 85025; 87502; 87811; 93005

== ENCOUNTER 2024-10-01 13:50 | Outpatient (RCR) | payer OTHER, SELFPAY | END 2024-10-01 23:59 | disposition home or self-care (01) | LOC: RPT 13:50 | PROVIDERS: ATTENDING PHYSICIAN Orthopaedic Surgery Orthopaedic Surgery of the Spine; FAMILY PHYSICIAN Family Medicine | DX: M50.220 Other cervical disc displacement, mid-cervical region, unspecified level (principal); M54.12 Radiculopathy, cervical region | CPT/HCPCS: 97010; 97012; 97110; 97163; 97535 ==

== ENCOUNTER 2024-10-09 13:31 | Outpatient (RCR) | payer OTHER, SELFPAY | END 2024-10-09 15:20 | disposition home or self-care (01) | LOC: RPT 13:31 | PROVIDERS: ATTENDING PHYSICIAN Orthopaedic Surgery Orthopaedic Surgery of the Spine; FAMILY PHYSICIAN Family Medicine | DX: M50.220 Other cervical disc displacement, mid-cervical region, unspecified level (principal); M54.12 Radiculopathy, cervical region | CPT/HCPCS: 97010; 97012; 97110; 97140 ==

== ENCOUNTER 2024-12-22 13:17 | Emergency (ER) | payer OTHER, SELFPAY ==
[2024-12-22 13:19] VITALS: BP 169/81
[2024-12-22 13:29] VITALS: BP 167/75
[2024-12-22 14:00] VITALS: BP 151/95
--- NOTE | 2024-12-22 14:18 | ED.GENMED ---
History of Present Illness
General
Chief Complaint: Abdominal Symptoms
Source: patient
Time Seen by Provider: 12/22/24 14:05
History of Present Illness
History of Present Illness:
74-year-old male with a past medical history of hypertension, hyperlipidemia, DVT/PE, krn-[id number]-beblbbsus diabetes, GERD, history of C. difficile colitis presenting the emergency department at the request of GI for evaluation after he has been
experiencing diarrhea for the last 3 weeks described to be watery, multiple times per day but without any blood and accompanied with lower abdominal cramping and bilateral flank discomfort. Patient states that he contacted the office today and was
recommended to come to the ER to be further evaluated. He states that he did stool studies last week as an outpatient and while the culture was negative he was told something in the stool was elevated and that he would need a colonoscopy. It was
unclear as to if the patient was sent to the ER to be admitted for this testing to be done or if still for this to be arranged for close outpatient management. The symptoms are also associated with mild headache, generalized fatigue and weakness
and some chills. Patient reports no recent antibiotics or recent travel. No known sick contacts. No changes in medications recently.
Past History
Past History
ED Past Medical History: Cancer (Prostate CA Melanoma, right eye resected), GERD, HTN, Hypercholesterolemia, NIDDM, Psychiatric (depression, Anxiety), Other ( Trigeminal neuralgia, Sleep apnea uses CPAP, PE, C-diff, chronic hyponatremia related to
SIADH) and Other (Hyponatremia, C-diff, TIA, Gastroenteritis, Rectal bleeding, left pelvic abscess requiring IR drainage at [facility] 05/12/20, [facility] 05/12/20, Headache, Sleep apnea, PE, )
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
for removal of melanoma, right cataract removal, hemorrhoidectomy; epidurals for cervical spine disease; , Hernia repair. Twisted bowel at 4 years old)
Social History
Tobacco: Non-smoker
Alcohol: Occasional
Drug: None
Personal:
Living: alone
Employment: Disabled
Family History
Family History: Other (reviewed and noncontributory)
Review of Systems
Review of Systems
All Other Systems: ROS reviewed and negative except as documented in HPI and ROS
Phy Exam
Physical Exam
Physical Exam:
GENERAL: Alert , in no apparent distress
EYE: clear conjunctiva b/l
HEAD: NCAT
ENT: o/p clr, mmm.
CARDIAC: Regular rate and rhythm .
LUNGS: Clear breath sounds bilaterally, no acute respiratory distress, no wheezes/rales/rhonchi
ABDOMEN: Soft, mildly tender lower abdomen, no r/g, no cvat
NEUROLOGICAL: Alert and oriented
SKIN: Warm and dry, skin intact.
MUSCULOSKELETAL: No edema, well perfused.
PSYCH: Normal and appropriate interaction.
Scores
Heart Failure Risk
Heart Failure Risk Score: Not Applicable
Heart Score for Chest Pain Patients
STEMI patient?: Not applicable
Withdrawal Assessment of Alcohol
Withdrawal Assessment Completed?: Not applicable
Course
Orders/Labs/Results
Orders:
Orders
12/22/24 14:15
Morphine Sulfate 4 mg IV NOW STA
12/22/24 14:27
Complete Blood Count/With Diff Urgent
Comprehensive Metabolic Panel Urgent
Lipase Urgent
12/22/24 14:31
Urinalysis Reflex To Culture Urgent
Date Specimen was Collected: 12/22/24
Time Specimen was Collected: 14:30
Abnormal Lab Results
12/22/24
14:27
RBC 4.23 L 10^6/uL
(4.70-6.10)
MCH 33.3 H pg
(27.0-31.0)
Abs Immat Gran (auto) 0.1 H 10^3/uL
(0-0.05)
Absolute Monos (auto) 0.8 H 10^3/uL
(0.1-0.6)
Immature Gran % 0.7 H %
(0-0.5)
Lymphocytes % 17.7 L %
(20.5-51.1)
Monocytes % 11.9 H %
(1.7-9.3)
Sodium 133 L mmol/L
(135-145)
BUN 8 L mg/dl
(9-20)
Creatinine 0.6 L mg/dL
(0.7-1.3)
Alkaline Phosphatase 34 L U/L
(38-126)
12/22/24 14:27
12/22/24 14:27
Vital Signs
Initial and Last Documented VS:
Initial Vital Signs
Temp Pulse Resp BP Pulse Ox
98.3 F 72 18 169/81 98
12/22/24 13:19 12/22/24 13:19 12/22/24 13:19 12/22/24 13:19 12/22/24 13:19
Last Documented Vital Signs
Temp Pulse Resp BP Pulse Ox
98.3 F 73 17 151/84 98
12/22/24 13:19 12/22/24 16:00 12/22/24 16:00 12/22/24 16:10 12/22/24 16:10
MDM/Problems Addressed
Differential Diagnosis Includes:
- Colitis
- C. Diff
- Diverticulitis
- Ulcerative Colitis/Crohns Disease
- Electrolyte Imbalance
- Norovirus/viral etiology
- SHERITA
MDM/Problems Addressed:
74-year-old male presenting the ER with 3 weeks of watery diarrhea, reportedly had negative stool culture however reports that there was some abnormality which his GI told him he would a colonoscopy to be performed. Reports that he had a
colonoscopy 3 years ago which was reportedly negative. Patient afebrile, overall well-appearing and hemodynamically stable. Will send labs, attempt for new stool studies and treat pain with morphine. Unable to treat with anti-inflammatories due
to patient being anticoagulated on Eliquis. Will discuss with GI to further ascertain what exactly was elevated on patient's stool studies and if patient was sent to the emergency department to be admitted for further workup as an inpatient.
Chronic conditions affecting care: Other (Previous C. difficile colitis)
*Pulse Oximetry
Patient hypoxic: no
*Critical Care Note
Total Time (30-74mins, 75-104mins- exclusive of procedures): Not Applicable
Data Reviewed
Review of Other/Old Records Reveals: Labs and Records
Source: patient and records
Patient Management
Discussion with other providers: Watchstander
Escalation/DeEscalation of care consider admission/obs:
Case was discussed with GI team and labs from today were reviewed. Patient had an elevated fecal calprotectin and they will be scheduling the patient for a colonoscopy this coming Saturday. No further medication recommendations at this time.
Patient has remained hemodynamically stable and is safe for discharge home. Aware of return precautions to the emergency department but otherwise stable for discharge home.
ED Attending Note
-
Portions of this chart may have been created with voice recognition software.� Occasional wrong word or��sound alike� substitutions may have occurred due to the inherent limitations of voice recognition software.
Discharge Plan
Departure
Patient Disposition: Home (Routine Discharge)
Date of Disposition: 12/22/24
Time of Disposition: 16:01
Patient with high blood pressure during this ER visit?: Yes
Discharge Problem:
Diarrhea
Instructions: Diarrhea in teens and adults
Prescriptions:
No Action
lorazepam 0.5 mg Tablet
0.5 mg PO TID
Patient Comments:
06/19/2023, patient filled this medication on 06/13/2023 for 30 tablets according to PDMP.
glimepiride 4 mg Tablet
4 mg PO BID
oxcarbazepine 600 mg Tablet
300 mg PO BID
pantoprazole 40 MG tablet,delayed release (DR/EC)
40 mg PO QPM
amlodipine 5 mg tablet
5 mg PO DAILY
albuterol sulfate 90 mcg/actuation HFA aerosol inhaler
2 puff INHALATION R Q4HPRN PRN (Reason: sob/wheezing)
cyclosporine 0.05 % dropperette
1 drp BOTH EYES BID
carvedilol 12.5 mg Tablet
12.5 mg PO BID
hydralazine 25 mg Tablet
25 mg PO BID
gabapentin 300 mg Capsule
300 mg PO BID
tadalafil 5 mg Tablet
5 mg PO DAILY
melatonin 10 mg Tablet
20 mg PO HS
Mounjaro 5 mg/0.5 mL Pen Injector
7.5 mg SC FR
metformin 500 MG tablet
500 mg PO BID
cetirizine [Zyrtec] 10 mg Tablet
10 mg PO DAILY
Trelegy Ellipta 100-62.5-25 mcg Blister With Device
1 inh INHALATION DAILY
Eliquis 5 mg tablet
5 mg PO BID
sodium chloride 1,000 mg Tablet,Soluble
500 mg PO BID Qty: 0 0RF
famotidine 10 mg Tablet
10 mg PO DAILY
multivitamin Tablet
1 tab PO DAILY
calcium 600 mg Capsule
1,200 mg PO DAILY
ascorbic acid (vitamin C) 1,000 mg Tablet
1,000 mg PO DAILY
albuterol sulfate 2.5 mg /3 mL (0.083 %) Solution For Nebulization
2.5 mg INHALATION QID PRN (Reason: Pain)
acetaminophen 500 mg Tablet
500 mg PO Q6H PRN (Reason: pain)
insulin aspart U-100 [Novolog FlexPen U-100 Insulin] 100 unit/mL (3 mL) Insulin Pen
1 sliding scale dose SC DIRECTED
rosuvastatin 5 mg Tablet
5 mg PO DAILY
furosemide [Lasix] 40 mg tablet
40 mg PO BID Qty: 60 5RF
Referrals:
Rigoberto Conway MD [Family Provider, Family Practice]
Nikolai Ramírez MD [Active, Gastroenterology]
Referral Note: Contact for time of colonoscopy this coming Saturday
Interventions
Interventions:
*Risk Screen - Suicide Last Done: 12/22/24 13:19
*General Assessment Last Done: 12/22/24 13:19
*Neglect/Abuse Screening Last Done: 12/22/24 13:19
*ED- Fall Risk Assessment Last Done: 12/22/24 14:10
*ED COVID-19 Vaccine History Last Done: 12/22/24 14:10
*Nursing Disposition Last Done: 12/22/24 16:10
VP-[id number]-[id number] Assessment Last Done: 12/22/24 14:28
Discharge Date and Time
Discharge Date/Time: 12/22/24 16:21
Print Language: VIETNAMESE
[2024-12-22 14:26] VITALS: BMI 32.9
[2024-12-22] MEDS: MORPHINE SULFATE 4 MG IV (14:30)
[2024-12-22 14:44] LABS: % Basophils 0.7 % (0-2); % Immature Granulocytes 0.7 % (0-0.5); % Lymphocytes 17.7 % (20.5-51.1); % Monocytes 11.9 % (1.7-9.3); Absolute Basophils 0.1 10^3/uL (0-0.2); Absolute Eosinophils 0.1 10^3/uL (0-0.7); Absolute Immature Granulocytes 0.1 10^3/uL (0-0.05); Absolute Lymphocytes 1.2 10^3/uL (1.2-3.4); Absolute Monocytes 0.8 10^3/uL (0.1-0.6); Absolute Neutrophils 4.8 10^3/uL (1.4-6.5); Hematocrit 39.3 % (39.0-52.0); Hemoglobin 14.1 g/dL (13.0-18.0); Mean Corp Hgb Conc. 35.9 g/dL (33.0-37.0); Mean Corpuscular Hgb 33.3 pg (27.0-31.0); Mean Corpuscular Volume 92.9 fL (80.0-94.0); Mean Platelet Volume 9.3 fL (7.4-10.4); Nucleated Red Blood Cells % 0 % (-); Platelet Count 293 10^3/uL (130-400); Red Blood Cell Count 4.23 10^6/uL (4.70-6.10); Red Cell Dist. Width 13.3 % (11.5-14.5)
[2024-12-22 14:56] LABS: ALT (SGPT) 33 U/L (0-50); AST (SGOT) 20 U/L (17-59); Albumin 4.7 g/dl (3.5-5.0); Alkaline Phosphatase 34 U/L (38-126); Blood Urea Nitrogen 8 mg/dl (9-20); Calcium 9.1 mg/dl (8.4-10.2); Carbon Dioxide 27 mmol/L (22-30); Chloride 100 mmol/L (98-107); Estimated Creatinine Clearance > 125 ml/min; Glucose 99 mg/dl (70-99); Lipase 58 U/L (23-300); Potassium 4.2 mmol/L (3.5-5.1); Sodium 133 mmol/L (135-145); Total Protein 7.4 g/dl (6.3-8.2); eGFR > 60.00
[2024-12-22 15:01] VITALS: BP 172/96
[2024-12-22 15:13] LABS: Urine Albumin Negative (Neg - Trace); Urine Bilirubin Negative (Negative); Urine Character Clear (Clear); Urine Color Yellow; Urine Glucose Negative (Negative); Urine Ketone Negative (Negative); Urine Leukocyte Negative (Negative); Urine Nitrite Negative (Negative); Urine Occult Blood Negative (Negative); Urine Urobilinogen Negative (Neg - 1+)
[2024-12-22 16:10] VITALS: BP 151/84
== END 2024-12-22 16:21 | disposition home or self-care (01) ==
LOC: EMR 13:17
PROVIDERS: Physician Assistant Medical; EMERGENCY PHYSICIAN Emergency Medicine; FAMILY PHYSICIAN Family Medicine
DX: R19.7 Diarrhea, unspecified (principal); I10 Essential (primary) hypertension; K21.9 Gastro-esophageal reflux disease without esophagitis; E78.00 Pure hypercholesterolemia, unspecified; E11.9 Type 2 diabetes mellitus without complications; Z79.01 Long term (current) use of anticoagulants
CPT/HCPCS: 99284; 96374; 80053; 81003; 83690; 85025

== ENCOUNTER 2024-12-25 06:19 | Day surgery (SDC) | payer OTHER, SELFPAY ==
[2024-12-25 07:21] LABS: Glucose - Point of Care 117 mg/dl (70-99)
== END 2024-12-25 09:03 | disposition home or self-care (01) ==
LOC: GI 06:19
PROVIDERS: ATTENDING PHYSICIAN Specialist
DX: K64.4 Residual hemorrhoidal skin tags (principal); K55.20 Angiodysplasia of colon without hemorrhage; D12.3 Benign neoplasm of transverse colon; K63.5 Polyp of colon; K63.9 Disease of intestine, unspecified
CPT/HCPCS: 45385; 45380; 88305; 82962

== ENCOUNTER 2025-01-04 13:33 | Emergency (ER) | payer OTHER, SELFPAY ==
[2025-01-04 13:35] VITALS: BP 140/65
[2025-01-04 14:02] LABS: % Basophils 0.7 % (0-2); % Eosinophils 0.8 % (0-6); % Immature Granulocytes 0.7 % (0-0.5); % Lymphocytes 14.7 % (20.5-51.1); % Monocytes 10.4 % (1.7-9.3); % Neutrophils 72.7 % (42.2-75.2); Absolute Eosinophils 0.1 10^3/uL (0-0.7); Absolute Lymphocytes 0.9 10^3/uL (1.2-3.4); Absolute Monocytes 0.6 10^3/uL (0.1-0.6); Absolute Neutrophils 4.5 10^3/uL (1.4-6.5); Hematocrit 36.8 % (39.0-52.0); Hemoglobin 13.5 g/dL (13.0-18.0); Mean Corp Hgb Conc. 36.7 g/dL (33.0-37.0); Mean Corpuscular Hgb 33.8 pg (27.0-31.0); Mean Corpuscular Volume 92.2 fL (80.0-94.0); Mean Platelet Volume 9.8 fL (7.4-10.4); Nucleated Red Blood Cells % 0 % (-); Platelet Count 264 10^3/uL (130-400); Red Blood Cell Count 3.99 10^6/uL (4.70-6.10); Red Cell Dist. Width 13.4 % (11.5-14.5); White Blood Cell Count 6.1 10^3/uL (4.8-10.8)
[2025-01-04 14:23] LABS: ALT (SGPT) 35 U/L (0-50); AST (SGOT) 21 U/L (17-59); Albumin 4.5 g/dl (3.5-5.0); Alkaline Phosphatase 35 U/L (38-126); Blood Urea Nitrogen 6 mg/dl (9-20); Calcium 9.4 mg/dl (8.4-10.2); Carbon Dioxide 26 mmol/L (22-30); Chloride 102 mmol/L (98-107); Glucose 110 mg/dl (70-99); Potassium 4.4 mmol/L (3.5-5.1); Total Bilirubin 0.8 mg/dl (0.2-1.3); eGFR > 60.00
[2025-01-04 14:29] LABS: Sodium 134 mmol/L (135-145)
--- NOTE | 2025-01-04 15:45 | ED.GENMED ---
History of Present Illness
<Jazmine Bryson MD, Resident - Last Filed: 01/04/25 19:37>
General
Chief Complaint: Abdominal Symptoms
Source: patient
Exam Limitations: none
Time Seen by Provider: 01/04/25 16:08
History of Present Illness
History of Present Illness:
Mr. Howell is a 74yoM with a history of T2DM, HTN, prostate carcinoma s/p prostatectomy and radiation therapy (2019), saddle PE (2019, now on Eliquis), hemorrhoids s/p hemorrhoidectomy, and anxiety & depression, presenting with dizziness for 2 days
in the setting diarrhea for 5 weeks. He feels unbalanced when he stands up and has a headache. He reports watery diarrhea with oatmeal consistency 2-3 times per day. He reports pain from abdominal pressure before diarrheal episodes.
He has had diarrhea for years, since before prostate cancer treatment. The diarrhea worsened starting 5 weeks ago. He presented to the ED last week and received a colonoscopy that found multiple polyps, non-bleeding telangiectasias, and small
hemorrhoids. He started Imodium and Florastor. Imodium is the only thing he has found to decrease his diarrhea. He is concerned about drinking a lot of water, since it makes him have more diarrhea. He has been eating the BRAT (bananas, rice,
applesauce, toast) diet, as recommended by his pipe organ mechanic Dr. Ramírez.
He denied visual changes. He endorses blood in stool, which has been chronic with his hemorrhoids, and denies melena. He endorses nausea and denies emesis. He reported new-onset dizziness to his pipe organ mechanic, who told him to come to the ED.
Past History
<Jazmine Bryson MD, Resident - Last Filed: 01/04/25 19:37>
Past History
ED Past Medical History: Cancer (Prostate CA Melanoma, right eye resected), GERD, HTN, Hypercholesterolemia, NIDDM, Psychiatric (depression, Anxiety), Other ( Trigeminal neuralgia, Sleep apnea uses CPAP, PE, C-diff, chronic hyponatremia related to
SIADH) and Other (Hyponatremia, C-diff, TIA, Gastroenteritis, Rectal bleeding, left pelvic abscess requiring IR drainage at [facility] 05/12/20, [facility] 05/12/20, Headache, Sleep apnea, PE, )
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
for removal of melanoma, right cataract removal, hemorrhoidectomy; epidurals for cervical spine disease; , Hernia repair. Twisted bowel at 4 years old)
Social History
Tobacco: Non-smoker
Alcohol: Occasional
Drug: None
Personal:
Living: alone
Employment: Disabled
Family History
Family History: Other (reviewed and noncontributory)
Review of Systems
<Jazmine Bryson MD, Resident - Last Filed: 01/04/25 19:37>
Review of Systems
Constitutional: Reports weight loss
EENT: Reports no symptoms
Respiratory: Reports trouble breathing
Cardiac: Reports no symptoms
ABD/GI: Reports abdominal pain, nausea, diarrhea and bloody stools
Musculoskeletal: Reports joint pain
Neurological: Reports dizzy and headache
Psychiatric: Reports anxiety
Phy Exam
<Jazmine Bryson MD, Resident - Last Filed: 01/04/25 19:37>
General Physical Exam
General Presentation: well appearing
General age: appears stated age
General Skin: warm
General Mental: alert
General Hydration: dry mucous membranes
ENT Exam
ENT Exam: pharynx normal
Eye Exam
Eye Exam: cornea clear and conjunctiva normal
Cardiovascular Exam
Cardiovascular Exam: regular rate/rhythm, bradycardia (mildly bradycardic) and other (2+ radial pulses bilaterally)
Heart Sounds: distant
Pulmonary Exam
Pulmonary Exam: lungs clear
Gastrointestinal Exam
Gastrointestinal Exam: tender and other (hyperactive bowel sounds)
Course
<Jazmine Bryson MD, Resident - Last Filed: 01/04/25 19:37>
Orders/Labs/Results
Orders:
Orders
01/04/25 13:42
Complete Blood Count/With Diff Urgent
Comprehensive Metabolic Panel Urgent
01/04/25 18:29
0.9% Sodium Chloride 1000 ml [Nss] 1,000 ml IV BOLUS
Abnormal Lab Results
01/04/25
13:42
RBC 3.99 L 10^6/uL
(4.70-6.10)
Hct 36.8 L %
(39.0-52.0)
MCH 33.8 H pg
(27.0-31.0)
Absolute Lymphs (auto) 0.9 L 10^3/uL
(1.2-3.4)
Immature Gran % 0.7 H %
(0-0.5)
Lymphocytes % 14.7 L %
(20.5-51.1)
Monocytes % 10.4 H %
(1.7-9.3)
Sodium 134 L mmol/L
(135-145)
BUN 6 L mg/dl
(9-20)
Creatinine 0.6 L mg/dL
(0.7-1.3)
Glucose 110 H mg/dl
(70-99)
Alkaline Phosphatase 35 L U/L
(38-126)
01/04/25 13:42
01/04/25 13:42
Vital Signs
Initial and Last Documented VS:
Initial Vital Signs
Temp Pulse Resp BP Pulse Ox
98.0 F 68 16 140/65 98
01/04/25 13:35 01/04/25 13:35 01/04/25 13:35 01/04/25 13:35 01/04/25 13:35
Last Documented Vital Signs
Temp Pulse Resp BP Pulse Ox
98.0 F 68 16 140/65 98
01/04/25 13:35 01/04/25 13:35 01/04/25 13:35 01/04/25 13:35 01/04/25 15:48
<Aundrea Mccord MD - Last Filed: 01/04/25 19:57>
Orders/Labs/Results
Orders:
Orders
01/04/25 13:42
Complete Blood Count/With Diff Urgent
Comprehensive Metabolic Panel Urgent
01/04/25 18:29
0.9% Sodium Chloride 1000 ml [Nss] 1,000 ml IV BOLUS
Abnormal Lab Results
01/04/25
13:42
RBC 3.99 L 10^6/uL
(4.70-6.10)
Hct 36.8 L %
(39.0-52.0)
MCH 33.8 H pg
(27.0-31.0)
Absolute Lymphs (auto) 0.9 L 10^3/uL
(1.2-3.4)
Immature Gran % 0.7 H %
(0-0.5)
Lymphocytes % 14.7 L %
(20.5-51.1)
Monocytes % 10.4 H %
(1.7-9.3)
Sodium 134 L mmol/L
(135-145)
BUN 6 L mg/dl
(9-20)
Creatinine 0.6 L mg/dL
(0.7-1.3)
Glucose 110 H mg/dl
(70-99)
Alkaline Phosphatase 35 L U/L
(38-126)
01/04/25 13:42
01/04/25 13:42
Vital Signs
Initial and Last Documented VS:
Initial Vital Signs
Temp Pulse Resp BP Pulse Ox
98.0 F 68 16 140/65 98
01/04/25 13:35 01/04/25 13:35 01/04/25 13:35 01/04/25 13:35 01/04/25 13:35
Last Documented Vital Signs
Temp Pulse Resp BP Pulse Ox
98.0 F 68 16 140/65 98
01/04/25 13:35 01/04/25 13:35 01/04/25 13:35 01/04/25 13:35 01/04/25 15:48
<Jazmine Bryson MD, Resident - Last Filed: 01/04/25 19:37>
MDM/Problems Addressed
MDM/Problems Addressed:
Mr. Howell is a 74yoM with a PMH of T2DM, HTN, prostate carcinoma s/p prostatectomy and radiotherapy, saddle PE (2019, now on Eliquis), anxiety, and chronic hyponatremia, who is presenting with dizziness and headache for 2 days in the setting of 5
weeks of diarrhea.
Vitals
T 99, P 68, BP 140/65, R 16, Sat 98%
Physical exam
- Abdomen tender to palpation. Hyperactive bowel sounds.
- Heart regular rate and rhythm. 2+ radial pulses bilaterally
- Dry mucous membranes
Labs
- Mild hyponatremia correlates with early stage of dehydration
Differential diagnosis
- dizziness due to dehydration
- metabolic derangements
- infectious/inflammatory colitis
Plan
- IV fluids
- Oral rehydration
- Offered CT abd/pelvis. Patient declined
Chronic conditions affecting care: DM, HTN, Previous abdomnial surgery, Psychiatric illness (Anxiety), Cancer (Prostate cancer) and Other (PE)
<Jazmine Bryson MD, Resident - Last Filed: 01/04/25 19:37>
*Pulse Oximetry
SaO2: 98
Oxygen Mode of Delivery: Room air
Patient hypoxic: no
*Critical Care Note
Total Time (30-74mins, 75-104mins- exclusive of procedures): Not Applicable
ED Attending Note
<Jazmine Bryson MD, Resident - Last Filed: 01/04/25 19:37>
-
Portions of this chart may have been created with voice recognition software.� Occasional wrong word or��sound alike� substitutions may have occurred due to the inherent limitations of voice recognition software.
<Aundrea Mccord MD - Last Filed: 01/04/25 19:57>
ED Attending Note
Patient seen and examined by attending physician: Yes
I performed a history and physical exam of patient and discussed management with resident, I reviewed resident's note and agree with documented findings and plan of care.: Yes
ED Attending Note:
I have seen and evaluated the patient with a [id number] encounter. I have spoken to the [resident] and involved in the medical history, the physical exam, medical decision making.
Evaluation and management service: agree unless noted differently below.
Results interpretation: agree unless noted differently below. .
74-year-old man coming to the emergency department with dizziness and diarrhea. Patient states for the past 5 weeks he has had 1 or 2 episodes of diarrhea. It is nonbloody. He states that he seen GI and had a colonoscopy done that did show
polyps. No evidence of colitis. He has been taking Imodium as well as a probiotic with minimal relief. He has been sipping water but has only been drinking about 24 to 36 ounces of water a day. For the past few days he did feeling lightheaded
dizzy especially with movement. He has not passed out. No chest pain. No abdominal pain especially prior to the diarrhea.
GENERAL: in no acute distress
HEENT: normocephalic, extraocular movements intact, dry oral mucosa
NECK: normal inspection
RESPIRATORY: no respiratory distress, clear to auscultation bilaterally
CARDIOVASCULAR: regular rate and rhythm
ABDOMEN/: soft, non-distended, very mild tenderness to palpation, no rebound or guarding
EXTREMITIES: non-tender, no edema/swelling
NEUROLOGIC: awake and alert, moves all extremities
SKIN: warm
74-year-old man presenting to the emergency department with 5 weeks of diarrhea as well as now new lightheadedness dizziness. Arrival vitals are notable for blood pressure 140/65. On exam he does have dry oral mucosa with mild tenderness diffusely
throughout his abdomen. Concern for dehydration, metabolic derangement, colitis or diverticulitis. Blood work obtained prior to my evaluation is unremarkable. I did offer patient a CT scan the patient declined at this time as he did not want to
wait for. I did encourage p.o. fluids the patient requesting IV fluids as well. Patient educated on increasing fluid intake. Unfortunately patient unable to give a stool sample here to send for culture as he has not had any further episodes.
Will have patient follow-up with his GI team. Strict return precautions given. Will discharge this time.
Discharge Plan
Departure
Patient Disposition: Home (Routine Discharge)
Date of Disposition: 01/04/25
Time of Disposition: 19:56
Patient with high blood pressure during this ER visit?: No
Discharge Problem:
Diarrhea, Dehydration
Instructions: Dehydration, Adult (DC)
Prescriptions:
No Action
lorazepam 0.5 mg Tablet
0.5 mg PO TID
Patient Comments:
06/19/2023, patient filled this medication on 06/13/2023 for 30 tablets according to PDMP.
glimepiride 4 mg Tablet
4 mg PO BID
oxcarbazepine 600 mg Tablet
300 mg PO BID
pantoprazole 40 MG tablet,delayed release (DR/EC)
40 mg PO QPM
amlodipine 5 mg tablet
5 mg PO DAILY
albuterol sulfate 90 mcg/actuation HFA aerosol inhaler
2 puff INHALATION R Q4HPRN PRN (Reason: sob/wheezing)
cyclosporine 0.05 % dropperette
1 drp BOTH EYES BID
carvedilol 12.5 mg Tablet
12.5 mg PO BID
hydralazine 25 mg Tablet
25 mg PO BID
gabapentin 300 mg Capsule
300 mg PO BID
tadalafil 5 mg Tablet
5 mg PO DAILY
melatonin 10 mg Tablet
20 mg PO HS
Mounjaro 5 mg/0.5 mL Pen Injector
7.5 mg SC FR
metformin 500 MG tablet
500 mg PO BID
cetirizine [Zyrtec] 10 mg Tablet
10 mg PO DAILY
Trelegy Ellipta 100-62.5-25 mcg Blister With Device
1 inh INHALATION DAILY
Eliquis 5 mg tablet
5 mg PO BID
sodium chloride 1,000 mg Tablet,Soluble
500 mg PO BID Qty: 0 0RF
famotidine 10 mg Tablet
10 mg PO DAILY
multivitamin Tablet
1 tab PO DAILY
calcium 600 mg Capsule
1,200 mg PO DAILY
ascorbic acid (vitamin C) 1,000 mg Tablet
1,000 mg PO DAILY
albuterol sulfate 2.5 mg /3 mL (0.083 %) Solution For Nebulization
2.5 mg INHALATION QID PRN (Reason: Pain)
acetaminophen 500 mg Tablet
500 mg PO Q6H PRN (Reason: pain)
insulin aspart U-100 [Novolog FlexPen U-100 Insulin] 100 unit/mL (3 mL) Insulin Pen
1 sliding scale dose SC DIRECTED
rosuvastatin 5 mg Tablet
5 mg PO DAILY
furosemide [Lasix] 40 mg tablet
40 mg PO BID Qty: 60 5RF
Referrals:
Rigoberto Conway MD [Family Provider, Family Practice]
Activity Restrictions/Additional Instructions:
You were seen in the Emergency Department today for diarrhea. While you were here we performed blood work, which was reassuring. Please make sure you drink at least 64 ounces of water a day.
We would like for you to follow up with your primary care physician for further evaluation. If you experience fever, worsening of your symptoms, or develop any other new or concerning symptoms, please return to the Emergency Department immediately.
Please see the attached sheet for additional information.
Interventions
Interventions:
*Risk Screen - Suicide Last Done: 01/04/25 13:35
*General Assessment Last Done: 01/04/25 16:58
*Neglect/Abuse Screening Last Done: 01/04/25 13:35
*ED- Fall Risk Assessment Last Done: 01/04/25 16:58
*ED COVID-19 Vaccine History Last Done: 01/04/25 16:58
LK-[id number]-[id number] Assessment Last Done: 01/04/25 16:58
Discharge Date and Time
Print Language: SETSWANA
[2025-01-04 16:57] VITALS: BMI 35.0
[2025-01-04] MEDS: NSS 1000 IV (19:04)
[2025-01-04 20:05] VITALS: BP 138/78
== END 2025-01-04 20:17 | disposition home or self-care (01) ==
LOC: EMR 13:33
PROVIDERS: EMERGENCY PHYSICIAN Student in an Organized Health Care Education/Training Program; FAMILY PHYSICIAN Family Medicine
DX: R19.7 Diarrhea, unspecified (principal); E86.0 Dehydration
CPT/HCPCS: 99284; 96360; 80053; 85025

== ENCOUNTER 2025-03-27 17:01 | Emergency (ER) | payer OTHER, SELFPAY ==
[2025-03-27 17:04] VITALS: BP 143/111
[2025-03-27 17:24] LABS: Hematocrit 40.0 % (39.0-52.0); Hemoglobin 14.6 g/dL (13.0-18.0); Mean Corp Hgb Conc. 36.5 g/dL (33.0-37.0); Mean Corpuscular Volume 92.8 fL (80.0-94.0); Nucleated Red Blood Cells % 0 % (-); Platelet Count 281 10^3/uL (130-400); Red Cell Dist. Width 12.4 % (11.5-14.5)
[2025-03-27 17:42] LABS: ALT (SGPT) 33 U/L (0-50); AST (SGOT) 24 U/L (17-59); Albumin 4.8 g/dl (3.5-5.0); Alkaline Phosphatase 40 U/L (38-126); Blood Urea Nitrogen 14 mg/dl (9-20); Calcium 9.7 mg/dl (8.4-10.2); Carbon Dioxide 25 mmol/L (22-30); Chloride 101 mmol/L (98-107); Glucose 130 mg/dl (70-99); Potassium 4.1 mmol/L (3.5-5.1); Sodium 134 mmol/L (135-145); Total Protein 7.7 g/dl (6.3-8.2); eGFR > 60.00
[2025-03-27 17:53] LABS: Troponin I < 0.012 ng/ml
[2025-03-27 18:04] VITALS: BP 145/95
[2025-03-27 18:05] VITALS: BP 153/76
--- NOTE | 2025-03-27 18:08 | ED.GENMED ---
History of Present Illness
General
Chief Complaint: Chest Pain
Time Seen by Provider: 03/27/25 18:00
History of Present Illness
History of Present Illness:
75-year-old male with history of saddle PE currently on anticoagulants, hypertension, hyperlipidemia, and obstructive sleep apnea presents to the emergency department for evaluation of central chest pressure and difficulty breathing beginning today.
States he has felt some degree of shortness of breath for several days but today developed chest pressure. Denies overt pain or radiation of symptoms. No fevers or chills. Uses rescue inhaler without relief. No nausea, vomiting, or diarrhea.
Past History
Past History
ED Past Medical History: Cancer (Prostate CA Melanoma, right eye resected), GERD, HTN, Hypercholesterolemia, NIDDM, Psychiatric (depression, Anxiety), Other ( Trigeminal neuralgia, Sleep apnea uses CPAP, PE, C-diff, chronic hyponatremia related to
SIADH) and Other (Hyponatremia, C-diff, TIA, Gastroenteritis, Rectal bleeding, left pelvic abscess requiring IR drainage at [facility] 05/12/20, saddle emoboli 05/12/20, Headache, Sleep apnea, PE, )
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
for removal of melanoma, right cataract removal, hemorrhoidectomy; epidurals for cervical spine disease; , Hernia repair. Twisted bowel at 4 years old)
Social History
Tobacco: Non-smoker
Alcohol: Occasional
Drug: None
Personal:
Living: alone
Employment: Disabled
Family History
Family History: Other (reviewed and noncontributory)
Review of Systems
Review of Systems
Allergies reviewed?: Yes
All Other Systems: ROS reviewed and negative except as documented in HPI and ROS
Phy Exam
Physical Exam
Physical Exam:
GEN: Well appearing, NAD, WDWN
HEENT: Oral mucosa moist, no scleral icterus
Cardiac: Regular rate and rhythm, no murmur
Lung: No respiratory distress, no tachypnea, lungs clear to auscultation
MSK: No gross deformity or injuries
Skin: Good color, no pallor or jaundice, no rashes
Neuro: AO x3, moves all extremities freely
Psych: Calm, cooperative
Scores
Heart Score for Chest Pain Patients
STEMI patient?: No
History: Moderately Suspicious
ECG: Normal
Age: >/= 65 years
Risk Factors: 1 or 2 Risk Factors
Troponin: </= Normal Limit
Heart Score for Chest Pain Patients: 4
Heart Score Risk: 20.3% MACE over next 6 weeks
Course
Orders/Labs/Results
Orders:
Orders
03/27/25 17:08
Electrocardiogram (*1) Urgent
Reason for Study: Other
Other Reason for Exam: Respiratory Distress
Cardiac Monitoring- Treatment ONCE
EKG- Treatment ONCE
IV Insert/Care/Rem.- Treatment PRN
CR Chest - 2 Views Urgent
Comment:
Reason For Exam: respiratory distress
O2 Therapy [RESP] Urgent
Titrate/Wean O2 to maintain O2 sat greater than (%): 93
Special Instructions: TO MAINTAIN CONTINUOUS O2 SATS >/= 93%
Pulse Ox/cont/shift [RESP] Urgent
Quantity: 1
Special Instructions: continuous pulse ox
03/27/25 17:17
Complete Blood Count/With Diff Urgent
Comprehensive Metabolic Panel Urgent
NT-proBNP Urgent
Comment: ADD ON
Troponin I Urgent
03/27/25 18:08
CT Chest/abd/pelvis Angio W/wo Urgent
Comment:
Reason For Exam: chest/neck pain, dyspnea, HTN
03/27/25 18:09
Add On- LAB Urgent
Tests Added?: BNP
03/27/25 20:08
EKG- Treatment ONCE
03/27/25 20:15
Electrocardiogram (*1) Urgent
Reason for Study: Chest Pain
03/27/25 20:19
Troponin I Urgent
Abnormal Lab Results
03/27/25
17:17
RBC 4.31 L 10^6/uL
(4.70-6.10)
MCH 33.9 H pg
(27.0-31.0)
Absolute Monos (auto) 0.7 H 10^3/uL
(0.1-0.6)
Immature Gran % 0.7 H %
(0-0.5)
Monocytes % 12.1 H %
(1.7-9.3)
Sodium 134 L mmol/L
(135-145)
Glucose 130 H mg/dl
(70-99)
03/27/25 17:17
03/27/25 17:17
Vital Signs
Initial and Last Documented VS:
Initial Vital Signs
Temp Pulse Resp BP Pulse Ox
98.4 F 71 16 143/111 98
03/27/25 17:04 03/27/25 17:04 03/27/25 17:04 03/27/25 17:04 03/27/25 17:04
Last Documented Vital Signs
Temp Pulse Resp BP Pulse Ox
98.4 F 66 18 153/76 95
03/27/25 17:04 03/27/25 18:45 03/27/25 18:58 03/27/25 18:05 03/27/25 18:45
MDM/Problems Addressed
MDM/Problems Addressed:
Unclear etiology to patient's symptoms given normal dissection study, negative troponin x 2, and current use of anticoagulants making PE unlikely. While in the emergency department he notes his symptoms dramatically improved, suitable for discharge
home
Comment
Comment:
Initial EKG independently interpreted by me shows normal sinus rhythm with a first-degree block and no ST changes concerning for ischemia. Repeat EKG shows no acute changes
*Pulse Oximetry
SaO2: 98
Oxygen Mode of Delivery: Room air
Patient hypoxic: no
*Critical Care Note
Total Time (30-74mins, 75-104mins- exclusive of procedures): Not Applicable
ED Attending Note
-
Portions of this chart may have been created with voice recognition software.� Occasional wrong word or��sound alike� substitutions may have occurred due to the inherent limitations of voice recognition software.
Discharge Plan
Departure
Patient Disposition: Home (Routine Discharge)
Date of Disposition: 03/27/25
Time of Disposition: 21:15
Patient with high blood pressure during this ER visit?: No
Discharge Problem:
Chest tightness
Instructions: Shortness of breath in adults - ED (DC)
Prescriptions:
No Action
lorazepam 0.5 mg Tablet
0.5 mg PO TID
Patient Comments:
06/19/2023, patient filled this medication on 06/13/2023 for 30 tablets according to PDMP.
glimepiride 4 mg Tablet
4 mg PO BID
oxcarbazepine 600 mg Tablet
300 mg PO BID
pantoprazole 40 MG tablet,delayed release (DR/EC)
40 mg PO QPM
amlodipine 5 mg tablet
5 mg PO DAILY
albuterol sulfate 90 mcg/actuation HFA aerosol inhaler
2 puff INHALATION R Q4HPRN PRN (Reason: sob/wheezing)
cyclosporine 0.05 % dropperette
1 drp BOTH EYES BID
carvedilol 12.5 mg Tablet
12.5 mg PO BID
hydralazine 25 mg Tablet
25 mg PO BID
gabapentin 300 mg Capsule
300 mg PO BID
tadalafil 5 mg Tablet
5 mg PO DAILY
melatonin 10 mg Tablet
20 mg PO HS
Mounjaro 5 mg/0.5 mL Pen Injector
7.5 mg SC FR
metformin 500 MG tablet
500 mg PO BID
cetirizine [Zyrtec] 10 mg Tablet
10 mg PO DAILY
Trelegy Ellipta 100-62.5-25 mcg Blister With Device
1 inh INHALATION DAILY
Eliquis 5 mg tablet
5 mg PO BID
sodium chloride 1,000 mg Tablet,Soluble
500 mg PO BID Qty: 0 0RF
famotidine 10 mg Tablet
10 mg PO DAILY
multivitamin Tablet
1 tab PO DAILY
calcium 600 mg Capsule
1,200 mg PO DAILY
ascorbic acid (vitamin C) 1,000 mg Tablet
1,000 mg PO DAILY
albuterol sulfate 2.5 mg /3 mL (0.083 %) Solution For Nebulization
2.5 mg INHALATION QID PRN (Reason: Pain)
acetaminophen 500 mg Tablet
500 mg PO Q6H PRN (Reason: pain)
insulin aspart U-100 [Novolog FlexPen U-100 Insulin] 100 unit/mL (3 mL) Insulin Pen
1 sliding scale dose SC DIRECTED
rosuvastatin 5 mg Tablet
5 mg PO DAILY
furosemide [Lasix] 40 mg tablet
40 mg PO BID Qty: 60 5RF
Referrals:
UNKNOWN - PT DOES,NOT KNOW [Unknown Provider]
Interventions
Interventions:
*Risk Screen - Suicide Last Done: 03/27/25 17:04
*General Assessment Last Done: 03/27/25 18:03
*Neglect/Abuse Screening Last Done: 03/27/25 17:04
*ED COVID-19 Vaccine History Last Done: 03/27/25 18:03
ED- Cardiac Assessment Last Done: 03/27/25 18:02
Discharge Date and Time
Print Language: TURKMEN
[2025-03-27 19:00] VITALS: BP 140/72
[2025-03-27 20:00] VITALS: BP 142/84
[2025-03-27 21:00] VITALS: BP 152/85
[2025-03-27 21:14] LABS: Troponin I < 0.012 ng/ml
== END 2025-03-27 21:22 | disposition home or self-care (01) ==
LOC: EMR 17:01
PROVIDERS: Physician Assistant; EMERGENCY PHYSICIAN Emergency Medicine; FAMILY PHYSICIAN Family Medicine
DX: R07.89 Other chest pain (principal); E11.9 Type 2 diabetes mellitus without complications; E78.00 Pure hypercholesterolemia, unspecified; G47.33 Obstructive sleep apnea (adult) (pediatric); Z86.711 Personal history of pulmonary embolism; I10 Essential (primary) hypertension
CPT/HCPCS: 99285; 71046; 71275; 74174; 80053; 83880; 84484; 85025; 93005; Q9967

== ENCOUNTER → 2025-05-24 12:49 | Outpatient (REF) | payer OTHER, SELFPAY | LOC: EMG 12:49 | PROVIDERS: ATTENDING PHYSICIAN Nurse Practitioner Adult Health; FAMILY PHYSICIAN Family Medicine | DX: R29.898 Other symptoms and signs involving the musculoskeletal system (principal); R25.3 Fasciculation; R25.2 Cramp and spasm; R20.0 Anesthesia of skin | CPT/HCPCS: 95886; 95913 ==

== ENCOUNTER 2025-07-03 17:57 | Emergency (ER) | payer OTHER, SELFPAY ==
[2025-07-03 17:59] VITALS: BP 184/86
[2025-07-03 18:27] VITALS: BMI 38.8
[2025-07-03 18:38] LABS: Hematocrit 37.1 % (39.0-52.0); Hemoglobin 13.6 g/dL (13.0-18.0); Mean Corp Hgb Conc. 36.7 g/dL (33.0-37.0); Mean Corpuscular Volume 92.3 fL (80.0-94.0); Nucleated Red Blood Cells % 0 % (-); Platelet Count 237 10^3/uL (130-400); Red Cell Dist. Width 12.9 % (11.5-14.5)
[2025-07-03 18:53] LABS: COVID-19 Antigen Negative (Negative)
[2025-07-03 18:59] LABS: ALT (SGPT) 26 U/L (0-50); AST (SGOT) 27 U/L (17-59); Albumin 4.5 g/dl (3.5-5.0); Alkaline Phosphatase 26 U/L (38-126); Blood Urea Nitrogen 10 mg/dl (9-20); Calcium 8.9 mg/dl (8.4-10.2); Carbon Dioxide 20 mmol/L (22-30); Chloride 102 mmol/L (98-107); Estimated Creatinine Clearance 86 ml/min; Glucose 136 mg/dl (70-99); Lipase 85 U/L (23-300); Potassium 4.5 mmol/L (3.5-5.1); Sodium 132 mmol/L (135-145); Total Protein 7.0 g/dl (6.3-8.2); eGFR > 60.00
[2025-07-03 19:00] VITALS: BP 123/57
[2025-07-03 19:09] LABS: Troponin I < 0.012 ng/ml
--- NOTE | 2025-07-03 20:15 | ED.GENMED ---
History of Present Illness
General
Chief Complaint: Breathing Problem
Time Seen by Provider: 07/03/25 18:32
History of Present Illness
History of Present Illness:
75-year-old male with history of prior PE on Eliquis, hypertension, hyperlipidemia, [id number]-[id number] diabetes presents to the emergency department for evaluation of chest and shoulder discomfort intermittently for the past several nights. He
also reports exertional dyspnea but denies leg swelling. No fevers chills or coughing. Has had intermittent diarrhea for the past 2 weeks as well. States that the shortness of breath seems to be going on for 'a while' and he was seen in this
emergency department approximately 3 months ago for similar complaint with a grossly unremarkable workup.
Past History
Past History
ED Past Medical History: Cancer (Prostate CA Melanoma, right eye resected), GERD, HTN, Hypercholesterolemia, NIDDM, Psychiatric (depression, Anxiety), Other ( Trigeminal neuralgia, Sleep apnea uses CPAP, PE, C-diff, chronic hyponatremia related to
SIADH) and Other (Hyponatremia, C-diff, TIA, Gastroenteritis, Rectal bleeding, left pelvic abscess requiring IR drainage at [facility] 05/12/20, [facility] 05/12/20, Headache, Sleep apnea, PE, )
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
for removal of melanoma, right cataract removal, hemorrhoidectomy; epidurals for cervical spine disease; , Hernia repair. Twisted bowel at 4 years old)
Social History
Tobacco: Non-smoker
Alcohol: Occasional
Drug: None
Personal:
Living: alone
Employment: Disabled
Family History
Family History: Other (reviewed and noncontributory)
Review of Systems
Review of Systems
Allergies reviewed?: Yes
All Other Systems: ROS reviewed and negative except as documented in HPI and ROS
Phy Exam
Physical Exam
Physical Exam:
GEN: Well appearing, NAD, WDWN
Eyes: PERRLA, EOMs intact, no scleral icterus
HENT: NCAT, oral mucosa moist
Lungs: CTAB, no wheezes, rales, rhonchi, normal chest wall excursion
Cardiac: RRR, no M/R/G, no peripheral edema. Radial pulses 2+ bilat
Abdomen: S, NT, ND, NABS, no masses or hepatosplenomegaly
Neuro: AO x 3, no focal deficits to BUE/BLE, normal sensation throughout
MSK: No gross deformity or ecchymosis. No edema. No digital clubbing
Skin: No rashes, petechiae. Normal color, no pallor or jaundice.
Psych: Calm, cooperative, proper hygiene
Scores
Heart Failure Risk
Heart Failure Risk Score: Not Applicable
Course
Orders/Labs/Results
Orders:
Orders
07/03/25 17:58
EKG [Electrocardiogram (*1)] Urgent
Reason for Study: Chest Pain
EKG- Treatment ONCE
07/03/25 18:29
COVID-19 Antigen Urgent
Source: Nasal Swab
Complete Blood Count/With Diff Urgent
Comprehensive Metabolic Panel Urgent
Lipase Urgent
Pro-BNP [NT-proBNP] Urgent
Troponin I Urgent
Influenza A+B Rapid Molecular Urgent
SHERINE Source: Nasal Swab
Specimen Description:
07/03/25 19:26
CR Chest - 2 Views Urgent
Comment:
Reason For Exam: sob
Abnormal Lab Results
07/03/25
18:29
RBC 4.02 L 10^6/uL
(4.70-6.10)
Hct 37.1 L %
(39.0-52.0)
MCH 33.8 H pg
(27.0-31.0)
Absolute Monos (auto) 1.0 H 10^3/uL
(0.1-0.6)
Monocytes % 14.9 H %
(1.7-9.3)
Sodium 132 L mmol/L
(135-145)
Carbon Dioxide 20 L mmol/L
(22-30)
Glucose 136 H mg/dl
(70-99)
Alkaline Phosphatase 26 L U/L
(38-126)
07/03/25 18:29
07/03/25 18:29
Vital Signs
Initial and Last Documented VS:
Initial Vital Signs
Temp Pulse Resp BP Pulse Ox
98.7 F 68 19 184/86 97
07/03/25 17:59 07/03/25 17:59 07/03/25 17:59 07/03/25 17:59 07/03/25 17:59
Last Documented Vital Signs
Temp Pulse Resp BP Pulse Ox
98.7 F 65 20 123/57 97
07/03/25 17:59 07/03/25 20:29 07/03/25 20:29 07/03/25 19:00 07/03/25 20:29
MDM/Problems Addressed
MDM/Problems Addressed:
Patient's workup was broadly unremarkable. Cardiac enzymes are reassuring, he is anticoagulated thus I have no concern for PE. Chest x-ray clear, no infectious signs or symptoms. He does have outpatient follow-up with pulmonology due to COPD,
recommend he follow-up with his radiology transcriptionist for further evaluation of the shortness of breath as cardiac etiology is not likely. Psychosomatic is also considered
*Pulse Oximetry
SaO2: 96
Oxygen Mode of Delivery: Room air
Patient hypoxic: no
*Critical Care Note
Total Time (30-74mins, 75-104mins- exclusive of procedures): Not Applicable
ED Attending Note
-
Portions of this chart may have been created with voice recognition software.� Occasional wrong word or��sound alike� substitutions may have occurred due to the inherent limitations of voice recognition software.
Discharge Plan
Departure
Patient Disposition: Home (Routine Discharge)
Date of Disposition: 07/03/25
Time of Disposition: 20:15
Patient with high blood pressure during this ER visit?: No
Discharge Problem:
Shortness of breath
Instructions: Shortness of Breath (Dyspnea) (DC)
Prescriptions:
No Action
lorazepam 0.5 mg Tablet
0.5 mg PO TID
Patient Comments:
06/19/2023, patient filled this medication on 06/13/2023 for 30 tablets according to PDMP.
glimepiride 4 mg Tablet
4 mg PO BID
oxcarbazepine 600 mg Tablet
300 mg PO BID
pantoprazole 40 MG tablet,delayed release (DR/EC)
40 mg PO QPM
amlodipine 5 mg tablet
5 mg PO DAILY
albuterol sulfate 90 mcg/actuation HFA aerosol inhaler
2 puff INHALATION R Q4HPRN PRN (Reason: sob/wheezing)
cyclosporine 0.05 % dropperette
1 drp BOTH EYES BID
carvedilol 12.5 mg Tablet
12.5 mg PO BID
hydralazine 25 mg Tablet
25 mg PO BID
gabapentin 300 mg Capsule
300 mg PO BID
tadalafil 5 mg Tablet
5 mg PO DAILY
melatonin 10 mg Tablet
20 mg PO HS
Mounjaro 5 mg/0.5 mL Pen Injector
7.5 mg SC FR
metformin 500 MG tablet
500 mg PO BID
cetirizine [Zyrtec] 10 mg Tablet
10 mg PO DAILY
Trelegy Ellipta 100-62.5-25 mcg Blister With Device
1 inh INHALATION DAILY
Eliquis 5 mg tablet
5 mg PO BID
sodium chloride 1,000 mg Tablet,Soluble
500 mg PO BID Qty: 0 0RF
famotidine 10 mg Tablet
10 mg PO DAILY
multivitamin Tablet
1 tab PO DAILY
calcium 600 mg Capsule
1,200 mg PO DAILY
ascorbic acid (vitamin C) 1,000 mg Tablet
1,000 mg PO DAILY
albuterol sulfate 2.5 mg /3 mL (0.083 %) Solution For Nebulization
2.5 mg INHALATION QID PRN (Reason: Pain)
acetaminophen 500 mg Tablet
500 mg PO Q6H PRN (Reason: pain)
insulin aspart U-100 [Novolog FlexPen U-100 Insulin] 100 unit/mL (3 mL) Insulin Pen
1 sliding scale dose SC DIRECTED
rosuvastatin 5 mg Tablet
5 mg PO DAILY
furosemide [Lasix] 40 mg tablet
40 mg PO BID Qty: 60 5RF
Referrals:
Rigoberto Conawy MD [Family Provider, Family Practice]
Interventions
Interventions:
*General Assessment Last Done: 07/03/25 18:06
*Neglect/Abuse Screening Last Done: 07/03/25 18:06
*ED COVID-19 Vaccine History Last Done: 07/03/25 18:06
*ED Influenza Vaccine History Last Done: 07/03/25 18:06
[facility] Fall Risk Assessment Tool Last Done: 07/03/25 18:35
*Risk Screen - Suicide (C-SSRS) Last Done: 07/03/25 18:06
*Nursing Disposition Last Done: 07/03/25 20:29
ED- Cardiac Assessment Last Done: 07/03/25 20:29
ED- Pulmonary Assessment Last Done: 07/03/25 20:29
Discharge Date and Time
Discharge Date/Time: 07/03/25 20:34
Print Language: UKRAINIAN
== END 2025-07-03 20:34 | disposition home or self-care (01) ==
LOC: EMR 17:57
PROVIDERS: EMERGENCY PHYSICIAN Student in an Organized Health Care Education/Training Program; FAMILY PHYSICIAN Family Medicine
DX: R06.02 Shortness of breath (principal); R07.89 Other chest pain; E11.9 Type 2 diabetes mellitus without complications; E78.00 Pure hypercholesterolemia, unspecified; I10 Essential (primary) hypertension; Z86.711 Personal history of pulmonary embolism; Z79.01 Long term (current) use of anticoagulants; Z86.73 Personal history of transient ischemic attack (TIA), and cerebral infarction without residual deficits; Z90.49 Acquired absence of other specified parts of digestive tract; Z98.1 Arthrodesis status; Z11.52 Encounter for screening for COVID-19
CPT/HCPCS: 99285; 71046; 80053; 83690; 83880; 84484; 85025; 87502; 87811; 93005